=== PATIENT | male | born 1930 | race Caucasian/White ===

== ENCOUNTER 2017-02-11 09:47 | Inpatient (IN) | payer MEDICARE ==
[2017-02-11 11:52] LABS: Basophils % (A) 0 %; CH 30.3; CHCM 32.4; Eosinophils # (A) 0.2 k/uL (0-0.7); Eosinophils % (A) 3 %; HCT 42.2 % (39.0-53.0); HDW 2.49; HGB 13.5 gm/dL (13.0-17.5); Luc # (Auto) 0.11; Luc % (Auto) 2; Lymphocytes # (A) 1.2 k/uL (1.0-4.8); Lymphocytes % (A) 21 %; MCH 30.1 pg (25.0-35.0); MCHC 32.1 g/dL (31.0-37.0); MCV 93.8 fL (80.0-100.0); Mean Platelet Volume 7.1; Monocytes # (A) 0.4 k/uL (0-1.0); Monocytes % (A) 6 %; Neutrophils # (A) 3.9 k/uL (1.3-7.7); Neutrophils % (A) 68 %; RBC 4.49 m/uL (4.30-5.90); RDW 12.4 % (11.5-15.5); WBC 5.7 k/uL (3.8-10.6); WBC (Perox) 5.68
--- NOTE | 2017-02-11 11:59 | P.HPIM ---
History of Present Illness H&P Date: 02/11/17 Chief Complaint: Hallucinations and altered mental status changes His is a 86-year-old male with a known history of hypertension and hypothyroidism. He recently lost his about 2 months ago. He was a direct admit from Dr. Hinds's office since he has been having hallucinations for the past 2-3 days. Patient has been seeing ghosts in his home that may represent his . But sometimes there is 2 ghosts also present in the room. He has had no new meds. He has not been on any pain medications. No evidence of any signs of acute infection. He has been admitted to the hospital for further evaluation and to rule out a possible stroke. Computed tomography scan of the brain has been ordered. Counseled in place for neurology and psychiatry. He has been admitted to the telemetry floor. We'll check urinalysis to rule out a UTI. Check chest x-ray and CBC and BMP. Patient denies any fever chills or sweats. Denies any nausea or vomiting. Denies any bowel movement changes or urinary symptoms. Patient denies any dizziness or lightheadedness. He denies any slurred speech or facial droop. He denies any numbness or tingling and on one side of his body. He does report that he has been eating mostly sandwiches in August had not been drinking as much water as he should be. 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 History of Any Multi-Drug Resistant Organisms: None Reported Past Surgical History: Cholecystectomy Additional Past Surgical History / Comment(s): Colonoscopy, cataract removal bilaterally. Past Anesthesia/Blood Transfusion Reactions: No Reported Reaction Smoking Status: Never smoker Past Alcohol Use History: Occasional - Past Family History Mother Family Medical History: No Reported History Additional Family Medical History / Comment(s): Mother was healthy and lived to be 92 yrs old. Father Family Medical History: Unable to Obtain Additional Family Medical History / Comment(s): Father at the age of 52 yrs in [place] Medications and Allergies Home Medications Medication Instructions Recorded Confirmed Type Aspirin EC [Ecotrin Low Dose] 81 mg PO DAILY 02/11/17 02/11/17 History Atenolol [Tenormin] 37.5 mg PO DAILY 02/11/17 02/11/17 History Levothyroxine Sodium [Synthroid] 88 mcg PO DAILY 02/11/17 02/11/17 History Magnesium Chloride [Slow Mag] 64 mg PO DAILY 02/11/17 02/11/17 History Multivitamins, Thera [Multivitamin 1 tab PO DAILY 02/11/17 02/11/17 History (formulary)] Potassium Chloride [Klor-Con 10] 10 meq PO DAILY 02/11/17 02/11/17 History Allergies Allergy/AdvReac Type Severity Reaction Status Date / Time No Known Allergies Allergy Verified 02/11/17 10:38 Physical Exam Vitals: Vital Signs Temp Pulse Resp BP Pulse Ox 02/11/17 10:33 97.4 F L 66 16 130/73 99 Intake and Output 02/10/17 02/11/17 02/11/17 22:59 06:59 14:59 Other: Weight 85.3 kg Patient Weight 02/12/17 06:59 Weight 85.3 kg Head normocephalic Neck supple Lungs clear to auscultation bilaterally no wheezing or crackles Heart regular rate and rhythm S1-S2, no rub or gallop Abdomen is soft nontender nondistended positive bowel sounds no hepatosplenomegaly Extremities mild edema in the left ankle Neuro alert and orientated to 2 disorientated to the date related no facial droop. No slurred speech. Hand smoking pipe coater and lower extremity strength equal bilaterally Thrombosis Risk Factor Assmnt - Choose All That Apply Any of the Below Risk Factors Present?: Yes Other Risk Factors: Yes Each Risk Factor Represents 3 Points: Age 75 years or older Other congenital or acquired thrombophilia - If yes, enter type in comment: No Thrombosis Risk Factor Assessment Total Risk Factor Score: 3 Thrombosis Risk Factor Assessment Level: Moderate Risk Assessment and Plan Assessment: 1. Altered mental status changes with hallucinations: Patient seeing ghosts. Check a computed tomography scan of the brain rule out stroke. Rule out infectious process checking urinalysis and chest x-ray. Check routine blood work CBC and CMP rule out any acute kidney injury or electro imbalance. Consult neurology and psychiatry. We'll start patient on normal saline at 50 mL an hour 2. Essential hypertension: Blood pressures are stable resume atenolol 3. Hypothyroidism: Resume Synthroid 4. GI prophylaxis Pepcid and DVT prophylaxis subcu heparin Time with Patient: Greater than 30 (Greater than 50% of the total time spent in counseling and coordination of care.I performed an examination of the patient and discussed their management with the physician Japanese Interpreter. I have reviewed the Physician Japanese Interpreter's notes and agree with the documented findings and plan of care)
[2017-02-11 12:06] LABS: ALT 39 U/L (21-72); AST 33 U/L (17-59); Alkaline Phosphatase 72 U/L (38-126); Anion Gap 10 mmol/L; Blood Urea Nitrogen 15 mg/dL (9-20); Calcium 9.5 mg/dL (8.4-10.2); Carbon Dioxide 27 mmol/L (22-30); Chloride 105 mmol/L (98-107); Glucose 88 mg/dL (74-99); Non-African American GFR(MDRD) >60 (>60 ml/min/1.73 sqM); Potassium 4.2 mmol/L (3.5-5.1); Sodium 142 mmol/L (137-145); Total Bilirubin 1.8 mg/dL (0.2-1.3); Total Protein 6.9 g/dL (6.3-8.2)
--- NOTE | 2017-02-11 12:40 | CT ---
EXAMINATION TYPE: CT brain wo con DATE OF EXAM: 02/11/2017 COMPARISON: NONE HISTORY: 86-year-old male confusion, mental status changes, rule out stroke. TECHNIQUE: Examination was done in axial plane without intravenous contrast. Coronal and sagittal r econstructions performed. CT DLP: 1054.2 mGycm Automated exposure control for dose reduction was used. FINDINGS: There is no evidence of acute intracranial hemorrhage, acute ischemic changes, mass, mass-effect, or extra-axial fluid collection. There is no effacement of cerebral sulci or basal subarachnoid cister ns. There is no midline shift. Yoo-white matter distinction is preserved. There is mild to moderate generalized supratentorial volume loss and patchy white matter hypodensitie s in both cerebral hemispheres. Old lacunar infarcts in the bilateral basal ganglia and some encephal omalacia within the anterior left subinsular white matter. Secondary mild prominence to the ventricular system. Moderate mucosal thickening ethmoid air cells. Some frothy partial opacification in the right sphenoi d sinus. Mastoid air cells well pneumatized. IMPRESSION: 1. [id number] atrophy and changes of chronic small vessel ischemic disease. No acute intracrani al abnormality seen. 2. Some frothy partial opacification of the right sphenoid sinus can be seen in the setting of acute viral sinusitis.
--- NOTE | 2017-02-11 13:08 | XR ---
EXAMINATION TYPE: XR chest 2V DATE OF EXAM: 02/11/2017 COMPARISON: NONE INDICATION: Confusion rule out pneumonia. No other history is provided. TECHNIQUE: Frontal and lateral views of the chest are obtained. FINDINGS: The heart size is normal. The pulmonary vasculature is normal. The lungs are clear. IMPRESSION: 1. No acute pulmonary process.
[2017-02-11 13:58] LABS: Appearance,Urine Clear (Clear); Bilirubin,Urine Negative (Negative); Glucose,Urine (UA) Negative (Negative); Ketones,Urine Negative (Negative); Leukocyte Esterase,Urine Negative (Negative); Nitrite,Urine Negative (Negative); Protein,Urine Negative (Negative); Specific Gravity,Urine 1.015 (1.001-1.035); UA Billing (MACRO vs. MICRO) CHEM; Urobilinogen,Urine <2.0 mg/dL (<2.0)
[2017-02-11] MEDS: SODIUM CHLORIDE 0.9% 1,000 ML IV SCH (14:27)
--- NOTE | 2017-02-11 20:01 | P.CNNES ---
History of Present Illness Consult date: 02/11/17 History of Present Illness: The patient an 86-year-old white male who states that on Wednesday he saw some people in his house. He states that they were unfamiliar people and he was not sure how they get in. He spoke to them and they did not respond. The images were clear. He did not think it was a hallucination. He thought the images were real. He states that they were not anybody that he had recognized. At one point one of the persons he felt uneasy with because he started touching his feet. He states that person felt hairy. The patient denies any history of hallucinations. He denies any headache dizziness weakness. He states he's been in good health. He states that his he has not had any depression or any recent change in his medications. When asked if he may have taken too much of one of his medicines he says it is a possibility. A CT of the brain which showed age-related atrophy. Recommend admit to the hospital. Denies having any such experience in the past. He states that this only happened on one day which was Wednesday. 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 History of Any Multi-Drug Resistant Organisms: None Reported Past Surgical History: Cholecystectomy Additional Past Surgical History / Comment(s): Colonoscopy, cataract removal bilaterally. Past Anesthesia/Blood Transfusion Reactions: No Reported Reaction Smoking Status: Never smoker Past Alcohol Use History: Occasional - Past Family History Mother Family Medical History: No Reported History Additional Family Medical History / Comment(s): Mother was healthy and lived to be 92 yrs old. Father Family Medical History: Unable to Obtain Additional Family Medical History / Comment(s): Father at the age of 52 yrs in [place] Medications and Allergies Home Medications Medication Instructions Recorded Confirmed Type Aspirin EC [Ecotrin Low Dose] 81 mg PO DAILY 02/11/17 02/11/17 History Atenolol [Tenormin] 37.5 mg PO DAILY 02/11/17 02/11/17 History Levothyroxine Sodium [Synthroid] 88 mcg PO DAILY 02/11/17 02/11/17 History Magnesium Chloride [Slow Mag] 64 mg PO DAILY 02/11/17 02/11/17 History Multivitamins, Thera [Multivitamin 1 tab PO DAILY 02/11/17 02/11/17 History (formulary)] Potassium Chloride [Klor-Con 10] 10 meq PO DAILY 02/11/17 02/11/17 History Allergies Allergy/AdvReac Type Severity Reaction Status Date / Time No Known Allergies Allergy Verified 02/11/17 10:38 Physical Examination - Vital Signs Vital Signs: Vital Signs Temp Pulse Resp BP Pulse Ox 02/11/17 17:00 96.6 F L 64 16 126/64 100 02/11/17 13:55 72 16 125/58 96 02/11/17 11:00 72 16 02/11/17 10:33 97.4 F L 66 16 130/73 99 Intake and Output 02/11/17 02/11/17 02/11/17 06:59 14:59 22:59 Intake Total 220 380 Output Total 400 250 Balance -180 130 Intake: Intake, IV Titration 200 Amount Sodium Chloride 0.9% 1, 200 000 ml @ 50 mls/hr IV . Q20H [facility] Rx#:[id number] Oral 220 180 Output: Urine 400 250 Other: # Voids 2 Weight 85.3 kg Patient Weight 02/12/17 06:59 Weight 85.3 kg - Constitutional General appearance: average body habitus - EENT EENT: PERRL, hearing intact, vision intact - Respiratory Respiratory: lungs clear, normal breath sounds - Cardiovascular Cardiovascular: regular rate, normal S1, normal S2 - Integumentary Integumentary: normal - Neurologic Logic examination mental status he was awake alert oriented 3 his speech was fluent there was no a aphasia or dysarthria Cranial nerve examination: PERRL, EOMI, VFF, V1/V2/V3 grossly intact, face symmetric, tongue midline Speech examination: intact Detailed motor examination: grossly full strength in all extremities Reflexes: 2+: knee - Psychiatric Psychiatric: mood/affect appropriate Results - Laboratory Findings CBC and BMP: 02/11/17 11:31 02/11/17 11:31 Abnormal Lab Findings: Abnormal Labs 02/11/17 11:31 Total Bilirubin 1.8 H Assessment and Plan (1) Episodes of formed visual hallucinations Current Visit: Yes Status: Acute SNOMED Code(s): 92133217 Plan: The patient is an 86-year-old man who had an episode of visual hallucination which was a clear image of a few people on one day. The patient is alert and oriented there is no evidence of delirium. There is no history of psychiatric history. One of the images that he saw on Wednesday was a threatening unwanted person. Sedation is of unclear etiology. He had a CT of the brain which showed some age-related atrophy. Is possible that medication may have had some effect and it is unclear whether he had consumed any alcohol that day. Recommend Thyroid and B12 screening And EEG.
[2017-02-11] MEDS: HEPARIN SODIUM,PORCINE 5,000 UNIT/ML 1 ML VIAL SQ SCH (20:33)
[2017-02-12] MEDS: LEVOTHYROXINE 88 MCG TAB PO SCH (06:43)
[2017-02-12 06:45] LABS: Basophils % (A) 0 %; CHCM 33.4; Eosinophils # (A) 0.2 k/uL (0-0.7); Eosinophils % (A) 4 %; HCT 37.7 % (39.0-53.0); HDW 2.35; HGB 12.1 gm/dL (13.0-17.5); Luc % (Auto) 3; Lymphocytes # (A) 1.1 k/uL (1.0-4.8); Lymphocytes % (A) 27 %; MCH 30.8 pg (25.0-35.0); MCV 96.2 fL (80.0-100.0); Mean Platelet Volume 8.4; Monocytes # (A) 0.3 k/uL (0-1.0); Monocytes % (A) 8 %; Neutrophils # (A) 2.3 k/uL (1.3-7.7); Neutrophils % (A) 58 %; RBC 3.92 m/uL (4.30-5.90); RDW 13.4 % (11.5-15.5); WBC (Perox) 3.09
[2017-02-12] MEDS: SODIUM CHLORIDE 0.9% 1,000 ML IV SCH (06:53)
[2017-02-12 06:58] LABS: ALT 37 U/L (21-72); AST 28 U/L (17-59); Alkaline Phosphatase 61 U/L (38-126); Anion Gap 7 mmol/L; Blood Urea Nitrogen 19 mg/dL (9-20); Calcium 9.2 mg/dL (8.4-10.2); Carbon Dioxide 26 mmol/L (22-30); Chloride 107 mmol/L (98-107); Glucose 90 mg/dL (74-99); Non-African American GFR(MDRD) >60 (>60 ml/min/1.73 sqM); Potassium 4.1 mmol/L (3.5-5.1); Sodium 140 mmol/L (137-145); Total Bilirubin 1.3 mg/dL (0.2-1.3); Total Protein 5.7 g/dL (6.3-8.2)
[2017-02-12] MEDS: FAMOTIDINE 20 MG TAB PO SCH (10:46)
[2017-02-12] MEDS: ASPIRIN 81 MG PO SCH (10:46)
[2017-02-12] MEDS: MULTIVITAMINS, THERA 1 EACH TAB PO SCH (10:46)
[2017-02-12] MEDS: HEPARIN SODIUM,PORCINE 5,000 UNIT/ML 1 ML VIAL SQ SCH ×2 (10:46→20:33)
[2017-02-12] MEDS: ATENOLOL 25 MG TAB PO SCH (10:46)
[2017-02-12] MEDS: POTASSIUM CHLORIDE ER 10 MEQ TAB.ER.PRT PO SCH (10:47)
[2017-02-12] MEDS: MAGNESIUM OXIDE 400 MG TAB PO SCH (10:47)
--- NOTE | 2017-02-12 14:18 | P.PN ---
Subjective Progress Note Date: 02/12/17 Principal diagnosis: His is a 86-year-old male with a known history of hypertension and hypothyroidism. He recently lost his about 2 months ago. He was a direct admit from Dr. Hinds's office since he has been having hallucinations for the past 2-3 days. Patient has been seeing ghosts in his home that may represent his . But sometimes there is 2 ghosts also present in the room. He has had no new meds. He has not been on any pain medications. No evidence of any signs of acute infection. He has been admitted to the hospital for further evaluation and to rule out a possible stroke. Computed tomography scan of the brain has been ordered. Counseled in place for neurology and psychiatry. He has been admitted to the telemetry floor. We'll check urinalysis to rule out a UTI. Check chest x-ray and CBC and BMP. Patient denies any fever chills or sweats. Denies any nausea or vomiting. Denies any bowel movement changes or urinary symptoms. Patient denies any dizziness or lightheadedness. He denies any slurred speech or facial droop. He denies any numbness or tingling and on one side of his body. He does report that he has been eating mostly sandwiches in August had not been drinking as much water as he should be. On 02/12/2017 patient is alert and oriented 3 he has no symptoms at this time . he was questioned more about his symptoms, he states that on Wednesday night he had an episode of visual hallucinations where he was seen in people in his home , he lives by himself, he was scared that the time, he called his relatives who came in at night, patient was still seen in people that were not in the room when his relatives were very. He denies consuming any alcohol in the last year or so, he denies taking any medication or supplements other than what's on his list. He had similar episode on Wednesday night and Wednesday night, he was brought in by his son-in-law to the office and was admitted to the hospital. Patient lives by himself and his daughter and son-in-law are out of town till Wednesday night. Objective - Vital Signs Vital signs: Vital Signs Temp 98.0 F 02/12/17 08:00 Pulse 64 02/12/17 11:23 Resp 17 02/12/17 11:23 BP 129/67 02/12/17 11:23 Pulse Ox 98 02/12/17 11:23 Intake & Output 02/11/17 02/12/17 02/12/17 18:59 06:59 18:59 Intake Total 600 720 Output Total 650 Balance -50 720 Weight 85.3 kg 84 kg Intake: Intake, IV Titration 200 Amount Sodium Chloride 0.9% 1, 200 000 ml @ 50 mls/hr IV . Q20H [facility] Rx#:[id number] Oral 400 720 Output: Urine 650 Other: Voiding Method Toilet Urinal # Voids 2 1 - Exam HEENT head normocephalic and atraumatic Neck is supple no JVD no goiter no lymphadenopathy Chest is clear to auscultation no crackles no wheezing Cardiac exam reveals regular heart sounds no murmurs Abdomen is soft nontender no organomegaly Extremity exam reveals no edema no cyanosis or clubbing - Labs CBC & Chem 7: 02/12/17 06:34 02/12/17 06:30 Labs: Abnormal Lab Results - Last 24 Hours (Table) 02/12/17 02/12/17 Range/Units 06:30 06:34 RBC 3.92 L (4.30-5.90) m/uL Hgb 12.1 L (13.0-17.5) gm/dL Hct 37.7 L (39.0-53.0) % Plt Count 144 L (150-450) k/uL Total Protein 5.7 L (6.3-8.2) g/dL Albumin 3.1 L (3.5-5.0) g/dL Microbiology - Last 24 Hours (Table) 02/11/17 13:45 Urine Culture - Preliminary Urine,Clean Catch Assessment and Plan Plan: 1. Altered mental status changes with hallucinations: Patient states he was seeing ghosts. Check a computed tomography scan of the brain rule out stroke. Rule out infectious process checking urinalysis and chest x-ray. Check routine blood work CBC and CMP rule out any acute kidney injury or electro imbalance. Consult neurology and psychiatry. We'll start patient on normal saline at 50 mL an hour At this time no evidence of infection, computed tomography scan with chronic changes without any acute abnormality Awaiting EEG, awaiting psychiatry input 2. Essential hypertension: Blood pressures are stable resume atenolol 3. Hypothyroidism: Resume Synthroid 4. GI prophylaxis Pepcid and DVT prophylaxis subcu heparin
--- NOTE | 2017-02-12 22:18 | P.CN ---
Psychiatric Consult - . Consult date: 02/12/17 Consult:: 02/12/17 21:15 IDENTIFYING DATA: Pt is an 86yo CM who is recently and now living alone. Psychiatry consulted due to reported hallucinations. HPI: Upon evaluation this afternoon, pt states that although he does want to talk to psychiatry, he would prefer if I could come back tomorrow to speak with him. However, he did agree to a brief conversation and some basic questioning. He states that he had been experiencing hallucinations prior to admission, but no hallucinations during his hospital stay. Describes these hallucinations as seeing pillow with their head covered and they will disappear when he tries to touch them. States that these hallucinations do not scare him but do make him feel concerned. Denies auditory hallucinations. Also, eludes to experiencing illusions as well. Describes seeing a machine laying on the shelf in his room but thinking it is a head initially until he looks at it again. He denies any previous h/o psychotic symptoms and these symptoms developed in less than two weeks. Does report some difficulty with memory for the past couple weeks and having difficulty with word finding during evaluation today. No family members present at bedside for collateral information at this time. He denies SI and HI. PAST PSYCHIATRIC HISTORY: none PMH: Hypertension, Osteoarthritis (OA), Pneumonia, Hypothyroid PSH: Cholecystectomy, bilateral cataract removal ALLERGIES: NKDA MEDICATIONS: Active Medications Aspirin (Aspirin) 81 mg PO DAILY [facility] Last Admin: 02/12/17 10:46 Dose: 81 mg Atenolol (Tenormin) 37.5 mg PO DAILY [facility] Last Admin: 02/12/17 10:46 Dose: 37.5 mg Famotidine (Pepcid) 20 mg PO DAILY [facility] Last Admin: 02/12/17 10:46 Dose: 20 mg Heparin Sodium (Porcine) (Heparin) 5,000 unit SQ Q12HR [facility] Last Admin: 02/12/17 20:33 Dose: 5,000 unit Sodium Chloride (Saline 0.9%) 1,000 mls @ 50 mls/hr IV .Q20H [facility] Last Admin: 02/12/17 06:53 Dose: 50 mls/hr Levothyroxine Sodium (Synthroid) 88 mcg PO 0630 [facility] Last Admin: 02/12/17 06:43 Dose: 88 mcg Magnesium Oxide (Mag-Ox) 400 mg PO DAILY [facility] Last Admin: 02/12/17 10:47 Dose: 400 mg Multivitamins (Theragran) 1 each PO 1200 [facility] Last Admin: 02/12/17 10:46 Dose: 1 each Potassium Chloride (K-Dur 10) 10 meq PO DAILY [facility] Last Admin: 02/12/17 10:47 Dose: 10 meq CHEMICAL DEPENDENCY HISTORY: denies use of alcohol and/or illicit substances FAMILY PSYCHIATRIC HISTORY: denies h/o of mental illness, including dementia in family members SOCIAL HISTORY: pt reports that he has been x 3, with the last two resulting in pt becoming a and the first ending in divorce. He was to his 3rd for the past 17 years and she 2 months ago. Pt states that he also lost a close friend of theirs a week after his 's . Pt has children from a previous marriage and a step-daughter from recent marriage. 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 Pt has a highschool education. Has two years of experience after being drafted into the [employer], but cannot recall reason for being sent to [place]. MENTAL STATUS EXAM: Pt is an 86yo male who appears stated age and fairly well- groomed. Speech is spontaneous with normal volume and rate. Has difficulty with word finding throughout exam. Mood is euthymic and affect is appropriate. Denies SI, HI and AH. Reports that he has seen "pillows" at this house that were not there and according to previous documentation resembled humans, including his recently . Oriented to person, time and place. Possible memory impairment vs word-finding difficulty. Judgment and insight is fair. STRENGTHS/WEAKNESSES: support system, cooperation in treatment/recent loss of a spouse, living alone INTELLECTUAL FUNCTIONING: average ASSESSMENT: 1. Psychosis Unspecified 2. R/O MDD, single episode, severe with psychotic features 3. R/O Bereavement 4. R/O Mild Neurocognitive Disorder PLAN: Patient requesting to speak to psychiatry tomorrow when his family members are present. Will follow-up and obtain more collateral information, if available. Also, recommend neurocognitive testing, including an MMSE. Will hold off on starting psychotropic medications for now until more information can be obtained for more definitive diagnosis. If patient medically stable and ready for discharge, he can also follow-up with psychiatry on an outpatient basis for further evaluation and treatment. 02/12/17 22:09 02/12/17 22:17
[2017-02-13] MEDS: SODIUM CHLORIDE 0.9% 1,000 ML IV SCH ×2 (05:45→19:43)
[2017-02-13] MEDS: LEVOTHYROXINE 88 MCG TAB PO SCH (05:46)
[2017-02-13 06:34] LABS: Basophils % (A) 0 %; CH 31.4; CHCM 33.5; Eosinophils # (A) 0.1 k/uL (0-0.7); Eosinophils % (A) 4 %; HGB 13.1 gm/dL (13.0-17.5); Luc # (Auto) 0.11; Luc % (Auto) 3; Lymphocytes # (A) 1.1 k/uL (1.0-4.8); Lymphocytes % (A) 28 %; MCH 30.7 pg (25.0-35.0); MCHC 32.7 g/dL (31.0-37.0); MCV 94.1 fL (80.0-100.0); Mean Platelet Volume 7.7; Monocytes # (A) 0.3 k/uL (0-1.0); Monocytes % (A) 6 %; Neutrophils # (A) 2.3 k/uL (1.3-7.7); Neutrophils % (A) 59 %; RBC 4.26 m/uL (4.30-5.90); RDW 13.6 % (11.5-15.5); WBC 3.9 k/uL (3.8-10.6); WBC (Perox) 4.09
[2017-02-13 06:51] LABS: Chloride 106 mmol/L (98-107); Glucose 85 mg/dL (74-99); Potassium 4.1 mmol/L (3.5-5.1); Sodium 142 mmol/L (137-145)
[2017-02-13 06:52] LABS: ALT 34 U/L (21-72); AST 34 U/L (17-59); Alkaline Phosphatase 62 U/L (38-126); Anion Gap 7 mmol/L; Blood Urea Nitrogen 15 mg/dL (9-20); Calcium 9.6 mg/dL (8.4-10.2); Carbon Dioxide 29 mmol/L (22-30); Non-African American GFR(MDRD) >60 (>60 ml/min/1.73 sqM); Total Bilirubin 1.3 mg/dL (0.2-1.3); Total Protein 6.5 g/dL (6.3-8.2)
[2017-02-13] MEDS: MAGNESIUM OXIDE 400 MG TAB PO SCH (09:06)
[2017-02-13] MEDS: POTASSIUM CHLORIDE ER 10 MEQ TAB.ER.PRT PO SCH (09:06)
[2017-02-13] MEDS: FAMOTIDINE 20 MG TAB PO SCH (09:06)
[2017-02-13] MEDS: ASPIRIN 81 MG PO SCH (09:06)
[2017-02-13] MEDS: ATENOLOL 25 MG TAB PO SCH (09:06)
[2017-02-13] MEDS: HEPARIN SODIUM,PORCINE 5,000 UNIT/ML 1 ML VIAL SQ SCH ×3 (09:07→19:43)
[2017-02-13] MEDS: MULTIVITAMINS, THERA 1 EACH TAB PO SCH (09:07)
--- NOTE | 2017-02-13 10:37 | P.PN ---
Subjective Principal diagnosis: His is a 86-year-old male with a known history of hypertension and hypothyroidism. He recently lost his about 2 months ago. He was a direct admit from Dr. Hinds's office since he has been having hallucinations for the past 2-3 days. Patient has been seeing ghosts in his home that may represent his . But sometimes there is 2 ghosts also present in the room. He has had no new meds. He has not been on any pain medications. No evidence of any signs of acute infection. He has been admitted to the hospital for further evaluation and to rule out a possible stroke. Computed tomography scan of the brain has been ordered. Counseled in place for neurology and psychiatry. He has been admitted to the telemetry floor. We'll check urinalysis to rule out a UTI. Check chest x-ray and CBC and BMP. Patient denies any fever chills or sweats. Denies any nausea or vomiting. Denies any bowel movement changes or urinary symptoms. Patient denies any dizziness or lightheadedness. He denies any slurred speech or facial droop. He denies any numbness or tingling and on one side of his body. He does report that he has been eating mostly sandwiches in August had not been drinking as much water as he should be. On 02/12/2017 patient is alert and oriented 3 he has no symptoms at this time . he was questioned more about his symptoms, he states that on Wednesday night he had an episode of visual hallucinations where he was seen in people in his home , he lives by himself, he was scared that the time, he called his relatives who came in at night, patient was still seen in people that were not in the room when his relatives were very. He denies consuming any alcohol in the last year or so, he denies taking any medication or supplements other than what's on his list. He had similar episode on Wednesday night and Wednesday night, he was brought in by his son-in-law to the office and was admitted to the hospital. Patient lives by himself and his daughter and son-in-law are out of town till Wednesday night. on 02/13/2017 patient is alert and oriented 3 he had no episodes of hallucination since admission he was evaluated by psychiatry yesterday, psychiatrist still trying to collect more information prior to starting him on any medications, patient is medically stable, his family is out of town until tomorrow, will arrange for discharge to home tomorrow if stable family can pick him up on the way home from [facility] per patient. Objective - Vital Signs Vital signs: Vital Signs Temp 97.7 F 02/13/17 09:09 Pulse 72 02/13/17 09:09 Resp 18 02/13/17 09:09 BP 100/46 02/13/17 09:09 Pulse Ox 96 02/13/17 04:00 Intake & Output 02/12/17 02/13/17 02/13/17 18:59 06:59 18:59 Intake Total 1560 200 240 Output Total 200 100 Balance 1560 0 140 Weight 83 kg Intake: Intake, IV Titration 600 Amount Sodium Chloride 0.9% 1, 600 000 ml @ 50 mls/hr IV . Q20H SHASTA Rx#:[id number] Oral 960 200 240 Output: Urine 200 100 Other: Voiding Method Toilet Toilet Urinal Urinal # Voids 1 1 - Exam HEENT head normocephalic and atraumatic Neck is supple no JVD no goiter no lymphadenopathy Chest is clear to auscultation no crackles no wheezing Cardiac exam reveals regular heart sounds no murmurs Abdomen is soft nontender no organomegaly Extremity exam reveals no edema no cyanosis or clubbing - Labs CBC & Chem 7: 02/13/17 05:51 02/13/17 05:48 Labs: Abnormal Lab Results - Last 24 Hours (Table) 02/13/17 Range/Units 05:51 RBC 4.26 L (4.30-5.90) m/uL Microbiology - Last 24 Hours (Table) 02/11/17 13:45 Urine Culture - Final Urine,Clean Catch Assessment and Plan Plan: 1. Altered mental status changes with hallucinations: Patient states he was seeing ghosts. Check a computed tomography scan of the brain rule out stroke. Rule out infectious process checking urinalysis and chest x-ray. Check routine blood work CBC and CMP rule out any acute kidney injury or electro imbalance. Consult neurology and psychiatry. We'll start patient on normal saline at 50 mL an hour At this time no evidence of infection, computed tomography scan with chronic changes without any acute abnormality Awaiting EEG, psychiatry consult reviewed awaiting further input about possible psychiatric medication for psychosis if needed. Will follow in a.m. possible discharge to home tomorrow if stable. 2. Essential hypertension: Blood pressures are stable resume atenolol 3. Hypothyroidism: Resume Synthroid 4. GI prophylaxis Pepcid and DVT prophylaxis subcu heparin
--- NOTE | 2017-02-13 21:42 | EEG ---
ELECTROENCEPHALOGRAM REPORT DATE OF EE02/12/2017. REFERRING PHYSICIAN: Dr. Hinds. CONSULTING AND INTERPRETING PHYSICIAN: Dr. Mary Alarcon. INDICATION FOR EXAMINATION: This patient is an 86-year-old male being evaluated for hallucinations and possible stroke. AGE: 86. EEG FINDINGS: A routine 21-channel awake digital EEG recording was accomplished utilizing the 10-20 international system with bipolar and referential montages. The background activity in the most alert resting state consists of a low to medium amplitude, fairly well- developed and well-sustained 6-7 Hz activity over the posterior head regions. This posterior rhythm attenuates to eye opening. There is a small amount of low amplitude 18-20 Hz beta activity seen maximally over the anterior head regions. Muscle and movement artifact was observed on a few occasions during the tracing. Hyperventilation was not performed. Photic stimulation at flash frequencies of 2-30 Hz produced a minimal occipital driving response. No epileptiform discharges were seen. IMPRESSION: This EEG is moderately abnormal in a diffuse fashion due to slowing of the EEG background. The EEG failed to reveal any focal, lateralized or epileptiform MMODL / IJN: [id number] /
--- NOTE | 2017-02-13 21:49 | EEG ---
ELECTROENCEPHALOGRAM REPORT ADDENDUM: Abnormalities. Clinical correlation is recommended. MMODL / IJN: [id number] /
[2017-02-14] MEDS: LEVOTHYROXINE 88 MCG TAB PO SCH (06:33)
[2017-02-14] MEDS: ASPIRIN 81 MG PO SCH (07:36)
[2017-02-14] MEDS: ATENOLOL 25 MG TAB PO SCH (07:36)
[2017-02-14] MEDS: POTASSIUM CHLORIDE ER 10 MEQ TAB.ER.PRT PO SCH (07:36)
[2017-02-14] MEDS: MAGNESIUM OXIDE 400 MG TAB PO SCH (07:36)
[2017-02-14] MEDS: FAMOTIDINE 20 MG TAB PO SCH (07:36)
[2017-02-14 07:41] VITALS: PULSE 73; TEMP 97.8
[2017-02-14 07:47] LABS: Basophils % (A) 0 %; CH 30.6; CHCM 32.9; Eosinophils # (A) 0.2 k/uL (0-0.7); Eosinophils % (A) 4 %; HCT 41.3 % (39.0-53.0); Luc # (Auto) 0.08; Luc % (Auto) 2; Lymphocytes # (A) 1.2 k/uL (1.0-4.8); Lymphocytes % (A) 24 %; MCH 29.6 pg (25.0-35.0); MCHC 31.6 g/dL (31.0-37.0); MCV 93.7 fL (80.0-100.0); Mean Platelet Volume 7.3; Monocytes # (A) 0.3 k/uL (0-1.0); Monocytes % (A) 6 %; Neutrophils # (A) 3.3 k/uL (1.3-7.7); Neutrophils % (A) 64 %; RBC 4.41 m/uL (4.30-5.90); RDW 12.3 % (11.5-15.5); WBC 5.1 k/uL (3.8-10.6); WBC (Perox) 5.03
[2017-02-14] MEDS: HEPARIN SODIUM,PORCINE 5,000 UNIT/ML 1 ML VIAL SQ SCH (07:57)
[2017-02-14 08:06] LABS: ALT 31 U/L (21-72); AST 32 U/L (17-59); Alkaline Phosphatase 63 U/L (38-126); Anion Gap 9 mmol/L; Blood Urea Nitrogen 18 mg/dL (9-20); Calcium 9.7 mg/dL (8.4-10.2); Carbon Dioxide 28 mmol/L (22-30); Chloride 106 mmol/L (98-107); Glucose 86 mg/dL (74-99); Non-African American GFR(MDRD) >60 (>60 ml/min/1.73 sqM); Potassium 4.2 mmol/L (3.5-5.1); Sodium 143 mmol/L (137-145); Total Protein 6.5 g/dL (6.3-8.2)
[2017-02-14] MEDS: MULTIVITAMINS, THERA 1 EACH TAB PO SCH (11:47)
--- NOTE | 2017-02-14 14:05 | P.DS ---
Providers Date of admission: 02/11/17 10:01 Expected date of discharge: 02/14/17 Attending physician: Natalia Hinds Consults: 02/11/17 11:01 Consult Physician Routine Consulting Provider: Mary Alarcon Consult Reason/Comments: mental status changes. hallucination Do you want consulting provider notified?: Yes 02/11/17 11:02 Consult Physician Routine Consulting Provider: Seng Farley Consult Reason/Comments: hallucinations, altered mental status Do you want consulting provider notified?: Already Contacted Primary care physician: Natalia Hinds [facility] Course: Diagnoses on discharge: 1. Altered mental status changes with hallucinations: Patient states he was seeing ghosts. Check a computed tomography scan of the brain rule out stroke. Rule out infectious process checking urinalysis and chest x-ray. Check routine blood work CBC and CMP rule out any acute kidney injury or electro imbalance. Consult neurology and psychiatry. We'll start patient on normal saline at 50 mL an hour At this time no evidence of infection, computed tomography scan with chronic changes without any acute abnormality Awaiting EEG, psychiatry consult reviewed awaiting further input about possible psychiatric medication for psychosis if needed. Will follow in a.m. possible discharge to home tomorrow if stable. 2. Essential hypertension: Blood pressures are stable resume atenolol 3. Hypothyroidism: Resume Synthroid Hospital course: His is a 86-year-old male with a known history of hypertension and hypothyroidism. He recently lost his about 2 months ago. He was a direct admit from Dr. Hinds's office since he has been having hallucinations for the past 2-3 days. Patient has been seeing ghosts in his home that may represent his . But sometimes there is 2 ghosts also present in the room. He has had no new meds. He has not been on any pain medications. No evidence of any signs of acute infection. He has been admitted to the hospital for further evaluation and to rule out a possible stroke. Computed tomography scan of the brain has been ordered. Counseled in place for neurology and psychiatry. He has been admitted to the telemetry floor. We'll check urinalysis to rule out a UTI. Check chest x-ray and CBC and BMP. Patient denies any fever chills or sweats. Denies any nausea or vomiting. Denies any bowel movement changes or urinary symptoms. Patient denies any dizziness or lightheadedness. He denies any slurred speech or facial droop. He denies any numbness or tingling and on one side of his body. He does report that he has been eating mostly sandwiches in August had not been drinking as much water as he should be. On 02/12/2017 patient is alert and oriented 3 he has no symptoms at this time . he was questioned more about his symptoms, he states that on Wednesday night he had an episode of visual hallucinations where he was seen in people in his home , he lives by himself, he was scared that the time, he called his relatives who came in at night, patient was still seen in people that were not in the room when his relatives were very. He denies consuming any alcohol in the last year or so, he denies taking any medication or supplements other than what's on his list. He had similar episode on Wednesday night and Wednesday night, he was brought in by his son-in-law to the office and was admitted to the hospital. Patient lives by himself and his daughter and son-in-law are out of town till Wednesday night. on 02/13/2017 patient is alert and oriented 3 he had no episodes of hallucination since admission he was evaluated by psychiatry yesterday, psychiatrist still trying to collect more information prior to starting him on any medications, patient is medically stable, his family is out of town until tomorrow, will arrange for discharge to home tomorrow if stable family can pick him up on the way home from [facility] per patient. On 02/14/2017 patient is alert and oriented 3 no new episodes of hallucination , no new recommendation from psychiatry Continue was current medication patient will be discharged home today. Follow- up in the office in 2-3 days will arrange for follow-up with psychiatry as outpatient Plan - Discharge Summary Discharge Rx Participant: Yes New Discharge Prescriptions: Continue Potassium Chloride [Klor-Con 10] 10 meq PO DAILY Magnesium Chloride [Slow-Mag] 64 mg PO DAILY Levothyroxine Sodium [Synthroid] 88 mcg PO DAILY Multivitamins, Thera [Multivitamin (formulary)] 1 tab PO DAILY Atenolol [Tenormin] 37.5 mg PO DAILY Aspirin EC [Ecotrin Low Dose] 81 mg PO DAILY Discharge Medication List Aspirin EC [Ecotrin Low Dose] 81 mg PO DAILY 02/11/17 [History] Atenolol [Tenormin] 37.5 mg PO DAILY 02/11/17 [History] Levothyroxine Sodium [Synthroid] 88 mcg PO DAILY 02/11/17 [History] Magnesium Chloride [Slow-Mag] 64 mg PO DAILY 02/11/17 [History] Multivitamins, Thera [Multivitamin (formulary)] 1 tab PO DAILY 02/11/17 [History ] Potassium Chloride [Klor-Con 10] 10 meq PO DAILY 02/11/17 [History] Follow up Appointment(s)/Referral(s): Natalia Hinds MD [Primary Care Provider] - 1 Week Patient Instructions/Handouts: Hallucinations (DC) Activity/Diet/Wound Care/Special Instructions: no preference in time for appointments
[2017-02-14 15:25] VITALS: BP 132/91; RESP 16
== END 2017-02-14 17:25 | disposition home or self-care (01) | DRG 948 ==
LOC: 6SEL 10:01 → 4MS4W 02-13 21:43
PROVIDERS: ADMIT Internal Medicine; ATTEND Internal Medicine
DX: R41.82 Altered mental status, unspecified (principal); I10 Essential (primary) hypertension; R44.1 Visual hallucinations; E03.9 Hypothyroidism, unspecified; M17.0 Bilateral primary osteoarthritis of knee; K59.00 Constipation, unspecified; Z79.899 Other long term (current) drug therapy; Z79.82 Long term (current) use of aspirin; Z90.49 Acquired absence of other specified parts of digestive tract; Z98.42 Cataract extraction status, left eye; Z98.41 Cataract extraction status, right eye; Z87.440 Personal history of urinary (tract) infections
CPT/HCPCS: 70450; 71020; 80053; 81003; 84443; 85025; 87086; 95819

== ENCOUNTER 2017-04-30 11:26 | Inpatient (IN) | payer MEDICARE ==
[2017-04-30] MEDS ORDERED: SODIUM CHLORIDE 0.9% 1,000 ML IV STA (11:58)
--- NOTE | 2017-04-30 12:10 | ED ---
Syncope HPI - General Chief Complaint: Syncope Stated Complaint: Fall Time Seen by Provider: 04/30/17 11:46 Source: patient, RN notes reviewed Mode of arrival: wheelchair Limitations: no limitations - History of Present Illness Initial Comments: This is a 86-year-old male who came in for evaluation for a syncopal episode. He states he was walking downstairs this morning when he suddenly passed out at the floor with left-sided head. Of note he has had some frequent falls recently he states it is [place] he fell off of a step hitting the back to his left skull on the cement floor. He states he initially couldn't walk or the first week but then started developing difficulty with certain movements and ambulation. He was off balance a. He no blurry vision no fevers chills or sweats no focal weakness to his arms or legs. He states also in December he had a fall where he had bruising to his right upper extremity. Currently he has no complaints no headache dizziness no blurry vision going to escape. Blurry vision with certain head movements. MD Complaint: loss of consciousness - Related Data Home Medications Medication Instructions Recorded Confirmed Aspirin EC [Ecotrin Low Dose] 81 mg PO MOWEFR 02/11/17 04/30/17 Levothyroxine Sodium [Synthroid] 88 mcg PO DAILY 02/11/17 04/30/17 Potassium Chloride [Klor-Con 10] 10 meq PO DAILY 02/11/17 04/30/17 Atenolol [Tenormin] 75 mg PO DAILY 04/30/17 04/30/17 Multivit-Min/FA/Lycopen/Lutein 1 tab PO DAILY 04/30/17 04/30/17 [Centrum Silver Tablet] Vit A/Vit C/Vit E/Zinc/Copper 1 cap PO DAILY 04/30/17 04/30/17 [ICAPS SOFTGEL] Allergies Allergy/AdvReac Type Severity Reaction Status Date / Time No Known Allergies Allergy Verified 04/30/17 12:45 Review of Systems ROS Statement: Those systems with pertinent positive or pertinent negative responses have been documented in the HPI. ROS Other: All systems not noted in ROS Statement are negative. Past Medical History Past Medical History: Hypertension, Osteoarthritis (OA), Pneumonia, Thyroid Disorder Additional Past Medical History / Comment(s): Hypothyroid, UTI, 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 History of Any Multi-Drug Resistant Organisms: None Reported Past Surgical History: Cholecystectomy Additional Past Surgical History / Comment(s): Colonoscopy, cataract removal bilaterally. Past Anesthesia/Blood Transfusion Reactions: No Reported Reaction Past Psychological History: No Psychological Hx Reported Smoking Status: Never smoker Past Alcohol Use History: Occasional Past Drug Use History: None Reported - Past Family History Mother Family Medical History: No Reported History Additional Family Medical History / Comment(s): Mother was healthy and lived to be 92 yrs old. Father Family Medical History: Unable to Obtain Additional Family Medical History / Comment(s): Father at the age of 52 yrs in [place] General Exam - General Exam Comments Initial Comments: Is a well-developed well-nourished awake alert oriented times female he does demonstrate a Pardeep Coma Scale of 15 Limitations: no limitations General appearance: alert, in no apparent distress Head exam: Present: atraumatic, normocephalic, normal inspection Eye exam: Present: normal appearance, PERRL, EOMI. Absent: scleral icterus, conjunctival injection, periorbital swelling ENT exam: Present: normal exam, mucous membranes moist Neck exam: Present: normal inspection. Absent: tenderness, meningismus, lymphadenopathy Respiratory exam: Present: normal lung sounds bilaterally. Absent: respiratory distress, wheezes, rales, rhonchi, stridor Cardiovascular Exam: Present: normal rhythm, bradycardia. Absent: systolic murmur, diastolic murmur, rubs, gallop, clicks GI/Abdominal exam: Present: soft, normal bowel sounds. Absent: distended, tenderness, guarding, rebound, rigid Extremities exam: Present: normal inspection, full ROM, normal capillary refill. Absent: tenderness, pedal edema, joint swelling, calf tenderness Back exam: Present: normal inspection Neurological exam: Present: alert, oriented X3, CN II-XII intact Psychiatric exam: Present: normal affect, normal mood Skin exam: Present: warm, dry, intact, normal color. Absent: rash Course Vital Signs 04/30/17 11:34 Temperature 97.7 F Pulse Rate 48 L Respiratory 20 Rate Blood Pressure 161/79 O2 Sat by Pulse 96 Oximetry EKG Findings - EKG Results: EKG: interpreted by ERMTyree, sinus rhythm (Sinus rhythm a 68 occasional PVC HI interval 204 QRS 118 daily since QTC of 44/429 poor R-wave progression noted.) Medical Decision Making - Medical Decision Making I did discuss with the patient and Dr. Burroughs the results and the findings. The patient will be admitted for evaluation of syncope. - Lab Data Result diagrams: 04/30/17 11:56 04/30/17 11:56 Lab Results 04/30/17 04/30/17 04/30/17 Range/Units 11:56 11:56 11:56 WBC 6.2 (3.8-10.6) k/uL RBC 4.44 (4.30-5.90) m/uL Hgb 13.1 (13.0-17.5) gm/dL Hct 41.3 (39.0-53.0) % MCV 92.9 (80.0-100.0) fL MCH 29.4 (25.0-35.0) pg MCHC 31.6 (31.0-37.0) g/dL RDW 14.0 (11.5-15.5) % Plt Count 180 (150-450) k/uL Neutrophils % 73 % Lymphocytes % 16 % Monocytes % 7 % Eosinophils % 2 % Basophils % 0 % Neutrophils # 4.5 (1.3-7.7) k/uL Lymphocytes # 1.0 (1.0-4.8) k/uL Monocytes # 0.4 (0-1.0) k/uL Eosinophils # 0.1 (0-0.7) k/uL Basophils # 0.0 (0-0.2) k/uL PT (9.0-12.0) sec INR (<1.2) APTT (22.0-30.0) sec Sodium 142 (137-145) mmol/L Potassium 4.2 (3.5-5.1) mmol/L Chloride 103 (98-107) mmol/L Carbon Dioxide 31 H (22-30) mmol/L Anion Gap 8 mmol/L BUN 17 (9-20) mg/dL Creatinine 0.98 (0.66-1.25) mg/dL Est GFR (MDRD) Af Amer >60 (>60 ml/min/1.73 sqM) Est GFR (MDRD) Non-Af >60 (>60 ml/min/1.73 sqM) Glucose 84 (74-99) mg/dL Calcium 9.5 (8.4-10.2) mg/dL Total Bilirubin 1.0 (0.2-1.3) mg/dL AST 38 (17-59) U/L ALT 48 (21-72) U/L Alkaline Phosphatase 66 (38-126) U/L Total Creatine Kinase 65 (55-170) U/L CK-MB (CK-2) 1.0 (0.0-2.4) ng/mL CK-MB (CK-2) Rel Index 1.5 Troponin I <0.012 (0.000-0.034) ng/mL Total Protein 6.5 (6.3-8.2) g/dL Albumin 3.8 (3.5-5.0) g/dL 04/30/17 Range/Units 11:56 WBC (3.8-10.6) k/uL RBC (4.30-5.90) m/uL Hgb (13.0-17.5) gm/dL Hct (39.0-53.0) % MCV (80.0-100.0) fL MCH (25.0-35.0) pg MCHC (31.0-37.0) g/dL RDW (11.5-15.5) % Plt Count (150-450) k/uL Neutrophils % % Lymphocytes % % Monocytes % % Eosinophils % % Basophils % % Neutrophils # (1.3-7.7) k/uL Lymphocytes # (1.0-4.8) k/uL Monocytes # (0-1.0) k/uL Eosinophils # (0-0.7) k/uL Basophils # (0-0.2) k/uL PT 10.6 (9.0-12.0) sec INR 1.1 (<1.2) APTT 25.0 (22.0-30.0) sec Sodium (137-145) mmol/L Potassium (3.5-5.1) mmol/L Chloride (98-107) mmol/L Carbon Dioxide (22-30) mmol/L Anion Gap mmol/L BUN (9-20) mg/dL Creatinine (0.66-1.25) mg/dL Est GFR (MDRD) Af Amer (>60 ml/min/1.73 sqM) Est GFR (MDRD) Non-Af (>60 ml/min/1.73 sqM) Glucose (74-99) mg/dL Calcium (8.4-10.2) mg/dL Total Bilirubin (0.2-1.3) mg/dL AST (17-59) U/L ALT (21-72) U/L Alkaline Phosphatase (38-126) U/L Total Creatine Kinase (55-170) U/L CK-MB (CK-2) (0.0-2.4) ng/mL CK-MB (CK-2) Rel Index Troponin I (0.000-0.034) ng/mL Total Protein (6.3-8.2) g/dL Albumin (3.5-5.0) g/dL - Radiology Data Radiology results: report reviewed (I did review the imaging and report no acute findings.), image reviewed Disposition Clinical Impression: Syncope and collapse, Bradycardia Disposition: ADMITTED IP TO THIS [facility] Condition: Stable Referrals: Natalia Hinds MD [Primary Care Provider] - 1-2 days
[2017-04-30 12:11] LABS: Basophils % (A) 0 %; Eosinophils # (A) 0.1 k/uL (0-0.7); Eosinophils % (A) 2 %; HCT 41.3 % (39.0-53.0); HGB 13.1 gm/dL (13.0-17.5); Lymphocytes % (A) 16 %; MCH 29.4 pg (25.0-35.0); MCHC 31.6 g/dL (31.0-37.0); MCV 92.9 fL (80.0-100.0); Mean Platelet Volume 8.1; Monocytes # (A) 0.4 k/uL (0-1.0); Monocytes % (A) 7 %; Neutrophils # (A) 4.5 k/uL (1.3-7.7); Neutrophils % (A) 73 %; Platelet Count 180 k/uL (150-450); RBC 4.44 m/uL (4.30-5.90); WBC 6.2 k/uL (3.8-10.6)
[2017-04-30 12:22] LABS: ALT 48 U/L (21-72); AST 38 U/L (17-59); Albumin 3.8 g/dL (3.5-5.0); Alkaline Phosphatase 66 U/L (38-126); Anion Gap 8 mmol/L; Blood Urea Nitrogen 17 mg/dL (9-20); Calcium 9.5 mg/dL (8.4-10.2); Carbon Dioxide 31 mmol/L (22-30); Chloride 103 mmol/L (98-107); Glucose 84 mg/dL (74-99); Potassium 4.2 mmol/L (3.5-5.1); Sodium 142 mmol/L (137-145); Total Protein 6.5 g/dL (6.3-8.2)
--- NOTE | 2017-04-30 12:24 | CT ---
EXAMINATION TYPE: CT brain wo con DATE OF EXAM: 04/30/2017 HISTORY: Fall on [place]. Feeling off balance since CT DLP: 926.5 mGycm. Automated Exposure Control for Dose Reduction was Utilized. TECHNIQUE: CT scan of the head is performed without contrast. COMPARISON: CT brain February 11, 2017. FINDINGS: There is no acute intracranial hemorrhage or midline shift identified. There is diffuse v entricular and sulcal prominence consistent with diffuse age-related cerebral atrophy. There is low- attenuation in the periventricular white matter consistent with chronic small vessel ischemic change. The globes are intact bilaterally. There is some mild mucosal thickening seen in posterior ethmoid as well as bilateral sphenoid sinuses and partial visualization of opacity posterior right maxillary sinus on axial image 1 favoring mucosal thickening. Vascular calcification distal vertebral and inte rnal carotid arteries is redemonstrated bilaterally. The calvarium is intact. IMPRESSION: No acute intracranial hemorrhage or midline shift. There is fairly moderate diffuse age -related cerebral atrophy and chronic small vessel ischemic change redemonstrated. No significant ludwin nge from prior.
[2017-04-30 12:30] LABS: Creatine Kinase 65 U/L (55-170)
[2017-04-30 12:39] LABS: INR 1.1 (<1.2); Prothrombin Time 10.6 sec (9.0-12.0)
[2017-04-30 12:42] LABS: Troponin I <0.012 ng/mL (0.000-0.034)
--- NOTE | 2017-04-30 13:01 | XR ---
EXAMINATION TYPE: XR chest 2V DATE OF EXAM: 04/30/2017 COMPARISON: Prior chest x-ray February 11, 2017 HISTORY: Chest pain after fall injury. TECHNIQUE: Frontal and lateral views of the chest are obtained. FINDINGS: Seen best on lateral view there is patchy basilar opacity likely corresponds to retrocardi ac region on frontal view. No large pleural effusion or pneumothorax is seen bilaterally. The cardia c silhouette size is enlarged with atherosclerotic and ectatic aorta. The osseous structures are in tact. Cholecystectomy clips are redemonstrated on lateral view. IMPRESSION: New patchy left basilar atelectasis and/or infiltrate. Consider progress two view chest x-ray.
--- NOTE | 2017-04-30 13:17 | XR ---
EXAMINATION TYPE: XR Hip LT and AP Pelvis DATE OF EXAM: 04/30/2017 COMPARISON: NONE HISTORY: Pelvic and left hip pain after fall injury. TECHNIQUE: 2 AP view of the pelvis are obtained. Two views of the left hip are obtained. FINDINGS: There is no acute fracture/dislocation evident in the pelvis. The sacroiliac joints appea r symmetric and unremarkable. There is mild to moderate axial joint space loss in both hips, left gre ater than right. Vascular calcification bilateral pelvis is noted. Two views of left hip show no acute fracture or dislocation. No focal lytic or sclerotic lesion seen in the proximal left femur. Vascular calcification left groin region is noted. IMPRESSION: There is no acute fracture or dislocation in the pelvis or left hip.
[2017-04-30 14:12] LABS: Appearance,Urine Clear (Clear); Bilirubin,Urine Negative (Negative); Blood,Urine Negative (Negative); Color,Urine Yellow; Glucose,Urine (UA) Negative (Negative); Ketones,Urine Negative (Negative); Leukocyte Esterase,Urine Negative (Negative); Nitrite,Urine Negative (Negative); PH, Urine 7.5 (5.0-8.0); Protein,Urine Negative (Negative); Specific Gravity,Urine 1.011 (1.001-1.035); Urobilinogen,Urine <2.0 mg/dL (<2.0)
--- NOTE | 2017-04-30 14:54 | P.HPIM ---
History of Present Illness H&P Date: 04/30/17 Chief Complaint: Frequent falls This is a 86-year-old male with a known past medical history of hypertension and hypothyroidism. Patient presents to the hospital after having frequent falls starting prior to Abdulkadir. He had a fall again this morning where he was walking downstairs and on the last step he continued just to lean forward and he fell hitting the left side of his head on the hardwood floor. He felt that he did not pass out. However, there are concerns that there was a syncopal episode involved per ER report. He is been admitted the hospital for further syncope evaluation. He does report having dizziness upon changing positions from going from a sitting to standing position. He denies any chest pain or shortness of breath. Denies any nausea or vomiting. Denies any fevers chills or sweats, cough, bowel movement changes or urinary symptoms. Computed tomography scan of the brain reveals no acute changes. Chest x-ray showed a new patchy left basilar atelectasis versus infiltrate. Left hip x-ray completed which was negative for any fractures. EKG had shown sinus rhythm with sinus arrhythmia and occasional PVCs. Patient has been admitted to the telemetry for audiology has been consulted. Echo and carotid have been ordered. Patient does still report having issues with hallucinations. He was hospitalized in January for hallucinations and evaluated by psychiatry at that time. 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 History of Any Multi-Drug Resistant Organisms: None Reported Past Surgical History: Cholecystectomy Additional Past Surgical History / Comment(s): Colonoscopy, cataract removal bilaterally. Past Anesthesia/Blood Transfusion Reactions: No Reported Reaction Past Psychological History: No Psychological Hx Reported Smoking Status: Never smoker Past Alcohol Use History: Occasional Past Drug Use History: None Reported - Past Family History Mother Family Medical History: No Reported History Additional Family Medical History / Comment(s): Mother was healthy and lived to be 92 yrs old. Father Family Medical History: Unable to Obtain Additional Family Medical History / Comment(s): Father at the age of 52 yrs in [place] Medications and Allergies Home Medications Medication Instructions Recorded Confirmed Type Aspirin EC [Ecotrin Low Dose] 81 mg PO MOWEFR 10/19/17 01/05/18 History Levothyroxine Sodium [Synthroid] 88 mcg PO DAILY 02/11/17 04/30/17 History Potassium Chloride [Klor-Con 10] 10 meq PO DAILY 02/11/17 04/30/17 History Atenolol [Tenormin] 75 mg PO DAILY 04/30/17 04/30/17 History Multivit-Min/FA/Lycopen/Lutein 1 tab PO DAILY 04/30/17 04/30/17 History [Centrum Silver Tablet] Vit A/Vit C/Vit E/Zinc/Copper 1 cap PO DAILY 04/30/17 04/30/17 History [ICAPS SOFTGEL] Allergies Allergy/AdvReac Type Severity Reaction Status Date / Time No Known Allergies Allergy Verified 04/30/17 12:45 Physical Exam Vitals: Vital Signs Temp Pulse Resp BP Pulse Ox 04/30/17 11:34 97.7 F 48 L 20 161/79 96 Intake and Output 04/29/17 04/30/17 04/30/17 22:59 06:59 14:59 Other: Weight 83.915 kg Patient Weight 05/01/17 06:59 Weight 83.915 kg Head normocephalic Neck supple Lungs clear to auscultation bilaterally no wheezing or crackles Heart regular rate and rhythm S1-S2, no rub or gallop Abdomen is soft nontender nondistended positive bowel sounds no hepatosplenomegaly Extremities no edema Neuro alert and orientated to 2. disorientated to place Results CBC & Chem 7: 04/30/17 11:56 04/30/17 11:56 Labs: Abnormal Lab Results - Last 24 Hours (Table) 04/30/17 Range/Units 11:56 Carbon Dioxide 31 H (22-30) mmol/L Assessment and Plan Assessment: 1. Possible syncopal episode with frequent falls: Computed tomography scan of the brain showed no acute changes. Did reveal moderate diffuse age-related cerebral atrophy and chronic small vessel ischemic changes redemonstrated. EKG shows sinus rhythm with sinus arrhythmia and occasional PVCs. Check orthostatics. Cardiology and neurology has been consulted. Echo and carotid ultrasound have been ordered. Urinalysis is negative. Consult PT OT 2. Essential hypertension resume atenolol 3. Hypothyroidism resume Synthroid 4. Hallucinations patient will be evaluated by psychiatry 5. New patchy left basilar atelectasis and/or infiltrate noted on chest x-ray. Likely this is atelectasis doubt pneumonia. Patient denies any cough or fever. no elevated white count. We'll order incentive spirometer. Repeat a 2 view chest x-ray in a.m. Prophylaxis Pepcid and DVT prophylaxis Lovenox Time with Patient: Greater than 30 (Greater than 50% of the total time spent in counseling and coordination of care.I performed an examination of the patient and discussed their management with the physician Lan/Wan Engineer. I have reviewed the Physician Lan/Wan Engineer's notes and agree with the documented findings and plan of care)
[2017-04-30] MEDS: SODIUM CHLORIDE 0.9% 1,000 ML IV SCH (21:50)
--- NOTE | 2017-04-30 23:16 | P.CNNES ---
History of Present Illness Consult date: 04/30/17 Reason for Consult: Patient admitted with syncope and recent falling spells. History of Present Illness: This patient is a 86-year-old right-handed white male who was brought into the emergency room for evaluation of frequent falls. Patient has a known medical history of hypertension and hypothyroidism. More recently he has been experiencing weakness in his legs and multiple falls since [place] of this past year. He had a fall on the day of admission when he was walking downstairs and got to the last step and suddenly leaned forward and fell. He was able to break his fall with outstretched hand. He did not pass out according to the patient with this episode that had just occurred on his admission day. The patient has difficulty remembering details of his other syncopal or falling spells. He does occasionally notice dizziness and lightheadedness when he changes posture position. He attributes his recent falls more to lightheaded feeling as if he may near pass out. There is some evidence for positional vertigo. He states he has no recent episodes of inner ear her vestibular problems or recent ear infections. He has not had any recent fever or chills. Due to his recent fall today he was brought into the emergency room and underwent further evaluation in the ER by Dr. Castellon. Patient was sent for computed tomography scan of the brain from the emergency room which revealed no acute intracranial hemorrhage or midline shift. There was moderate diffuse age-related cerebral atrophy and chronic small vessel ischemic changes demonstrated. This CAT scan was unchanged from prior CAT scan done on 02/11/2017. Patient also underwent x-ray of the left hip which came back negative for acute fracture or dislocation of the left hip. The patient was found on EKG to have evidence of occasional sinus arrhythmia. Cardiology has been consulted for further evaluation. Patient denies any recent episode of complete blackout spells or falling to the ground unresponsive. He denies any previous history of seizures or major head injury. He does continue to experience positional changes of the head making his symptoms of lightheadedness more noticeable. The patient once again states he has not had any previous history of seizures. We have recommended a routine EEG to be done tomorrow morning for further evaluation. He does have evidence of hallucinations in the past and this is to be evaluated by psychiatry. Patient appears to be quite alert at this time. There is some degree of cortical atrophy noted and we will await further evaluation from psychiatry. Patient once again denies any previous history of head trauma or head injury. He did have a fall around Abdulkadir in which he struck his head but as noted CAT scan of the brain fails to reveal any acute changes. Patient is now admitted and neurology has been consulted for further evaluation and recommendations. Review of Systems Constitutional: Denies chills, Denies fever Eyes: denies blurred vision, denies pain Ears, nose, mouth and throat: Denies headache, Denies sore throat Cardiovascular: Denies chest pain, Denies shortness of breath Respiratory: Denies cough Gastrointestinal: Denies abdominal pain, Denies diarrhea, Denies nausea, Denies vomiting Musculoskeletal: Denies myalgias Integumentary: Denies pruritus, Denies rash Neurological: Reports change in mentation, Reports gait dysfunction, Reports memory loss, Reports syncope, Reports vertigo, Denies numbness, Denies weakness Psychiatric: Reports difficulty concentrating, Reports hallucinations, Denies anxiety, Denies depression Endocrine: Denies fatigue, Denies weight change Past Medical History Past Medical History: Hypertension, Osteoarthritis (OA), Pneumonia, Thyroid Disorder Additional Past Medical History / Comment(s): Hypothyroid, UTI, 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 History of Any Multi-Drug Resistant Organisms: None Reported Past Surgical History: Cholecystectomy Additional Past Surgical History / Comment(s): Colonoscopy, cataract removal bilaterally. Past Anesthesia/Blood Transfusion Reactions: No Reported Reaction Smoking Status: Never smoker - Past Family History Mother Family Medical History: No Reported History Additional Family Medical History / Comment(s): Mother was healthy and lived to be 92 yrs old. Father Family Medical History: Unable to Obtain Additional Family Medical History / Comment(s): Father at the age of 52 yrs in [place] Medications and Allergies Home Medications Medication Instructions Recorded Confirmed Type Aspirin EC [Ecotrin Low Dose] 81 mg PO MOWEFR 02/11/17 04/30/17 History Levothyroxine Sodium [Synthroid] 88 mcg PO DAILY 02/11/17 04/30/17 History Potassium Chloride [Klor-Con 10] 10 meq PO DAILY 02/11/17 04/30/17 History Atenolol [Tenormin] 75 mg PO DAILY 04/30/17 04/30/17 History Multivit-Min/FA/Lycopen/Lutein 1 tab PO DAILY 04/30/17 04/30/17 History [Centrum Silver Tablet] Vit A/Vit C/Vit E/Zinc/Copper 1 cap PO DAILY 04/30/17 04/30/17 History [ICAPS SOFTGEL] Allergies Allergy/AdvReac Type Severity Reaction Status Date / Time No Known Allergies Allergy Verified 04/30/17 12:45 Physical Examination - Vital Signs Vital Signs: Vital Signs Temp Pulse Pulse Resp BP BP Pulse Ox 04/30/17 19:59 97.1 F L 67 18 132/89 96 04/30/17 18:46 98 F 74 16 158/77 97 04/30/17 16:37 77 16 146/78 96 04/30/17 14:25 98 F 72 16 162/76 99 04/30/17 11:34 97.7 F 48 L 20 161/79 96 Intake and Output 04/30/17 04/30/17 04/30/17 06:59 14:59 22:59 Other: Weight 83.915 kg Patient Weight 05/01/17 06:59 Weight 83.915 kg - Constitutional General appearance: average body habitus, cooperative - EENT EENT: PERRL, mucous membranes moist - Respiratory Respiratory: lungs clear, normal breath sounds - Cardiovascular Cardiovascular: regular rate, normal S1, normal S2 Extremities: no peripheral edema bilaterally - Gastrointestinal Gastrointestinal: normoactive bowel sounds - Integumentary Integumentary: normal - Neurologic Cranial nerve examination: PERRL, EOMI, V1/V2/V3 grossly intact, face symmetric , tongue midline, intact gag reflex, intact corneal reflex, normal palatal elevation Speech examination: intact Sensorimotor examination: intact Detailed motor examination: grossly full strength in all extremities Motor examination - right side: 4/5: biceps, triceps, wrist flexion, wrist extension, enterprise data architect, hip flexors, knee extensors, dorsiflexion, toe extension (EHL) , plantarflexion Motor examination - left side: 4/5: biceps, triceps, wrist flexion, wrist extension, enterprise data architect, hip flexors, knee extensors, dorsiflexion, toe extension (EHL) , plantarflexion Detailed sensory examination: intact Reflex and gait examination: intact Reflexes: 1+: ankle, bicep, knee, tricep - Musculoskeletal Musculoskeletal: no pain - Psychiatric Psychiatric: mood/affect appropriate, cooperative Results - Laboratory Findings CBC and BMP: 04/30/17 11:56 04/30/17 11:56 Abnormal Lab Findings: Abnormal Labs 04/30/17 11:56 Carbon Dioxide 31 H Assessment and Plan (1) Syncope and collapse Current Visit: Yes Status: Acute Code(s): R55 - SYNCOPE AND COLLAPSE SNOMED Code(s): 858298676 (2) Acute encephalopathy Current Visit: Yes Status: Acute Code(s): G93.40 - ENCEPHALOPATHY, UNSPECIFIED SNOMED Code(s): 8460738 (3) Sinus bradycardia Current Visit: Yes Status: Acute Code(s): R00.1 - BRADYCARDIA, UNSPECIFIED SNOMED Code(s): 07168997 (4) Vestibular neuronitis Current Visit: Yes Status: Acute Code(s): H81.20 - VESTIBULAR NEURONITIS, UNSPECIFIED EAR SNOMED Code(s): 762052176 Plan: This patient is a pleasant 86-year-old right-handed white male admitted to hospital with recent falls and lightheadedness. Patient had a fall at home walking down several steps at his home. He was brought into the emergency room at [facility] for further evaluation. He was seen in the ER by Dr. Castellon. He was sent for computed tomography scan of the brain and of the left hip the results of which are noted above. CAT scan of the brain failed to reveal any evidence of acute stroke or hemorrhage. There was moderate degree of cerebral atrophy noted with chronic small vessel ischemic changes. Patient was admitted to the hospital for further evaluation. His neurological examination at this time is nonfocal. His clinical history suggests possibility of vasovagal syncope which will be evaluated by cardiology. He did have some degree of cardiac arrhythmia on his EKG. In his differential diagnosis would also include possibility of vestibular neuronitis. Would consider ENT consultation for further assessment. We will obtain routine EEG performed the workup to rule out possible seizure disorder for this patient. This seems to be less likely. He is also being evaluated for history of hallucinations and we will await a psychiatry consultation and their recommendations. Overall this patient's prognosis at this time remains guarded. We will continue close neurological follow-up of this patient during this admission. Time with Patient: Greater than 30
--- NOTE | 2017-05-01 04:10 | US ---
EXAMINATION TYPE: US carotid duplex BILAT DATE OF EXAM: 04/30/2017 COMPARISON: NONE CLINICAL HISTORY: Stenosis per order.. Fall injury EXAM MEASUREMENTS: RIGHT: Peak Systolic Velocity (PSV) cm/sec ----- Right CCA: 43.9 ----- Right ICA: 43.5 ----- Right ECA: 47.9 ICA/CCA ratio: 1.0 RIGHT: End Diastole cm/sec ----- Right CCA: 9.1 ----- Right ICA: 15.8 ----- Right ECA: 4.5 LEFT: Peak Systolic Velocity (PSV) cm/sec ----- Left CCA: 44.9 ----- Left ICA: 42.4 ----- Left ECA: 50.2 ICA/CCA ratio: 0.9 LEFT: End Diastole cm/sec ----- Left CCA: 7.9 ----- Left ICA: 12.5 ----- Left ECA: 0.0 VERTEBRALS (direction of flow): Right Vertebral: Antegrade Left Vertebral: Antegrade Rhythm: Normal Grayscale images show mild to moderate eccentric hyperechoic plaque in right carotid bulb and more mi ld eccentric plaquing left carotid bulb. Velocity measurements and ratios in the visualized portion o f both internal carotid arteries is within normal limits. IMPRESSION: No hemodynamically significant stenosis is seen in either internal carotid artery.
[2017-05-01 06:05] LABS: Basophils % (A) 0 %; Eosinophils # (A) 0.1 k/uL (0-0.7); Eosinophils % (A) 2 %; HCT 35.8 % (39.0-53.0); HGB 11.4 gm/dL (13.0-17.5); Lymphocytes # (A) 1.2 k/uL (1.0-4.8); Lymphocytes % (A) 21 %; MCH 29.4 pg (25.0-35.0); MCHC 31.8 g/dL (31.0-37.0); MCV 92.4 fL (80.0-100.0); Mean Platelet Volume 7.8; Monocytes # (A) 0.4 k/uL (0-1.0); Monocytes % (A) 7 %; Neutrophils # (A) 3.8 k/uL (1.3-7.7); Neutrophils % (A) 67 %; Platelet Count 150 k/uL (150-450); RBC 3.88 m/uL (4.30-5.90); RDW 13.6 % (11.5-15.5); WBC 5.6 k/uL (3.8-10.6)
[2017-05-01 06:14] LABS: ALT 46 U/L (21-72); AST 26 U/L (17-59); Albumin 3.1 g/dL (3.5-5.0); Alkaline Phosphatase 60 U/L (38-126); Anion Gap 7 mmol/L; Blood Urea Nitrogen 14 mg/dL (9-20); Carbon Dioxide 28 mmol/L (22-30); Chloride 105 mmol/L (98-107); Cholesterol 103 mg/dL (<200); Glucose 88 mg/dL (74-99); HDL Cholesterol 36 mg/dL (40-60); LDL Cholesterol,Calculated 52 mg/dL (0-99); Potassium 3.8 mmol/L (3.5-5.1); Sodium 140 mmol/L (137-145); Total Bilirubin 1.2 mg/dL (0.2-1.3); Total Protein 5.6 g/dL (6.3-8.2); Triglycerides 75 mg/dL (<150)
[2017-05-01] MEDS: LEVOTHYROXINE 88 MCG TAB PO SCH (06:38)
--- NOTE | 2017-05-01 06:57 | XR ---
EXAMINATION TYPE: XR chest 2V DATE OF EXAM: 05/01/2017 HISTORY: Shortness of breath. REFERENCE: Previous study dated 04/30/2017. FINDINGS: There is left basilar atelectasis or infiltrate. The heart is upper limits of normal in siz e. Pleural spaces are clear. IMPRESSION: 1. BORDERLINE CARDIOMEGALY. 2. LEFT BASILAR ATELECTASIS VERSUS EARLY INFILTRATE.
--- NOTE | 2017-05-01 08:14 | ECHOF ---
Referral Reason:syncope MEASUREMENTS -------- HEIGHT: 0.0 cm WEIGHT: 0.0 kg BP: RVIDd: 2.7 cm (< 3.3) IVSd: 1.2 cm (0.6 - 1.1) LVIDd: 5.2 cm (3.9 - 5.3) LVPWd: 1.2 cm (0.6 - 1.1) EDV(Teich): 130 ml IVSs: 1.4 cm LVIDs: 3.7 cm LVPWs: 1.3 cm ESV(Teich): 58 ml EF(Teich): 56 % %FS: 29 % SV(Teich): 72 ml LA Diam: 3.4 cm (2.7 - 3.8) LALs A4C: 5.3 cm LAAs A4C: 19.1 cm LAESV A-L A4C: 59 ml LAESV MOD A4C: 57 ml LALs A2C: 5.7 cm LAAs A2C: 18.8 cm LAESV A-L A2C: 53 ml LAESV MOD A2C: 49 ml LAESV(A-L): 58 ml Ao Diam: 3.5 cm (2.0 - 3.7) AV Cusp: 1.6 cm (1.5 - 2.6) LA Diam: 3.7 cm (2.7 - 3.8) EPSS: 0.4 cm MV E Ramesh: 0.55 m/s MV DecT: 301 ms MV Dec Harlan: 1.8 m/s MV A Ramesh: 1.18 m/s MV E/A Ratio: 0.47 MR Vmax: 5.62 m/s MR maxP.42 mmHg AV Vmax: 1.37 m/s AV maxP.51 mmHg AR Vmax: 3.90 m/s AR maxP.96 mmHg AR PHT: 602 ms AR Dec Time: 2075 ms AR Dec Harlan: 1.9 m/s TR Vmax: 2.20 m/s TR maxP.36 mmHg RAP: 5.00 mmHg RVSP: 24.36 mmHg MV EF SLOPE: 37.10 mm/s (70 - 150) MV EXCURSION: 2.05 cm (> 18.000) FINDINGS -------- Sinus rhythm. This was a technically good study. The left ventricular size is normal. Left ventricular wall thickness is normal. Overall left vent ricular systolic function is low-normal with, an EF between 50 - 55 %. The right ventricle is normal in size. The right atrial size is normal. There is moderate aortic valve sclerosis. There is mild aortic regurgitation. The mitral valve leaflets are mild to moderately thickened. Mild mitral annular calcification pres ent. [id number] mitral regurgitation is present. Mild tricuspid regurgitation present. There is no evidence of pulmonary hypertension. The right v entricular systolic pressure, as measured by Doppler, is 24.36mmHg. Moderate pulmonic regurgitation. The aortic root size is normal. There is no pericardial effusion. CONCLUSIONS -------- 1. Sinus rhythm. 2. This was a technically good study. 3. The left ventricular size is normal. 4. Left ventricular wall thickness is normal. 5. Overall left ventricular systolic function is low-normal with, an EF between 50 - 55 %. 6. The right ventricle is normal in size. 7. There is moderate aortic valve sclerosis. 8. There is mild aortic regurgitation. 9. The mitral valve leaflets are mild to moderately thickened. 10. Mild mitral annular calcification present. 11. [id number]-[id number]-xurharoc mitral regurgitation is present. 12. Mild tricuspid regurgitation present. 13. There is no evidence of pulmonary hypertension. 14. Moderate pulmonic regurgitation. 15. The aortic root size is normal. 16. There is no pericardial effusion. METEOROLOGIST LIAISON: Hattie Pineda RDCS
[2017-05-01] MEDS: VIT A,C & E-LUTEIN-MINERALS 1 EACH TAB PO SCH (08:46)
[2017-05-01] MEDS: MULTIVITAMINS, THERA 1 EACH TAB PO SCH (08:46)
[2017-05-01] MEDS: ENOXAPARIN 40 MG/0.4 ML SYRINGE SQ SCH ×2 (08:46→08:49)
[2017-05-01] MEDS: POTASSIUM CHLORIDE ER 10 MEQ TAB.ER.PRT PO SCH (08:46)
[2017-05-01] MEDS: FAMOTIDINE 20 MG TAB PO SCH ×2 (08:46→08:49)
[2017-05-01] MEDS: SODIUM CHLORIDE 0.9% 1,000 ML IV SCH (08:50)
[2017-05-01] MEDS ORDERED: ATENOLOL 25 MG TAB PO SCH (09:00)
[2017-05-01] MEDS: ATENOLOL 25 MG TAB PO SCH (12:04)
--- NOTE | 2017-05-01 12:38 | CONS ---
CONSULTATION Mr. Mendez is an 86-year-old male with known history of hypertension who presented with unsteadiness. Apparently he had on Abdulkadir Ida a fall when he was trying to open the door of his home. He had a similar episode a few months before. Neither one of them was associated with a full syncopal episode. The patient has some dizziness with change in position. He has no knowledge of palpitation. He denies any syncope. He has been followed by Dr. Blackwell in the past. He has no peripheral edema. No history of documented arrhythmia. No PND. No orthopnea. No peripheral edema. During his hospital stay his orthostatic evaluation revealed a drop in the blood pressure standing up. The patient denies any knowledge of any other cardiac issue. He has been admitted in the past with hallucinations. His coronary risk factors are remarkable for history of hypertension. He is a nonsmoker, nondiabetic. No history of documented hyperlipidemia. He came into the hospital because he felt unsteady. He had some sinus bradycardia but no significant pauses. HOME MEDICATIONS: His medications at home included: 1. Potassium. 2. Atenolol 75 mg daily. 3. Levothyroxine 0.088 mg daily. 4. Aspirin once a day. REVIEW OF SYSTEMS: RESPIRATORY SYSTEM: He has no recent wheezing. No cough. No history of obstructive lung disease. GI SYSTEM: No recent GI bleed. No peptic ulcer disease. SYSTEM: No dysuria or hematuria. NERVOUS SYSTEM: No history of seizure. PHYSICAL EXAMINATION: He is an 86-year-old male, alert, oriented, in no apparent distress. His blood pressure sitting down is 146/98, standing up 115/77, heart rate in the 90s. HEAD: Normocephalic. Eyes: Sclerae anicteric. NECK: Good carotid upstroke. No bruit. LUNGS: Clear to auscultation. HEART: Regular rate and rhythm. S1, S2. No S3. Systolic murmur. No diastolic murmur. No rub. ABDOMEN: Soft, nontender. Positive bowel sounds. No organomegaly. EXTREMITIES: No edema. Intact distal pulses. LAB DATA AND IMAGING: Lab data revealed troponin less than 0.012, BUN and creatinine of 14 and 0.8. Cholesterol 103. Hemoglobin 11.4. His EKG revealed a sinus mechanism with a borderline left axis deviation, poor R-wave progression, rate of 68. His chest x-ray showed possible atelectasis. He had an echocardiogram with Doppler done yesterday that revealed a preserved ventricular size and systolic function with mild to moderate mitral regurgitation and mild tricuspid regurgitation. His brain CT showed no acute hemorrhage. IMPRESSION: 1. Episode of dizziness, most likely related to orthostatic hypotension; could be an autonomic dysfunction. No clear evidence of syncope. 2. History of hypertension. RECOMMENDATIONS: From the cardiac standpoint, I will cut down the dose of the beta jaskaran, follow his heart rate and blood pressure, and depending on that, further recommendations will be made. Because of the bradycardia, I will obtain evaluation of thyroid function test. If there is no significant abnormality, then I would not recommend any further cardiac workup. Thank you for this consult. Will follow with you. ASIF / IJN: [id number] /
--- NOTE | 2017-05-01 13:06 | P.PN ---
Subjective Progress Note Date: 05/01/17 Patient is awake and alert this morning. He has a sitter at bedside. Apparently he was more confused last night. He is oriented to himself and to the place this morning. He is unable to answer questions appropriately. There is no neurological focal deficits. Baseline mental status unknown. Objective - Vital Signs Vital signs: Vital Signs Temp 98.5 F 05/01/17 12:00 Pulse 93 05/01/17 12:00 Resp 19 05/01/17 12:00 BP 156/98 05/01/17 12:00 Pulse Ox 98 05/01/17 12:00 Intake & Output 04/30/17 05/01/17 05/01/17 18:59 06:59 18:59 Intake Total 120 Balance 120 Weight 83.915 kg 85 kg Intake: Oral 120 Other: Voiding Method Urinal Toilet # Voids 3 - Exam General: The patient is awake and alert, in no distress Eye: there is normal conjunctiva bilaterally. Neck: The neck is supple, there is no JVD. Cardiovascular: Normal S1-S2, no S3-S4, no murmurs. Respiratory: Lungs clear to auscultation bilaterally Gastrointestinal: Abdomen is soft, nontender Musculoskeletal: There is no pedal edema. Neurological:. Speech is normal. Skin: Skin is warm and dry - Labs CBC & Chem 7: 05/01/17 05:34 05/01/17 05:34 Labs: Abnormal Lab Results - Last 24 Hours (Table) 05/01/17 05/01/17 Range/Units 05:34 05:34 RBC 3.88 L (4.30-5.90) m/uL Hgb 11.4 L (13.0-17.5) gm/dL Hct 35.8 L (39.0-53.0) % Total Protein 5.6 L (6.3-8.2) g/dL Albumin 3.1 L (3.5-5.0) g/dL HDL Cholesterol 36 L (40-60) mg/dL Assessment and Plan Assessment: 1. Pre-syncopal episode with frequent falls: Computed tomography scan of the brain showed no acute changes. Did reveal moderate diffuse age-related cerebral atrophy and chronic small vessel ischemic changes redemonstrated. EKG shows sinus rhythm with sinus arrhythmia and occasional PVCs. Echocardiogram showed preserved EF with no significant valvular abnormalities. Carotid Doppler with no significant hemodynamic stenosis. Patient was seen and evaluated by cardiology and neurology. PT/OT consultation requested. 2. Essential hypertension resume atenolol. We will check orthostatic blood pressure every shift to tomorrow. 3. Hypothyroidism resume Synthroid. TSH within normal range. 4. Hallucinations patient will be evaluated by psychiatry. Baseline mentation is unclear.We'll clarify with his daughter wets his baseline. 5. New patchy left basilar atelectasis and/or infiltrate noted on chest x-ray. Likely this is atelectasis doubt pneumonia. Patient denies any cough or fever. no elevated white count. We'll order incentive spirometer.
--- NOTE | 2017-05-01 15:54 | P.PN ---
Subjective Progress Note Date: 05/01/17 This patient is a 86-year-old right-handed white male who was admitted to hospital with episode of near syncope and frequent falls. Patient also had mild sinus bradycardia and was evaluated by cardiology today. He is most likely having some degree of orthostatic hypotension or autonomic dysfunction. He continues to remain somewhat confused this morning and is sitting up in his chair at bedside. His speech is clear but he makes frequent remarks that are unrelated. He does have a sitter at bedside as he became more confused last night. It is unclear as to his normal baseline mentation. We're waiting further update from his daughter. Patient underwent computed tomography scan of the brain which revealed diffuse age-related cerebral atrophy and chronic small vessel ischemic changes. He also has a history of hallucinations and this may also be part of his mental status changes. We're waiting a consultation with psychiatry. Some of his symptoms are suggesting possibility of vestibular neuronitis. Quick head movements do cause him to feel more unsteady. He has been scheduled for EEG and we will await this testing to be done likely not until Wednesday. Overall he seems to be responsive and follows simple commands. We will continue close neurological follow-up. Objective - Vital Signs Vital signs: Vital Signs Temp 98.5 F 05/01/17 12:00 Pulse 93 05/01/17 12:00 Resp 19 05/01/17 12:00 BP 156/98 05/01/17 12:00 Pulse Ox 98 05/01/17 12:00 Intake & Output 04/30/17 05/01/17 05/01/17 18:59 06:59 18:59 Intake Total 600 Balance 600 Weight 83.915 kg 85 kg Intake: Oral 600 Other: Voiding Method Urinal Toilet # Voids 3 1 - Exam Physical examination: PHYSICAL EXAMINATION: Patient is resting comfortably in bed. VITAL SIGNS: Blood pressure is [156/98]. Heart rate is [93]. Respiration is [19] . Temperature is [98.5]. HEENT: Head is atraumatic, neck is supple, there were no carotid bruits. CHEST: Lungs are clear to auscultation and percussion. CARDIAC: S1, S2 normal rate and rhythm. There is no murmur. ABDOMEN: Soft and nontender. Bowel sounds are present. EXTREMITIES: There is no pedal edema. Peripheral pulses are present. Neurological examination: Patient is awake alert oriented 2. His memory and intellectual functions are impaired. Speech is clear. No focal motor deficit on examination. - Labs CBC & Chem 7: 05/01/17 05:34 05/01/17 05:34 Labs: Abnormal Lab Results - Last 24 Hours (Table) 05/01/17 05/01/17 Range/Units 05:34 05:34 RBC 3.88 L (4.30-5.90) m/uL Hgb 11.4 L (13.0-17.5) gm/dL Hct 35.8 L (39.0-53.0) % Total Protein 5.6 L (6.3-8.2) g/dL Albumin 3.1 L (3.5-5.0) g/dL HDL Cholesterol 36 L (40-60) mg/dL Assessment and Plan (1) Syncope and collapse Current Visit: Yes Status: Acute Code(s): R55 - SYNCOPE AND COLLAPSE SNOMED Code(s): 097597707 (2) Acute encephalopathy Current Visit: Yes Status: Acute Code(s): G93.40 - ENCEPHALOPATHY, UNSPECIFIED SNOMED Code(s): 3698272 (3) Sinus bradycardia Current Visit: Yes Status: Acute Code(s): R00.1 - BRADYCARDIA, UNSPECIFIED SNOMED Code(s): 43062305 (4) Vestibular neuronitis Current Visit: Yes Status: Acute Code(s): H81.20 - VESTIBULAR NEURONITIS, UNSPECIFIED EAR SNOMED Code(s): 243770518 Plan: This patient is 86-year-old male being evaluated for recent near syncopal episode and frequent falls. Computed tomography scan of the brain failed to reveal any acute stroke or hemorrhage. There was moderate degree of age related atrophy and chronic small vessel ischemic changes. Patient became quite confused last night and still remains somewhat disoriented. His speech is clear but he makes disconnected sentences. We are waiting further input from his daughter as to his normal baseline level of function at home. Patient is scheduled to have a EEG for further evaluation of near syncope. He is also awaiting a consultation from psychiatry as he is had history of hallucinations in the past. He was seen by cardiology today and is being monitored for orthostatic hypotension or autonomic dysfunction. Cardiology is made adjustments in his antihypertensive medications. We will continue to monitor his progress closely during this admission. His overall prognosis at this time remains guarded.
[2017-05-01] MEDS: QUEtiapine 25 MG TAB PO SCH (20:14)
[2017-05-01] MEDS: LORazepam 2 MG/ML INJ IV PRN (23:02)
[2017-05-02 03:36] LABS: Appearance,Urine Clear (Clear); Bilirubin,Urine Negative (Negative); Blood,Urine Negative (Negative); Color,Urine Light Yellow; Glucose,Urine (UA) Negative (Negative); Ketones,Urine Negative (Negative); Leukocyte Esterase,Urine Negative (Negative); Nitrite,Urine Negative (Negative); Protein,Urine Negative (Negative); Specific Gravity,Urine 1.009 (1.001-1.035); Urobilinogen,Urine <2.0 mg/dL (<2.0)
[2017-05-02 06:25] LABS: Basophils % (A) 0 %; Eosinophils # (A) 0.1 k/uL (0-0.7); Eosinophils % (A) 1 %; HGB 11.5 gm/dL (13.0-17.5); Lymphocytes % (A) 16 %; MCH 28.8 pg (25.0-35.0); MCHC 31.9 g/dL (31.0-37.0); MCV 90.1 fL (80.0-100.0); Mean Platelet Volume 7.5; Monocytes # (A) 0.4 k/uL (0-1.0); Monocytes % (A) 7 %; Neutrophils # (A) 4.7 k/uL (1.3-7.7); Neutrophils % (A) 73 %; Platelet Count 163 k/uL (150-450); RDW 13.5 % (11.5-15.5); WBC 6.4 k/uL (3.8-10.6)
[2017-05-02 06:39] LABS: ALT 41 U/L (21-72); AST 28 U/L (17-59); Albumin 3.2 g/dL (3.5-5.0); Alkaline Phosphatase 62 U/L (38-126); Anion Gap 9 mmol/L; Blood Urea Nitrogen 17 mg/dL (9-20); Calcium 9.2 mg/dL (8.4-10.2); Carbon Dioxide 25 mmol/L (22-30); Chloride 106 mmol/L (98-107); Glucose 97 mg/dL (74-99); Potassium 3.8 mmol/L (3.5-5.1); Sodium 140 mmol/L (137-145); Total Bilirubin 1.8 mg/dL (0.2-1.3); Total Protein 5.8 g/dL (6.3-8.2)
[2017-05-02] MEDS: ENOXAPARIN 40 MG/0.4 ML SYRINGE SQ SCH (08:53)
[2017-05-02] MEDS: POTASSIUM CHLORIDE ER 10 MEQ TAB.ER.PRT PO SCH (08:54)
[2017-05-02] MEDS: ATENOLOL 25 MG TAB PO SCH (08:54)
[2017-05-02] MEDS: VIT A,C & E-LUTEIN-MINERALS 1 EACH TAB PO SCH (08:54)
[2017-05-02] MEDS: FAMOTIDINE 20 MG TAB PO SCH (08:54)
[2017-05-02] MEDS: LEVOTHYROXINE 88 MCG TAB PO SCH (08:54)
[2017-05-02] MEDS: MULTIVITAMINS, THERA 1 EACH TAB PO SCH (08:54)
--- NOTE | 2017-05-02 09:00 | CONS ---
CONSULTATION DATE OF SERVICE: 05/01/2017. IDENTIFYING DATA: This patient is an 86-year-old who was admitted to the 6th floor with complaint of near syncope. HISTORY OF PRESENT ILLNESS: The patient has been seen by Neurology and has a diagnosis of syncope, encephalopathy, sinus bradycardia and vestibular neuronitis. The patient is found in his room. He is seated upright in a chair. He has a safety belt on, as well as a monitor. He is agitated on presentation, inquiring why I was sent and what I want from him. He clearly demonstrates confusion. He refers to me in circumstances that did not occur. He does not wish to speak with me. He attempts to call his family member on his phone while I attempted to interview him. He feels that his rights are violated in that he is in the chair with a safety belt on. He does have a food safety coordinator at bedside. I spoke to both his sitter and his current nurse. The patient has been more agitated today and demonstrates confusion. The patient's stepdaughter did arrive prior to me finishing. She states that they suspect the patient has been experiencing symptoms of neural cognitive disorder. She finds that typically he is not agitated, but he can be confused. They have concern about him residing alone and asked for assistance in looking for a more supportive environment for him. We discussed with his family possible etiologies of agitated behavior in this situation as it may be due to a progressive neural cognitive disorder versus a delirium. Either way, if behavior becomes agitated enough, we discussed possibly using the medication to ensure that he sleeps at night and control some agitation. PAST PSYCHIATRIC HISTORY: In reviewing the past consult from Dr. Farley in January, no prior psychiatric history. No suicide attempts. No psychotropics prescribed. PAST MEDICAL HISTORY: Hypertension, hypothyroidism, osteoarthritis, recent syncope. ALLERGIES: No known drug allergies. CURRENT MEDICATIONS: Aspirin 81 mg, Tenormin 25 mg daily, Pepcid 20 mg daily, levothyroxine 88 mcg daily, multivitamin, tramadol 50 mg every 6 hours as needed. CHEMICAL DEPENDENCY HISTORY: None reported. FAMILY PSYCHIATRIC HISTORY: Unknown. SOCIAL HISTORY: The patient is 86 years old. He has been 3 times. His of several years recently . He currently resides alone in his own home. 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 He has a high school education and served 2 years in the as he was drafted into the [employer]. MENTAL STATUS EXAM: The patient is an overweight male appearing his stated age. He is seated upright in a chair. He has a safety belt around his waist. He has a proximity monitor clip on his gown. He is wearing eyeglasses and he makes several attempts to try to use his phone during our conversation. He is alert. At no time did he seem lethargic. He is agitated. He does not cooperate with questioning. He makes statements involving me that are not true. He makes assumptions as to why I am there to speak with him. He conveys a sense of paranoia. He endorses no auditory hallucinations, but his family indicates that he has been experiencing auditory hallucinations. He is reporting no suicidal or homicidal ideation, intent, or plan. He is angered by that line of questioning. When asked for current location, he is not able to provide it. He states "this is supposed to be a condo, but it is not." With multiple choice cues he was able identify that we were in the hospital. He was able to name our current location in terms of city. No other orientation information is available at this time. Insight and judgment are poor. IMPRESSIONS: 1. Psychosis, unspecified. Rule out recent delirium, rule out symptoms of neural cognitive disorder. 2. Recent syncope, sinus bradycardia, vestibular neuronitis, hypertension, hypothyroidism, osteoarthritis. 3. Issues related to social environment due to psychiatric symptoms. PLAN: The patient will be started on Seroquel 25 mg at bedtime. We discussed risks and benefits of using this medication with his family. We are hoping this will allow him to appropriately sleep this evening and start to address symptoms of psychosis as well as agitated behavior. We will monitor for any orthostasis because of the medication or sedation. His vital signs were reviewed and appears he will tolerate the Seroquel fine. We will continue to follow patient while medically admitted. I agree with family that a more supportive environment needs to be sought for him versus him living independently. ASIF / DANKN: [id number] /
--- NOTE | 2017-05-02 13:08 | PN ---
PROGRESS NOTE Mr. Mendez is an 86-year-old male who presented with symptoms of unsteadiness and fall. It does not look like he had a full syncope. He has evidence of confusion. He has not had any episodes of tachy or bradyarrhythmia. No chest pain. He has no evidence of hypotension or syncope. His left ventricular systolic function was preserved on echocardiography. He was seen by a Dr. Milligan yesterday and was diagnosed with psychosis. He continues to be at this time on atenolol 25 mg daily, levothyroxine, potassium, and tramadol in addition to aspirin once a day. PHYSICAL EXAMINATION: Blood pressure 138/80 with a heart in the 80s. LUNGS: Clear. HEART: Regular rate and rhythm. S1, S2. No S3. No rub. ABDOMEN: Soft, nontender. EXTREMITIES: No significant edema. IMPRESSION: 1. Episode of dizziness could be orthostatic hypotension, stable. 2. History of hypertension, stable. 3. Probable psychosis. RECOMMENDATION: From the cardiac standpoint, I will continue current therapy. His renal function are stable and his thyroid function tests are stable. I see no indication for further cardiac workup at this point. We will see him on as needed basis. Please feel free to call us for any questions. MMODL / IJN: [id number] /
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
[2017-05-02] MEDS: LORazepam 2 MG/ML INJ IV PRN (19:08)
[2017-05-02] MEDS: QUEtiapine 25 MG TAB PO SCH (19:13)
[2017-05-03] MEDS: LORazepam 2 MG/ML INJ IV PRN ×2 (02:54→12:21)
[2017-05-03] MEDS: LEVOTHYROXINE 88 MCG TAB PO SCH (06:04)
[2017-05-03 06:44] LABS: Basophils % (A) 0 %; Eosinophils # (A) 0.1 k/uL (0-0.7); Eosinophils % (A) 2 %; HCT 37.7 % (39.0-53.0); HGB 12.3 gm/dL (13.0-17.5); Lymphocytes % (A) 14 %; MCH 29.5 pg (25.0-35.0); MCHC 32.7 g/dL (31.0-37.0); MCV 90.3 fL (80.0-100.0); Mean Platelet Volume 7.7; Monocytes # (A) 0.4 k/uL (0-1.0); Monocytes % (A) 6 %; Neutrophils # (A) 5.2 k/uL (1.3-7.7); Neutrophils % (A) 76 %; Platelet Count 152 k/uL (150-450); RBC 4.18 m/uL (4.30-5.90); RDW 13.6 % (11.5-15.5); WBC 6.9 k/uL (3.8-10.6)
[2017-05-03 06:52] LABS: ALT 41 U/L (21-72); AST 37 U/L (17-59); Albumin 3.4 g/dL (3.5-5.0); Alkaline Phosphatase 67 U/L (38-126); Anion Gap 9 mmol/L; Blood Urea Nitrogen 17 mg/dL (9-20); Calcium 9.4 mg/dL (8.4-10.2); Carbon Dioxide 26 mmol/L (22-30); Chloride 103 mmol/L (98-107); Glucose 91 mg/dL (74-99); Sodium 138 mmol/L (137-145); Total Bilirubin 2.3 mg/dL (0.2-1.3); Total Protein 6.1 g/dL (6.3-8.2)
[2017-05-03] MEDS: VIT A,C & E-LUTEIN-MINERALS 1 EACH TAB PO SCH (09:55)
[2017-05-03] MEDS: FAMOTIDINE 20 MG TAB PO SCH (09:55)
[2017-05-03] MEDS: ASPIRIN 81 MG PO SCH (09:55)
[2017-05-03] MEDS: POTASSIUM CHLORIDE ER 10 MEQ TAB.ER.PRT PO SCH (09:55)
[2017-05-03] MEDS: ATENOLOL 25 MG TAB PO SCH (09:55)
[2017-05-03] MEDS: ENOXAPARIN 40 MG/0.4 ML SYRINGE SQ SCH (09:55)
[2017-05-03] MEDS: MULTIVITAMINS, THERA 1 EACH TAB PO SCH (09:56)
--- NOTE | 2017-05-03 15:33 | P.PN ---
Subjective Progress Note Date: 05/03/17 This is a 86-year-old male with a known past medical history of hypertension and hypothyroidism. Patient presents to the hospital after having frequent falls starting prior to [place]. He had a fall again this morning where he was walking downstairs and on the last step he continued just to lean forward and he fell hitting the left side of his head on the hardwood floor. He felt that he did not pass out. However, there are concerns that there was a syncopal episode involved per ER report. He is been admitted the hospital for further syncope evaluation. He does report having dizziness upon changing positions from going from a sitting to standing position. He denies any chest pain or shortness of breath. Denies any nausea or vomiting. Denies any fevers chills or sweats, cough, bowel movement changes or urinary symptoms. Computed tomography scan of the brain reveals no acute changes. Chest x-ray showed a new patchy left basilar atelectasis versus infiltrate. Left hip x-ray completed which was negative for any fractures. EKG had shown sinus rhythm with sinus arrhythmia and occasional PVCs. Patient has been admitted to the telemetry for audiology has been consulted. Echo and carotid have been ordered. Patient does still report having issues with hallucinations. He was hospitalized in January for hallucinations and evaluated by psychiatry at that time. 05/03/2017 patient is been having hallucinations as well as easily being agitated. He is requiring the IV Ativan. He has been seen by psychiatry and they have added Seroquel. However, patient is still hallucinating and having episodes of agitation requiring bedside sitter which was ordered for today. Cardiology has cleared patient. Patient be transferred to regular medical floor. Objective - Vital Signs Vital signs: Vital Signs Temp 97.7 F 05/03/17 12:00 Pulse 75 05/03/17 12:00 Resp 18 05/03/17 12:00 BP 103/56 05/03/17 12:00 Pulse Ox 99 05/03/17 12:00 Intake & Output 05/02/17 05/03/17 05/03/17 18:59 06:59 18:59 Intake Total 480 120 Output Total 400 Balance 80 120 Weight 85.5 kg Intake: Oral 480 120 Output: Urine 400 Other: Voiding Method Urinal Diaper Diaper # Voids 1 1 2 # Bowel Movements 1 - Exam Head normocephalic Neck supple Lungs clear to auscultation bilaterally no wheezing or crackles Heart regular rate and rhythm S1-S2, no rub or gallop Abdomen is soft nontender nondistended positive bowel sounds no hepatosplenomegaly Extremities no edema Neuro Patient is sleepy from the Ativan but arousable and able to answer questions - Labs CBC & Chem 7: 05/03/17 05:51 05/03/17 05:51 Labs: Abnormal Lab Results - Last 24 Hours (Table) 05/03/17 05/03/17 Range/Units 05:51 05:51 RBC 4.18 L (4.30-5.90) m/uL Hgb 12.3 L (13.0-17.5) gm/dL Hct 37.7 L (39.0-53.0) % Total Bilirubin 2.3 H (0.2-1.3) mg/dL Total Protein 6.1 L (6.3-8.2) g/dL Albumin 3.4 L (3.5-5.0) g/dL Assessment and Plan Assessment: 1. Pre-syncopal episode with frequent falls: Computed tomography scan of the brain showed no acute changes. Did reveal moderate diffuse age-related cerebral atrophy and chronic small vessel ischemic changes redemonstrated. EKG shows sinus rhythm with sinus arrhythmia and occasional PVCs. Echocardiogram showed preserved EF with no significant valvular abnormalities. Carotid Doppler with no significant hemodynamic stenosis. Patient was seen and evaluated by cardiology and neurology. PT/OT consultation requested. Cardiology has signed off 2. Essential hypertension resume atenolol 3. Hypothyroidism resume Synthroid 4. Psychosis: With Hallucinations with agitation. Patient seen by psychiatry they have added Seroquel. However, patient is still requiring IV Ativan during the day. Bedside sitter was ordered. We'll have psychiatry we'll evaluate patient 5. Atelectasis: Continue incentive vomiting. New patchy left basilar atelectasis and/or infiltrate noted on chest x-ray. Likely this is atelectasis doubt pneumonia. Patient denies any cough or fever. no elevated white count. 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 Sinus bradycardia cardiology has decreased the dose of his beta jaskaran. Heart rate has improved. TSH level normal Prophylaxis Pepcid and DVT prophylaxis Lovenox I performed an examination of the patient and discussed their management with the physician Scientific Specialist. I have reviewed the Physician Scientific Specialist's notes and agree with the documented findings and plan of care
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
[2017-05-03] MEDS: QUEtiapine 25 MG TAB PO SCH (19:39)
[2017-05-04] MEDS: LEVOTHYROXINE 88 MCG TAB PO SCH (06:10)
[2017-05-04] MEDS: VIT A,C & E-LUTEIN-MINERALS 1 EACH TAB PO SCH (07:43)
[2017-05-04] MEDS: ATENOLOL 25 MG TAB PO SCH (07:44)
[2017-05-04] MEDS: FAMOTIDINE 20 MG TAB PO SCH (07:44)
[2017-05-04] MEDS: ENOXAPARIN 40 MG/0.4 ML SYRINGE SQ SCH (07:44)
[2017-05-04] MEDS: POTASSIUM CHLORIDE ER 10 MEQ TAB.ER.PRT PO SCH (07:44)
[2017-05-04 07:53] LABS: Basophils % (A) 0 %; Eosinophils # (A) 0.1 k/uL (0-0.7); Eosinophils % (A) 1 %; HCT 36.3 % (39.0-53.0); Lymphocytes # (A) 0.9 k/uL (1.0-4.8); Lymphocytes % (A) 13 %; MCH 29.6 pg (25.0-35.0); MCV 89.8 fL (80.0-100.0); Mean Platelet Volume 8.8; Monocytes # (A) 0.5 k/uL (0-1.0); Monocytes % (A) 7 %; Neutrophils # (A) 4.9 k/uL (1.3-7.7); Neutrophils % (A) 76 %; Platelet Count 174 k/uL (150-450); RBC 4.04 m/uL (4.30-5.90); WBC 6.5 k/uL (3.8-10.6)
[2017-05-04 08:46] LABS: AST 32 U/L (17-59); Albumin 3.3 g/dL (3.5-5.0); Alkaline Phosphatase 70 U/L (38-126); Anion Gap 11 mmol/L; Blood Urea Nitrogen 22 mg/dL (9-20); Calcium 9.3 mg/dL (8.4-10.2); Carbon Dioxide 26 mmol/L (22-30); Chloride 104 mmol/L (98-107); Glucose 107 mg/dL (74-99); Potassium 3.9 mmol/L (3.5-5.1); Sodium 141 mmol/L (137-145); Total Bilirubin 3.4 mg/dL (0.2-1.3); Total Protein 5.9 g/dL (6.3-8.2)
[2017-05-04 08:47] LABS: ALT 44 U/L (21-72)
[2017-05-04] MEDS: MULTIVITAMINS, THERA 1 EACH TAB PO SCH (12:22)
--- NOTE | 2017-05-04 14:07 | P.PN ---
Subjective Progress Note Date: 05/04/17 This is a 86-year-old male with a known past medical history of hypertension and hypothyroidism. Patient presents to the hospital after having frequent falls starting prior to [place]. He had a fall again this morning where he was walking downstairs and on the last step he continued just to lean forward and he fell hitting the left side of his head on the hardwood floor. He felt that he did not pass out. However, there are concerns that there was a syncopal episode involved per ER report. He is been admitted the hospital for further syncope evaluation. He does report having dizziness upon changing positions from going from a sitting to standing position. He denies any chest pain or shortness of breath. Denies any nausea or vomiting. Denies any fevers chills or sweats, cough, bowel movement changes or urinary symptoms. Computed tomography scan of the brain reveals no acute changes. Chest x-ray showed a new patchy left basilar atelectasis versus infiltrate. Left hip x-ray completed which was negative for any fractures. EKG had shown sinus rhythm with sinus arrhythmia and occasional PVCs. Patient has been admitted to the telemetry for audiology has been consulted. Echo and carotid have been ordered. Patient does still report having issues with hallucinations. He was hospitalized in January for hallucinations and evaluated by psychiatry at that time. 05/03/2017 patient is been having hallucinations as well as easily being agitated. He is requiring the IV Ativan. He has been seen by psychiatry and they have added Seroquel. However, patient is still hallucinating and having episodes of agitation requiring bedside sitter which was ordered for today. Cardiology has cleared patient. Patient be transferred to regular medical floor. 05/04/2017 patient is sleepy but arousable. Patient did require Ativan yesterday. Per nursing staff patient slept through the night. Awaiting psychiatric evaluation. No new complaints Objective - Vital Signs Vital signs: Vital Signs Temp 97.4 F L 05/04/17 07:00 Pulse 90 05/04/17 07:00 Resp 16 05/04/17 07:00 BP 137/74 05/04/17 07:00 Pulse Ox 99 05/04/17 07:00 Intake & Output 05/03/17 05/04/17 05/04/17 18:59 06:59 18:59 Intake Total 240 0 Balance 240 0 Intake: Oral 240 0 Other: Voiding Method Diaper Diaper Diaper # Voids 1 2 1 # Bowel Movements 0 - Exam Head normocephalic Neck supple Lungs clear to auscultation bilaterally no wheezing or crackles Heart regular rate and rhythm S1-S2, no rub or gallop Abdomen is soft nontender nondistended positive bowel sounds no hepatosplenomegaly Extremities no edema Neuro Patient is sleepy but arousable. Able to answer questions. - Labs CBC & Chem 7: 05/04/17 07:41 05/04/17 07:41 Labs: Abnormal Lab Results - Last 24 Hours (Table) 05/04/17 05/04/17 Range/Units 07:41 07:41 RBC 4.04 L (4.30-5.90) m/uL Hgb 12.0 L (13.0-17.5) gm/dL Hct 36.3 L (39.0-53.0) % Lymphocytes # 0.9 L (1.0-4.8) k/uL BUN 22 H (9-20) mg/dL Glucose 107 H (74-99) mg/dL Total Bilirubin 3.4 H (0.2-1.3) mg/dL Total Protein 5.9 L (6.3-8.2) g/dL Albumin 3.3 L (3.5-5.0) g/dL Assessment and Plan Assessment: 1. Pre-syncopal episode with frequent falls: Computed tomography scan of the brain showed no acute changes. Did reveal moderate diffuse age-related cerebral atrophy and chronic small vessel ischemic changes redemonstrated. EKG shows sinus rhythm with sinus arrhythmia and occasional PVCs. Echocardiogram showed preserved EF with no significant valvular abnormalities. Carotid Doppler with no significant hemodynamic stenosis. Patient was seen and evaluated by cardiology and neurology. PT/OT consultation requested. Cardiology has signed off 2. Essential hypertension resume atenolol 3. Hypothyroidism resume Synthroid 4. Psychosis: With Hallucinations with agitation. Patient seen by psychiatry they have added Seroquel. However, patient is still requiring IV Ativan during the day. Patient no longer requiring bedside sitter. Awaiting psychiatric reevaluation 5. Atelectasis: Continue incentive vomiting. New patchy left basilar atelectasis and/or infiltrate noted on chest x-ray. Likely this is atelectasis doubt pneumonia. Patient denies any cough or fever. no elevated white count. 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 Sinus bradycardia cardiology has decreased the dose of his beta jaskaran. Heart rate has improved. TSH level normal 8. 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 Total bilirubin 3.4. LFTs normal Prophylaxis Pepcid and DVT prophylaxis Lovenox When patient is stable. The plan is to discharge patient to ECF I performed an examination of the patient and discussed their management with the physician Composite Bond Worker. I have reviewed the Physician Composite Bond Worker's notes and agree with the documented findings and plan of care
[2017-05-04] MEDS: LORazepam 2 MG/ML INJ IV PRN (17:08)
--- NOTE | 2017-05-04 19:39 | P.PN ---
Subjective Progress Note Date: 05/04/17 This patient is a 86-year-old male who was admitted to hospital for syncope at home following a fall. He underwent initial computed tomography scan of the brain which failed to reveal any evidence of acute changes. He underwent a routine EEG today which was reviewed. His EEG reveals moderate slowing consistent with a diffuse encephalopathy. This evening the patient is very confused and disoriented in bed. He is requiring a sitter at bedside. He is not able to follow commands. He was to be stiff evaluated by psychiatry as he has been having hallucinations. He still remains quite agitated and has been started on Seroquel and still requiring Ativan occasionally throughout the day. Patient will require possible ECF placement due to his poor medical debility. His increasing confusion this evening suggests possibility of sundowners syndrome. We will await further reevaluation by psychiatry. His overall prognosis at this time remains very guarded. Objective - Vital Signs Vital signs: Vital Signs Temp 98.0 F 05/04/17 14:47 Pulse 97 05/04/17 14:47 Resp 18 05/04/17 14:47 BP 109/62 05/04/17 14:47 Pulse Ox 97 05/04/17 14:47 Intake & Output 05/04/17 05/04/17 05/05/17 06:59 18:59 06:59 Intake Total 0 Balance 0 Intake: Oral 0 Other: Voiding Method Diaper Diaper # Voids 2 1 - Exam Physical examination: PHYSICAL EXAMINATION: Patient is resting comfortably in bed. VITAL SIGNS: Blood pressure is [110/62]. Heart rate is [97]. Respiration is [18] . Temperature is [98.0]. HEENT: Head is atraumatic, neck is supple, there were no carotid bruits. CHEST: Lungs are clear to auscultation and percussion. CARDIAC: S1, S2 normal rate and rhythm. There is no murmur. ABDOMEN: Soft and nontender. Bowel sounds are present. EXTREMITIES: There is no pedal edema. Peripheral pulses are present. Neurological examination: Patient is awake alert oriented 2. Patient appears to be more confused this evening than yesterday. Patient is still is intermittently confused and is tangential in his thinking. His memory and intellectual functions are impaired. Speech is clear. No focal motor deficit on examination. - Labs CBC & Chem 7: 05/04/17 07:41 05/04/17 07:41 Labs: Abnormal Lab Results - Last 24 Hours (Table) 05/04/17 05/04/17 Range/Units 07:41 07:41 RBC 4.04 L (4.30-5.90) m/uL Hgb 12.0 L (13.0-17.5) gm/dL Hct 36.3 L (39.0-53.0) % Lymphocytes # 0.9 L (1.0-4.8) k/uL BUN 22 H (9-20) mg/dL Glucose 107 H (74-99) mg/dL Total Bilirubin 3.4 H (0.2-1.3) mg/dL Total Protein 5.9 L (6.3-8.2) g/dL Albumin 3.3 L (3.5-5.0) g/dL Assessment and Plan (1) Syncope and collapse Current Visit: Yes Status: Acute Code(s): R55 - SYNCOPE AND COLLAPSE SNOMED Code(s): 330725892 (2) Acute encephalopathy Current Visit: Yes Status: Acute Code(s): G93.40 - ENCEPHALOPATHY, UNSPECIFIED SNOMED Code(s): 3649109 (3) Sinus bradycardia Current Visit: Yes Status: Acute Code(s): R00.1 - BRADYCARDIA, UNSPECIFIED SNOMED Code(s): 83018388 (4) Vestibular neuronitis Current Visit: Yes Status: Acute Code(s): H81.20 - VESTIBULAR NEURONITIS, UNSPECIFIED EAR SNOMED Code(s): 816029938 Plan: This patient is a 86-year-old male showing decline in overall mental status after his being admitted for syncope and fall. He underwent routine EEG today which was reviewed and is moderately slow consistent with a diffuse encephalopathy. He appears to be more confused and disoriented this evening. Psychiatry has been re-consulted for further evaluation. He was started on cervical at bedtime. He is requiring a sitter at this time. Yesterday he had more agitation and hallucinations. We will need to await further recommendations from psychiatry. Patient likely will require placement at the time of discharge. We will continue to monitor his progress very closely. His overall prognosis at this time remains very guarded.
--- NOTE | 2017-05-04 20:02 | EEG ---
ELECTROENCEPHALOGRAM REPORT DATE OF EE05/04/2017. REFERRING PHYSICIAN: Dr. Hinds. CONSULTING INTERPRETING PHYSICIAN: Dr. Mary Alarcon M.D. ELECTROENCEPHALOGRAPHIC EXAMINATION REPORT: INDICATION FOR EXAMINATION: This patient is an 86-year-old male being evaluated for syncope and collapse. The patient also with increasing confusion and agitation. AGE: [age]. EEG FINDINGS: A routine 21 channel awake digital EEG recording was accomplished utilizing the 10-20 international system with bipolar and referential montages. The background activity in the most alert resting state consists of a low to medium amplitude, poorly developed and poorly sustained 6 Hz activity over the posterior head regions. This posterior rhythm attenuates minimally to eye opening. There is a small amount of low amplitude 18-20 Hz beta activity seen maximally over the anterior head regions. Muscle and movement artifact was observed on a few occasions during the tracing. Hyperventilation was not performed. Photic stimulation at flash frequencies of 2-30 Hz produced a minimal occipital driving response. On one occasion, a sharp wave discharge was noted. IMPRESSION: This EEG is moderately abnormal in a diffuse fashion due to slowing of the EEG background. The EEG failed to reveal any focal, lateralized, or epileptiform abnormalities. If clinically indicated a followup EEG is recommended. Clinical correlation is recommended. MMODL / IJN: [id number] /
[2017-05-04] MEDS: QUEtiapine 25 MG TAB PO SCH (20:34)
--- NOTE | 2017-05-04 21:59 | CONS ---
CONSULTATION DATE OF SERVICE: 05/04/2017. PURPOSE FOR CONSULTATION: Evaluate for altered mental status. HISTORY OF PRESENT ILLNESS: The patient is an 86-year-old male who was admitted due to having frequent falls that started up prior to . He was having problems maintaining balance. He had an apparent syncopal episode. CT scan was negative. The EKG was positive for a sinus arrhythmia and occasional PVC. Nursing noted that early in his stay, he was quite confused and was not able to respond to any orienting questions. He was restless and would resist care. When I saw him, he was doing better, though still quite restless, especially when it came to personal care. When I talked to the patient, he was able to tell me it was 2018. He had trouble coming up with the month, and seemed to not understand the question. He did say he was in the hospital, and that he was in [place]. When asked who the President was, he said "I like to say 'Grant Mcdaniel' ." On previous days, he had received some PRN medications for agitation, though today he has been calmer overall. Sleep has been fair. Generally his mood was fairly even, other than when needing to be attended by staff. He did make comments spontaneously, though most of his thoughts were disorganized. Neurologic evaluation has not revealed any specific findings relating to his falls. ASSESSMENT : This 86 yo male is diagnosed with Delirium, with moderate confusion that seems to be improving. I will start the patient on Zyprexa 2.5mg AM, 5mg HS to reduce delusions and restless behavior related to his delirium. Staff understand to call me with any concerns related to behavioral issues. I will continue to follow. MMODL / IJN: [id number] / [facility]ree
[2017-05-05 07:39] LABS: Basophils % (A) 0 %; Eosinophils % (A) 1 %; HCT 36.7 % (39.0-53.0); HGB 12.1 gm/dL (13.0-17.5); Lymphocytes % (A) 17 %; MCH 29.3 pg (25.0-35.0); MCV 88.7 fL (80.0-100.0); Mean Platelet Volume 7.5; Monocytes # (A) 0.5 k/uL (0-1.0); Monocytes % (A) 8 %; Neutrophils # (A) 4.1 k/uL (1.3-7.7); Neutrophils % (A) 71 %; Platelet Count 197 k/uL (150-450); RBC 4.13 m/uL (4.30-5.90); RDW 12.7 % (11.5-15.5); WBC 5.7 k/uL (3.8-10.6)
[2017-05-05 08:19] LABS: ALT 40 U/L (21-72); AST 35 U/L (17-59); Albumin 3.2 g/dL (3.5-5.0); Alkaline Phosphatase 67 U/L (38-126); Anion Gap 10 mmol/L; Blood Urea Nitrogen 22 mg/dL (9-20); Calcium 9.3 mg/dL (8.4-10.2); Carbon Dioxide 26 mmol/L (22-30); Chloride 106 mmol/L (98-107); Glucose 92 mg/dL (74-99); Potassium 3.9 mmol/L (3.5-5.1); Sodium 142 mmol/L (137-145); Total Bilirubin 4.3 mg/dL (0.2-1.3); Total Protein 5.9 g/dL (6.3-8.2)
[2017-05-05] MEDS: ENOXAPARIN 40 MG/0.4 ML SYRINGE SQ SCH (08:32)
[2017-05-05] MEDS: FAMOTIDINE 20 MG TAB PO SCH (08:32)
[2017-05-05] MEDS: POTASSIUM CHLORIDE ER 10 MEQ TAB.ER.PRT PO SCH (08:32)
[2017-05-05] MEDS: QUEtiapine 25 MG TAB PO SCH ×2 (08:32→19:50)
[2017-05-05] MEDS: VIT A,C & E-LUTEIN-MINERALS 1 EACH TAB PO SCH (08:32)
[2017-05-05] MEDS: ASPIRIN 81 MG PO SCH (08:33)
[2017-05-05] MEDS: ATENOLOL 25 MG TAB PO SCH (08:33)
[2017-05-05] MEDS: LEVOTHYROXINE 88 MCG TAB PO SCH (08:33)
--- NOTE | 2017-05-05 11:14 | P.PN ---
Subjective Progress Note Date: 05/05/17 This is a 86-year-old male with a known past medical history of hypertension and hypothyroidism. Patient presents to the hospital after having frequent falls starting prior to [place]. He had a fall again this morning where he was walking downstairs and on the last step he continued just to lean forward and he fell hitting the left side of his head on the hardwood floor. He felt that he did not pass out. However, there are concerns that there was a syncopal episode involved per ER report. He is been admitted the hospital for further syncope evaluation. He does report having dizziness upon changing positions from going from a sitting to standing position. He denies any chest pain or shortness of breath. Denies any nausea or vomiting. Denies any fevers chills or sweats, cough, bowel movement changes or urinary symptoms. Computed tomography scan of the brain reveals no acute changes. Chest x-ray showed a new patchy left basilar atelectasis versus infiltrate. Left hip x-ray completed which was negative for any fractures. EKG had shown sinus rhythm with sinus arrhythmia and occasional PVCs. Patient has been admitted to the telemetry for audiology has been consulted. Echo and carotid have been ordered. Patient does still report having issues with hallucinations. He was hospitalized in January for hallucinations and evaluated by psychiatry at that time. 05/03/2017 patient is been having hallucinations as well as easily being agitated. He is requiring the IV Ativan. He has been seen by psychiatry and they have added Seroquel. However, patient is still hallucinating and having episodes of agitation requiring bedside sitter which was ordered for today. Cardiology has cleared patient. Patient be transferred to regular medical floor. 05/04/2017 patient is sleepy but arousable. Patient did require Ativan yesterday. Per nursing staff patient slept through the night. Awaiting psychiatric evaluation. No new complaints On 05/05/2017 patient is sleepy he is arousable and answering questions appropriately but returns to sleep instantly earlier this morning he was trying to pull his IV and was slightly agitated. Objective - Vital Signs Vital signs: Vital Signs Temp 97.8 F 05/05/17 07:00 Pulse 89 05/05/17 07:00 Resp 18 05/05/17 07:00 BP 126/60 05/05/17 07:00 Pulse Ox 95 05/05/17 07:00 Intake & Output 05/04/17 05/05/17 05/05/17 18:59 06:59 18:59 Other: Voiding Method Diaper Diaper Diaper # Voids 1 2 - Exam Head normocephalic Neck supple Lungs clear to auscultation bilaterally no wheezing or crackles Heart regular rate and rhythm S1-S2, no rub or gallop Abdomen is soft nontender nondistended positive bowel sounds no hepatosplenomegaly Extremities no edema Neuro Patient is sleepy but arousable. Able to answer questions. - Labs CBC & Chem 7: 05/05/17 07:14 05/05/17 07:14 Labs: Abnormal Lab Results - Last 24 Hours (Table) 05/05/17 05/05/17 Range/Units 07:14 07:14 RBC 4.13 L (4.30-5.90) m/uL Hgb 12.1 L (13.0-17.5) gm/dL Hct 36.7 L (39.0-53.0) % BUN 22 H (9-20) mg/dL Total Bilirubin 4.3 H (0.2-1.3) mg/dL Total Protein 5.9 L (6.3-8.2) g/dL Albumin 3.2 L (3.5-5.0) g/dL Assessment and Plan Plan: 1. Pre-syncopal episode with frequent falls: Computed tomography scan of the brain showed no acute changes. Did reveal moderate diffuse age-related cerebral atrophy and chronic small vessel ischemic changes redemonstrated. EKG shows sinus rhythm with sinus arrhythmia and occasional PVCs. Echocardiogram showed preserved EF with no significant valvular abnormalities. Carotid Doppler with no significant hemodynamic stenosis. Patient was seen and evaluated by cardiology and neurology. PT/OT consultation requested. Cardiology has signed off. 2. Essential hypertension resume atenolol 3. Hypothyroidism resume Synthroid 4. Psychosis: With Hallucinations with agitation. Patient seen by psychiatry they have added Seroquel. However, patient is still requiring IV Ativan during the day. Patient no longer requiring bedside sitter. Awaiting psychiatric reevaluation, dose of Seroquel was increased yesterday today patient is somnolent will back off on the dose of Seroquel to 25 mg in the morning and 50 in the evening will cancel the normal dose at this time and continue to monitor. Patient is no longer able to live at home on his home he will require [facility] placement at this time. 5. Atelectasis: Continue incentive vomiting. New patchy left basilar atelectasis and/or infiltrate noted on chest x-ray. Likely this is atelectasis doubt pneumonia. Patient denies any cough or fever. no elevated white count. 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 Sinus bradycardia cardiology has decreased the dose of his beta jaskaran. Heart rate has improved. TSH level normal 8. 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 Total bilirubin 4.3. LFTs normal, will check ammonia level to rule out any liver involvement in his abnormal mental status Prophylaxis Pepcid and DVT prophylaxis Lovenox When patient is stable. The plan is to discharge patient to ECF
[2017-05-05] MEDS ORDERED: QUEtiapine 25 MG TAB PO SCH (12:00)
[2017-05-05] MEDS: MULTIVITAMINS, THERA 1 EACH TAB PO SCH (12:16)
[2017-05-05] MEDS: LORazepam 2 MG/ML INJ IV PRN (13:05)
--- NOTE | 2017-05-05 16:09 | P.PN ---
Subjective Progress Note Date: 05/05/17 This patient is a 86-year-old male who was admitted to hospital for syncope at home following a fall. He underwent initial computed tomography scan of the brain which failed to reveal any evidence of acute changes. He underwent a routine EEG today which was reviewed. His EEG reveals moderate slowing consistent with a diffuse encephalopathy. This evening the patient is very confused and disoriented in bed. He is requiring a sitter at bedside. He is not able to follow commands. He was to be stiff evaluated by psychiatry as he has been having hallucinations. He still remains quite agitated and has been started on Seroquel and still requiring Ativan occasionally throughout the day. His dosage of cervical was readjusted by Dr. Hinds today. He was showing signs of excessive sedation. Patient will require possible ECF placement due to his poor medical debility. His increasing confusion this evening suggests possibility of sundowners syndrome. We will await further reevaluation by psychiatry. Patient does seem to be less agitated today but still requiring a sitter at bedside. His overall prognosis at this time remains very guarded. Objective - Vital Signs Vital signs: Vital Signs Temp 97.1 F L 05/05/17 15:00 Pulse 91 05/05/17 15:00 Resp 20 05/05/17 15:00 BP 122/66 05/05/17 15:00 Pulse Ox 95 05/05/17 15:00 Intake & Output 05/04/17 05/05/17 05/05/17 18:59 06:59 18:59 Other: Voiding Method Diaper Diaper Diaper # Voids 1 2 2 - Exam Physical examination: PHYSICAL EXAMINATION: Patient is resting comfortably in bed. VITAL SIGNS: Blood pressure is [126/60]. Heart rate is [89]. Respiration is [18] . Temperature is [97.8]. HEENT: Head is atraumatic, neck is supple, there were no carotid bruits. CHEST: Lungs are clear to auscultation and percussion. CARDIAC: S1, S2 normal rate and rhythm. There is no murmur. ABDOMEN: Soft and nontender. Bowel sounds are present. EXTREMITIES: There is no pedal edema. Peripheral pulses are present. Neurological examination: Patient is awake alert oriented 2. Patient appears to be more confused this evening than yesterday. Patient is still is intermittently confused and is tangential in his thinking. His memory and intellectual functions are impaired. Speech is clear. No focal motor deficit on examination. - Labs CBC & Chem 7: 05/05/17 07:14 05/05/17 07:14 Labs: Abnormal Lab Results - Last 24 Hours (Table) 05/05/17 05/05/17 Range/Units 07:14 07:14 RBC 4.13 L (4.30-5.90) m/uL Hgb 12.1 L (13.0-17.5) gm/dL Hct 36.7 L (39.0-53.0) % BUN 22 H (9-20) mg/dL Total Bilirubin 4.3 H (0.2-1.3) mg/dL Total Protein 5.9 L (6.3-8.2) g/dL Albumin 3.2 L (3.5-5.0) g/dL Assessment and Plan (1) Syncope and collapse Current Visit: Yes Status: Acute Code(s): R55 - SYNCOPE AND COLLAPSE SNOMED Code(s): 485090700 (2) Acute encephalopathy Current Visit: Yes Status: Acute Code(s): G93.40 - ENCEPHALOPATHY, UNSPECIFIED SNOMED Code(s): 8325229 (3) Sinus bradycardia Current Visit: Yes Status: Acute Code(s): R00.1 - BRADYCARDIA, UNSPECIFIED SNOMED Code(s): 93350298 (4) Vestibular neuronitis Current Visit: Yes Status: Acute Code(s): H81.20 - VESTIBULAR NEURONITIS, UNSPECIFIED EAR SNOMED Code(s): 989535511 Plan: Patient is a 86-year-old male being evaluated for confusion and recent weakness and syncope. And went routine EEG yesterday which revealed diffuse slowing. He is being treated by psychiatry for acute delirium and psychosis. He was started on Seroquel and the dosage has been adjusted as he was showing signs of sedation. He still remains somewhat confused. He was likely need senior care placement at the time of discharge. Neurologically he has no further changes in his exam. He still remains quite confused. We will continue to follow recommendations from Dr. Hinds in terms of discharge planning. Psychiatry is also monitoring the patient and we will have them reevaluate him regarding his overall symptoms. Prognosis at this time remains guarded.
[2017-05-06 08:31] LABS: Basophils % (A) 0 %; Eosinophils # (A) 0.1 k/uL (0-0.7); Eosinophils % (A) 2 %; HCT 36.3 % (39.0-53.0); HGB 12.3 gm/dL (13.0-17.5); Lymphocytes # (A) 0.7 k/uL (1.0-4.8); Lymphocytes % (A) 14 %; MCV 88.4 fL (80.0-100.0); Mean Platelet Volume 7.4; Monocytes # (A) 0.3 k/uL (0-1.0); Monocytes % (A) 6 %; Neutrophils # (A) 3.6 k/uL (1.3-7.7); Neutrophils % (A) 75 %; Platelet Count 214 k/uL (150-450); RDW 12.8 % (11.5-15.5); WBC 4.8 k/uL (3.8-10.6)
[2017-05-06 08:45] LABS: ALT 43 U/L (21-72); AST 37 U/L (17-59); Albumin 3.3 g/dL (3.5-5.0); Alkaline Phosphatase 73 U/L (38-126); Anion Gap 10 mmol/L; Blood Urea Nitrogen 22 mg/dL (9-20); Calcium 9.2 mg/dL (8.4-10.2); Carbon Dioxide 27 mmol/L (22-30); Chloride 107 mmol/L (98-107); Glucose 93 mg/dL (74-99); Potassium 3.7 mmol/L (3.5-5.1); Sodium 144 mmol/L (137-145); Total Bilirubin 4.3 mg/dL (0.2-1.3)
[2017-05-06] MEDS: ENOXAPARIN 40 MG/0.4 ML SYRINGE SQ SCH (08:59)
[2017-05-06] MEDS: POTASSIUM CHLORIDE ER 10 MEQ TAB.ER.PRT PO SCH (08:59)
[2017-05-06] MEDS: FAMOTIDINE 20 MG TAB PO SCH (08:59)
[2017-05-06] MEDS: MULTIVITAMINS, THERA 1 EACH TAB PO SCH (08:59)
[2017-05-06] MEDS: ATENOLOL 25 MG TAB PO SCH (08:59)
[2017-05-06] MEDS: QUEtiapine 25 MG TAB PO SCH (08:59)
[2017-05-06] MEDS: VIT A,C & E-LUTEIN-MINERALS 1 EACH TAB PO SCH (08:59)
[2017-05-06] MEDS: LEVOTHYROXINE 88 MCG TAB PO SCH (08:59)
[2017-05-06] MEDS ORDERED: OLANZapine 5 MG TAB PO SCH (14:15)
--- NOTE | 2017-05-06 15:24 | P.DS ---
Providers Date of admission: 04/30/17 14:09 Expected date of discharge: 05/06/17 Attending physician: Natalia Hinds Consults: 04/30/17 14:10 Consult Physician Routine Consulting Provider: Mary Alarcon Consult Reason/Comments: Syncope Do you want consulting provider notified?: Yes 04/30/17 14:26 Consult Physician Routine Consulting Provider: Gray Guerin Consult Reason/Comments: syncope Do you want consulting provider notified?: Yes 04/30/17 14:52 Consult Physician Routine Consulting Provider: Reji Zelaya Consult Reason/Comments: hallucinations Do you want consulting provider notified?: Yes Primary care physician: Natalia Guzman [facility] Course: Discharge diagnosis 1. Pre-syncopal episode with frequent falls: Computed tomography scan of the brain showed no acute changes. Did reveal moderate diffuse age-related cerebral atrophy and chronic small vessel ischemic changes redemonstrated. EKG shows sinus rhythm with sinus arrhythmia and occasional PVCs. Echocardiogram showed preserved EF with no significant valvular abnormalities. Carotid Doppler with no significant hemodynamic stenosis. Patient was seen and evaluated by cardiology and neurology. PT/OT consultation requested. Cardiology has signed off. 2. Essential hypertension resume atenolol 3. Hypothyroidism resume Synthroid 4. Psychosis: With Hallucinations with agitation. Patient seen by psychiatry they have added Seroquel. Patient evaluated by psychiatry seroquel dose has been adjusted to 25 mg in the morning and 50 mg in the evening due to somnolence. Patient is more awake today and alert and orientated to 3. 5. Atelectasis: Continue incentive vomiting. New patchy left basilar atelectasis and/or infiltrate noted on chest x-ray. Likely this is atelectasis doubt pneumonia. Patient denies any cough or fever. no elevated white count. 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 Sinus bradycardia cardiology has decreased the dose of his beta jaskaran. Heart rate has improved. TSH level normal 8. 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 Total bilirubin 4.3. LFTs normal, ammonia level normal Hospital course This is a 86-year-old male with a known past medical history of hypertension and hypothyroidism. Patient presents to the hospital after having frequent falls starting prior to [place]. He had a fall again this morning where he was walking downstairs and on the last step he continued just to lean forward and he fell hitting the left side of his head on the hardwood floor. He felt that he did not pass out. However, there are concerns that there was a syncopal episode involved per ER report. He is been admitted the hospital for further syncope evaluation. He does report having dizziness upon changing positions from going from a sitting to standing position. He denies any chest pain or shortness of breath. Denies any nausea or vomiting. Denies any fevers chills or sweats, cough, bowel movement changes or urinary symptoms. Computed tomography scan of the brain reveals no acute changes. Chest x-ray showed a new patchy left basilar atelectasis versus infiltrate. Left hip x-ray completed which was negative for any fractures. EKG had shown sinus rhythm with sinus arrhythmia and occasional PVCs. Patient has been admitted to the telemetry for audiology has been consulted. Echo and carotid have been ordered. Patient does still report having issues with hallucinations. He was hospitalized in January for hallucinations and evaluated by psychiatry at that time. Patient syncope workup was negative. Computed tomography scan of the brain showed no acute changes. Echo showed preserved EF. And carotid Doppler was negative. Cardiology and neurology had been following patient. They have signed off. Patient was having hallucinations and psychosis. Seen by psychiatry. They've added Seroquel. Initially dose was adjusted with increased. However, patient was very somnolent. Seroquel dose decreased yesterday to 20 5 in the morning and 50 mg in the evening. Patient is tolerating this better. He is sleepy at times but definite arousable has been working with physical therapy. And alert and orientated to 3. Patient will be [facility] to [facility] for further rehabilitation I performed an examination of the patient and discussed their management with the physician Otter Trawler Boatswain. I have reviewed the Physician Otter Trawler Boatswain's notes and agree with the documented findings and plan of care Patient Condition at Discharge: Stable Plan - Discharge Summary Discharge Rx Participant: No New Discharge Prescriptions: New QUEtiapine [SEROquel] 25 mg PO DAILY #30 tab QUEtiapine [SEROquel] 50 mg PO HS #30 tab Continue Potassium Chloride [Klor-Con 10] 10 meq PO DAILY Levothyroxine Sodium [Synthroid] 88 mcg PO DAILY Aspirin EC [Ecotrin Low Dose] 81 mg PO MOWEFR Atenolol [Tenormin] 75 mg PO DAILY Vit A/Vit C/Vit E/Zinc/Copper [ICAPS SOFTGEL] 1 cap PO DAILY Multivit-Min/FA/Lycopen/Lutein [Centrum Silver Tablet] 1 tab PO DAILY Discharge Medication List Aspirin EC [Ecotrin Low Dose] 81 mg PO MOWEFR 02/11/17 [History] Levothyroxine Sodium [Synthroid] 88 mcg PO DAILY 02/11/17 [History] Potassium Chloride [Klor-Con 10] 10 meq PO DAILY 02/11/17 [History] Atenolol [Tenormin] 75 mg PO DAILY 04/30/17 [History] Multivit-Min/FA/Lycopen/Lutein [Centrum Silver Tablet] 1 tab PO DAILY 04/30/17 [ History] Vit A/Vit C/Vit E/Zinc/Copper [ICAPS SOFTGEL] 1 cap PO DAILY 04/30/17 [History] QUEtiapine [SEROquel] 25 mg PO DAILY #30 tab 05/06/17 [Rx] QUEtiapine [SEROquel] 50 mg PO HS #30 tab 05/06/17 [Rx] Follow up Appointment(s)/Referral(s): Natalia Hinds MD [Primary Care Provider] - 1 Week Activity/Diet/Wound Care/Special Instructions: Diet: [place] thick liquids, Aspiration precautions, cardiac diet Activity: as tolerated [facility]charge Disposition: TRANSFER TO SNF/ECF
--- NOTE | 2017-05-06 17:49 | CONS ---
CONSULTATION DATE OF SERVICE: 05/06/2017. PURPOSE FOR CONSULTATION: Evaluate for altered mental status. INTERVAL HISTORY: Patient has been doing fair. He had a quiet evening last night. He has been sleeping fairly well. He seemed to be calm this morning, though nursing reports that in the early afternoon, he started getting quite restless and intense in his manner. He was disorganized in his thoughts. The nurse noted that in regards to cognitive function, he could respond appropriately to some orienting questions and not to others. He would say easily, it was 2017. When asked the month, he only said "2". He was uncertain where he was, though he said he knew he was in [place]. When I saw the patient, he was sitting in a chair. He had a cup of ice cream. He was moving his spoon about, though most of the time he moved the spoon more to his waist and down his leg rather than in the ice cream. He responded to questions though his thoughts were disorganized. He rambled some. He did appear to be significantly distressed. ASSESSMENT: I will give the patient a 1 time dose of Zyprexa 5 mg. I will discontinue Seroquel and start the patient on Zyprexa 2.5 mg in the morning, 5 mg at bedtime. My understanding is that the patient may be discharged soon to a care facility for further rehabilitation. It would be appropriate to continue Zyprexa with the possibility of a gradual taper. ASIF / HERLINDA: [id number] /
[2017-05-06] MEDS: OLANZapine 5 MG TAB PO SCH (21:07)
--- NOTE | 2017-05-06 22:21 | P.PN ---
Subjective Progress Note Date: 05/06/17 This patient is a 86-year-old male who was admitted to hospital for syncope at home following a fall. He underwent initial computed tomography scan of the brain which failed to reveal any evidence of acute changes. He underwent a routine EEG today which was reviewed. His EEG reveals moderate slowing consistent with a diffuse encephalopathy. This evening the patient is very confused and disoriented in bed. He is requiring a sitter at bedside. He is not able to follow commands. He was to be stiff evaluated by psychiatry as he has been having hallucinations. He still remains quite agitated and has been started on Seroquel by psychiatry for further treatment of his agitation. Patient was reevaluated by psychiatry today and they are recommending to discontinue his Seroquel and he is to be started on Zyprexa 2.5 mg in the morning and 5 mg at bedtime. Patient has a sitter at bedside. He still has episodes of intermittent confusion. He does not seem agitated. He is being considered for possible discharge to extended care facility and further rehabilitation Objective - Vital Signs Vital signs: Vital Signs Temp 97.9 F 05/06/17 14:47 Pulse 90 05/06/17 14:47 Resp 20 05/06/17 14:47 BP 115/63 05/06/17 14:47 Pulse Ox 92 L 05/06/17 14:47 Intake & Output 05/06/17 05/06/17 05/07/17 06:59 18:59 06:59 Intake Total 100 360 Balance 100 360 Intake: Oral 100 360 Other: Voiding Method Diaper Diaper Incontinent # Voids 1 2 - Exam Physical examination: PHYSICAL EXAMINATION: Patient is resting comfortably in bed. VITAL SIGNS: Blood pressure is [115/63]. Heart rate is [90]. Respiration is [20] . Temperature is [97.9]. HEENT: Head is atraumatic, neck is supple, there were no carotid bruits. CHEST: Lungs are clear to auscultation and percussion. CARDIAC: S1, S2 normal rate and rhythm. There is no murmur. ABDOMEN: Soft and nontender. Bowel sounds are present. EXTREMITIES: There is no pedal edema. Peripheral pulses are present. Neurological examination: Patient is awake alert oriented 2. Patient appears to be more confused this evening than yesterday. Patient is still is intermittently confused and is tangential in his thinking. His memory and intellectual functions are impaired. Speech is clear. No focal motor deficit on examination. - Labs CBC & Chem 7: 05/06/17 07:33 05/06/17 07:33 Labs: Abnormal Lab Results - Last 24 Hours (Table) 05/06/17 05/06/17 Range/Units 07:33 07:33 RBC 4.10 L (4.30-5.90) m/uL Hgb 12.3 L (13.0-17.5) gm/dL Hct 36.3 L (39.0-53.0) % Lymphocytes # 0.7 L (1.0-4.8) k/uL BUN 22 H (9-20) mg/dL Total Bilirubin 4.3 H (0.2-1.3) mg/dL Total Protein 6.0 L (6.3-8.2) g/dL Albumin 3.3 L (3.5-5.0) g/dL Assessment and Plan (1) Syncope and collapse Current Visit: Yes Status: Acute Code(s): R55 - SYNCOPE AND COLLAPSE SNOMED Code(s): 712396592 (2) Acute encephalopathy Current Visit: Yes Status: Acute Code(s): G93.40 - ENCEPHALOPATHY, UNSPECIFIED SNOMED Code(s): 2417803 (3) Sinus bradycardia Current Visit: Yes Status: Acute Code(s): R00.1 - BRADYCARDIA, UNSPECIFIED SNOMED Code(s): 57656415 (4) Vestibular neuronitis Current Visit: Yes Status: Acute Code(s): H81.20 - VESTIBULAR NEURONITIS, UNSPECIFIED EAR SNOMED Code(s): 527555894 Plan: This patient is a 86-year-old male with symptoms of confusion and agitation. He was seen by psychiatry today and has been taken off of Seroquel and started on Zyprexa for further treatment. Patient is being considered for placement into an extended care facility possibly tomorrow. Neurologically he has had no further syncopal episodes. Psychiatry is treating him for his agitation and confusion. We will continue to follow his progress closely during this admission.
[2017-05-07] MEDS: LEVOTHYROXINE 88 MCG TAB PO SCH (06:03)
[2017-05-07 07:38] LABS: Basophils % (A) 0 %; Eosinophils # (A) 0.1 k/uL (0-0.7); Eosinophils % (A) 2 %; HGB 12.2 gm/dL (13.0-17.5); Lymphocytes # (A) 1.2 k/uL (1.0-4.8); Lymphocytes % (A) 21 %; MCH 29.3 pg (25.0-35.0); MCHC 32.3 g/dL (31.0-37.0); MCV 90.8 fL (80.0-100.0); Mean Platelet Volume 8.2; Monocytes # (A) 0.4 k/uL (0-1.0); Monocytes % (A) 6 %; Neutrophils # (A) 3.9 k/uL (1.3-7.7); Neutrophils % (A) 68 %; Platelet Count 227 k/uL (150-450); RBC 4.18 m/uL (4.30-5.90); RDW 13.7 % (11.5-15.5); WBC 5.7 k/uL (3.8-10.6)
[2017-05-07 07:57] LABS: ALT 45 U/L (21-72); AST 40 U/L (17-59); Albumin 3.3 g/dL (3.5-5.0); Alkaline Phosphatase 75 U/L (38-126); Anion Gap 9 mmol/L; Blood Urea Nitrogen 29 mg/dL (9-20); Calcium 9.2 mg/dL (8.4-10.2); Carbon Dioxide 28 mmol/L (22-30); Chloride 108 mmol/L (98-107); Glucose 109 mg/dL (74-99); Potassium 3.7 mmol/L (3.5-5.1); Sodium 145 mmol/L (137-145); Total Bilirubin 3.9 mg/dL (0.2-1.3); Total Protein 6.1 g/dL (6.3-8.2)
[2017-05-07] MEDS: ENOXAPARIN 40 MG/0.4 ML SYRINGE SQ SCH (08:20)
[2017-05-07] MEDS: VIT A,C & E-LUTEIN-MINERALS 1 EACH TAB PO SCH (08:20)
[2017-05-07] MEDS: ATENOLOL 25 MG TAB PO SCH (08:20)
[2017-05-07] MEDS: ASPIRIN 81 MG PO SCH (08:20)
[2017-05-07] MEDS: POTASSIUM CHLORIDE ER 10 MEQ TAB.ER.PRT PO SCH (08:20)
[2017-05-07] MEDS: FAMOTIDINE 20 MG TAB PO SCH (08:20)
[2017-05-07] MEDS ORDERED: OLANZapine 2.5 MG TAB PO SCH (09:00)
[2017-05-07] MEDS: MULTIVITAMINS, THERA 1 EACH TAB PO SCH (12:18)
[2017-05-07 13:56] VITALS: BMI 25.5
[2017-05-07] MEDS ORDERED: OLANZapine 5 MG TAB PO ONE (14:45)
--- NOTE | 2017-05-07 15:55 | P.PN ---
Subjective Progress Note Date: 05/07/17 This is a 86-year-old male with a known past medical history of hypertension and hypothyroidism. Patient presents to the hospital after having frequent falls starting prior to [place]. He had a fall again this morning where he was walking downstairs and on the last step he continued just to lean forward and he fell hitting the left side of his head on the hardwood floor. He felt that he did not pass out. However, there are concerns that there was a syncopal episode involved per ER report. He is been admitted the hospital for further syncope evaluation. He does report having dizziness upon changing positions from going from a sitting to standing position. He denies any chest pain or shortness of breath. Denies any nausea or vomiting. Denies any fevers chills or sweats, cough, bowel movement changes or urinary symptoms. Computed tomography scan of the brain reveals no acute changes. Chest x-ray showed a new patchy left basilar atelectasis versus infiltrate. Left hip x-ray completed which was negative for any fractures. EKG had shown sinus rhythm with sinus arrhythmia and occasional PVCs. Patient has been admitted to the telemetry for audiology has been consulted. Echo and carotid have been ordered. Patient does still report having issues with hallucinations. He was hospitalized in January for hallucinations and evaluated by psychiatry at that time. 05/03/2017 patient is been having hallucinations as well as easily being agitated. He is requiring the IV Ativan. He has been seen by psychiatry and they have added Seroquel. However, patient is still hallucinating and having episodes of agitation requiring bedside sitter which was ordered for today. Cardiology has cleared patient. Patient be transferred to regular medical floor. 05/04/2017 patient is sleepy but arousable. Patient did require Ativan yesterday. Per nursing staff patient slept through the night. Awaiting psychiatric evaluation. No new complaints 05/07/2017 Patient is still having confusion. Psychiatry is following they have discontinued Seroquel and added Zyprexa. The Zyprexa was started yesterday. The zyprexa dosage adjusted per psychiatry Objective - Vital Signs Vital signs: Vital Signs Temp 98.2 F 05/07/17 07:00 Pulse 66 05/07/17 07:00 Resp 18 05/07/17 08:31 BP 142/67 05/07/17 07:00 Pulse Ox 95 05/07/17 08:54 Intake & Output 05/06/17 05/07/17 05/07/17 18:59 06:59 18:59 Intake Total 360 550 Balance 360 550 Weight 85.5 kg Intake: Oral 360 550 Other: Voiding Method Diaper Diaper Diaper Incontinent Incontinent Incontinent # Voids 2 4 - Exam Head normocephalic Neck supple Lungs clear to auscultation bilaterally no wheezing or crackles Heart regular rate and rhythm S1-S2, no rub or gallop Abdomen is soft nontender nondistended positive bowel sounds no hepatosplenomegaly Extremities no edema Neuro patient confused. Not making any sense while talking - Labs CBC & Chem 7: 05/07/17 07:15 05/07/17 07:15 Labs: Abnormal Lab Results - Last 24 Hours (Table) 05/07/17 05/07/17 Range/Units 07:15 07:15 RBC 4.18 L (4.30-5.90) m/uL Hgb 12.2 L (13.0-17.5) gm/dL Hct 38.0 L (39.0-53.0) % Chloride 108 H (98-107) mmol/L BUN 29 H (9-20) mg/dL Glucose 109 H (74-99) mg/dL Total Bilirubin 3.9 H (0.2-1.3) mg/dL Total Protein 6.1 L (6.3-8.2) g/dL Albumin 3.3 L (3.5-5.0) g/dL Assessment and Plan Assessment: 1. Pre-syncopal episode with frequent falls: May have been related to sinus bradycardia and significant bilateral lower extremity weakness that may be contributing to his falls. Computed tomography scan of the brain showed no acute changes. Did reveal moderate diffuse age-related cerebral atrophy and chronic small vessel ischemic changes redemonstrated. EKG shows sinus rhythm with sinus arrhythmia and occasional PVCs. Echocardiogram showed preserved EF with no significant valvular abnormalities. Carotid Doppler with no significant hemodynamic stenosis. Patient was seen and evaluated by cardiology and neurology. PT/OT consultation requested. Cardiology has signed off 2. Essential hypertension resume atenolol 3. Hypothyroidism resume Synthroid 4. Psychosis: With Hallucinations with agitation. Patient still having significant confusion. Patient followed closely by psychiatry. They have discontinued the Seroquel. And added Zyprexa yesterday. They further adjusted the Zyprexa dose today 5. Atelectasis: Continue incentive vomiting. New patchy left basilar atelectasis and/or infiltrate noted on chest x-ray. Likely this is atelectasis doubt pneumonia. Patient denies any cough or fever. no elevated white count. 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 Sinus bradycardia cardiology has decreased the dose of his beta jaskaran. Heart rate has improved. TSH level normal 8. 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 Total bilirubin 3.9. LFTs normal. Continue to monitor Prophylaxis Pepcid and DVT prophylaxis Lovenox Patient is not ready for discharge. He is still having confusion. We'll continue to monitor closely. Psychiatry is adjusting the Zyprexa dosage. We' ll monitor how he responds to this medication. I performed an examination of the patient and discussed their management with the physician Seal Skinner. I have reviewed the Physician Seal Skinner's notes and agree with the documented findings and plan of care
--- NOTE | 2017-05-07 16:37 | CONS ---
CONSULTATION DATE OF SERVICE: 05/07/2017. PURPOSE OF CONSULTATION: Evaluate for altered mental status. INTERVAL HISTORY: The patient has been doing fair. He had a quiet evening last night. Today he has been awake a fair amount of the day. He has had some periods where he seems to be doing fairly well where he is calm and relaxed. He still is fairly resistant to personal care. It is noted that there are times where he can start getting quite restless. He will try to climb out of bed. He will be resistant to staff trying to help him. He has had periods where he communicates a little more directly, though other times where he is completely disconnected and mostly just says nonsense things. When I saw him this afternoon he was restless. He was trying to get out of bed. Staff said that he has been struggling on and off like that all day. My understanding is that he may be discharged today to a care facility. At this point I will give the patient 5 mg of Zyprexa as a one-time dose. Currently he is on Zyprexa 2.5 mg in the morning, 5 mg at bedtime. I will increase that to 2.5 mg twice a day, morning and afternoon, and 5 mg at bedtime. For patients like Mr. Mendez, he might need to have his dose increased up to 5 mg 3 times a day. Usually in this dosing range he should get a reasonable response in terms of being able to be calmer, to have a little clearer thoughts and have better reaction to care and things going on around him. We do need to anticipate that he may have some difficulties going into a care facility, as the environment and people will be new to him, and that could cause some distress. The receiving facility just needs to be aware of that and may need to have some psychiatric followup if necessary. MMODL / IJN: [id number] /
--- NOTE | 2017-05-07 20:11 | P.PN ---
Subjective Progress Note Date: 05/07/17 This patient is a 86-year-old male initially admitted with history of frequent falls and presyncope. Does have some degree of generalized medical debility with bilateral lower extremity weakness. Patient continues to be quite confused with hallucinations. Psychiatry has seen the patient and recently discontinued Seroquel and is now started him on Zyprexa yesterday. His dosage is being adjusted by psychiatry. Patient still confused at times and disoriented. Computed tomography scan of the brain performed on admission revealed no acute changes. There was moderate degree of age related atrophy. Patient is being considered for discharge once he is more stable and not as confused. We will continue to monitor his progress closely and his routine EEG was diffusely slow and this may need to be repeated early next week depending on his response. His EEG is consistent with a diffuse encephalopathy. Psychiatry is following the patient closely. His overall prognosis at this time remains guarded. Patient still remains confused and is not yet ready for discharge. We will continue to follow his progress closely during this admission. Objective - Vital Signs Vital signs: Vital Signs Temp 97.9 F 05/07/17 15:00 Pulse 76 05/07/17 15:00 Resp 18 05/07/17 15:00 BP 130/72 05/07/17 15:00 Pulse Ox 96 05/07/17 15:00 Intake & Output 05/06/17 05/07/17 05/07/17 18:59 06:59 18:59 Intake Total 360 550 Balance 360 550 Weight 85.5 kg Intake: Oral 360 550 Other: Voiding Method Diaper Diaper Diaper Incontinent Incontinent Incontinent # Voids 2 4 - Exam Physical examination: PHYSICAL EXAMINATION: Patient is resting comfortably in bed. VITAL SIGNS: Blood pressure is [130/72]. Heart rate is [76]. Respiration is [18] . Temperature is [97.9]. HEENT: Head is atraumatic, neck is supple, there were no carotid bruits. CHEST: Lungs are clear to auscultation and percussion. CARDIAC: S1, S2 normal rate and rhythm. There is no murmur. ABDOMEN: Soft and nontender. Bowel sounds are present. EXTREMITIES: There is no pedal edema. Peripheral pulses are present. Neurological examination: Patient is awake alert oriented 2. Patient appears to be more confused this evening than yesterday. Patient is still is intermittently confused and is tangential in his thinking. His memory and intellectual functions are impaired. Speech is clear. No focal motor deficit on examination. - Labs CBC & Chem 7: 05/07/17 07:15 05/07/17 07:15 Labs: Abnormal Lab Results - Last 24 Hours (Table) 05/07/17 05/07/17 Range/Units 07:15 07:15 RBC 4.18 L (4.30-5.90) m/uL Hgb 12.2 L (13.0-17.5) gm/dL Hct 38.0 L (39.0-53.0) % Chloride 108 H (98-107) mmol/L BUN 29 H (9-20) mg/dL Glucose 109 H (74-99) mg/dL Total Bilirubin 3.9 H (0.2-1.3) mg/dL Total Protein 6.1 L (6.3-8.2) g/dL Albumin 3.3 L (3.5-5.0) g/dL Assessment and Plan (1) Syncope and collapse Current Visit: Yes Status: Acute Code(s): R55 - SYNCOPE AND COLLAPSE SNOMED Code(s): 233997193 (2) Acute encephalopathy Current Visit: Yes Status: Acute Code(s): G93.40 - ENCEPHALOPATHY, UNSPECIFIED SNOMED Code(s): 5790007 (3) Sinus bradycardia Current Visit: Yes Status: Acute Code(s): R00.1 - BRADYCARDIA, UNSPECIFIED SNOMED Code(s): 15813995 (4) Vestibular neuronitis Current Visit: Yes Status: Acute Code(s): H81.20 - VESTIBULAR NEURONITIS, UNSPECIFIED EAR SNOMED Code(s): 573367478 Plan: This patient is a 86-year-old male being evaluated for multiple falls and generalized weakness. Patient also developed symptoms of psychosis and is currently being followed by psychiatry. He was taken off of Seroquel by psychiatry and is currently on Zyprexa. His dosage is being adjusted. Patient still not ready for discharge due to his confusion. His workup thus far including computed tomography scan of the brain and carotid Doppler Wednesday failed to reveal any acute changes. He does have moderate degree of cortical atrophy on the computed tomography scan of the brain. We will need to see his response to the Zyprexa over the next few days. Psychiatry is following the patient closely. He is awaiting stabilization of this condition for possible discharge to ECF. His overall prognosis at this time remains guarded.
[2017-05-07] MEDS: OLANZapine 5 MG TAB PO SCH (20:16)
[2017-05-08] MEDS: LEVOTHYROXINE 88 MCG TAB PO SCH ×2 (06:07→09:23)
[2017-05-08 07:40] LABS: Basophils % (A) 0 %; Eosinophils # (A) 0.1 k/uL (0-0.7); Eosinophils % (A) 1 %; HCT 43.5 % (39.0-53.0); HGB 13.4 gm/dL (13.0-17.5); Hypochromasia Slight; Lymphocytes % (A) 28 %; MCH 28.6 pg (25.0-35.0); MCHC 30.8 g/dL (31.0-37.0); MCV 92.9 fL (80.0-100.0); Monocytes # (A) 0.3 k/uL (0-1.0); Monocytes % (A) 5 %; Neutrophils # (A) 4.7 k/uL (1.3-7.7); Neutrophils % (A) 64 %; Platelet Count 294 k/uL (150-450); RBC 4.68 m/uL (4.30-5.90); RDW 13.5 % (11.5-15.5); WBC 7.3 k/uL (3.8-10.6)
[2017-05-08 07:48] LABS: ALT 50 U/L (21-72); AST 44 U/L (17-59); Albumin 3.7 g/dL (3.5-5.0); Alkaline Phosphatase 82 U/L (38-126); Anion Gap 14 mmol/L; Blood Urea Nitrogen 23 mg/dL (9-20); Calcium 9.4 mg/dL (8.4-10.2); Carbon Dioxide 28 mmol/L (22-30); Chloride 105 mmol/L (98-107); Glucose 97 mg/dL (74-99); Potassium 3.5 mmol/L (3.5-5.1); Sodium 147 mmol/L (137-145); Total Protein 6.9 g/dL (6.3-8.2)
[2017-05-08] MEDS: FAMOTIDINE 20 MG TAB PO SCH (09:24)
[2017-05-08] MEDS: ENOXAPARIN 40 MG/0.4 ML SYRINGE SQ SCH (09:24)
[2017-05-08] MEDS: POTASSIUM CHLORIDE ER 10 MEQ TAB.ER.PRT PO SCH (09:24)
[2017-05-08] MEDS: ATENOLOL 25 MG TAB PO SCH (09:24)
[2017-05-08] MEDS: VIT A,C & E-LUTEIN-MINERALS 1 EACH TAB PO SCH (09:24)
[2017-05-08] MEDS: OLANZapine 2.5 MG TAB PO SCH ×2 (09:24→13:18)
[2017-05-08] MEDS: MULTIVITAMINS, THERA 1 EACH TAB PO SCH (11:20)
[2017-05-08] MEDS: OLANZapine 5 MG TAB PO SCH (20:44)
[2017-05-09] MEDS: LEVOTHYROXINE 88 MCG TAB PO SCH (06:05)
[2017-05-09 07:34] LABS: ALT 53 U/L (21-72); AST 38 U/L (17-59); Albumin 3.4 g/dL (3.5-5.0); Alkaline Phosphatase 78 U/L (38-126); Anion Gap 12 mmol/L; Blood Urea Nitrogen 36 mg/dL (9-20); Calcium 9.6 mg/dL (8.4-10.2); Carbon Dioxide 27 mmol/L (22-30); Chloride 112 mmol/L (98-107); Glucose 138 mg/dL (74-99); Potassium 4.2 mmol/L (3.5-5.1); Sodium 151 mmol/L (137-145); Total Bilirubin 2.7 mg/dL (0.2-1.3); Total Protein 6.2 g/dL (6.3-8.2)
[2017-05-09 07:37] LABS: Basophils % (A) 0 %; Eosinophils % (A) 0 %; HCT 40.9 % (39.0-53.0); HGB 13.3 gm/dL (13.0-17.5); Lymphocytes # (A) 0.9 k/uL (1.0-4.8); Lymphocytes % (A) 9 %; MCH 29.6 pg (25.0-35.0); MCHC 32.4 g/dL (31.0-37.0); MCV 91.2 fL (80.0-100.0); Mean Platelet Volume 7.2; Monocytes # (A) 0.5 k/uL (0-1.0); Monocytes % (A) 5 %; Neutrophils # (A) 8.4 k/uL (1.3-7.7); Neutrophils % (A) 85 %; Platelet Count 260 k/uL (150-450); RBC 4.49 m/uL (4.30-5.90); RDW 12.8 % (11.5-15.5)
[2017-05-09] MEDS: OLANZapine 2.5 MG TAB PO SCH ×2 (09:22→16:18)
[2017-05-09] MEDS: VIT A,C & E-LUTEIN-MINERALS 1 EACH TAB PO SCH (09:22)
[2017-05-09] MEDS: FAMOTIDINE 20 MG TAB PO SCH (09:22)
[2017-05-09] MEDS: ENOXAPARIN 40 MG/0.4 ML SYRINGE SQ SCH (09:22)
[2017-05-09] MEDS: ATENOLOL 25 MG TAB PO SCH (09:22)
[2017-05-09] MEDS: POTASSIUM CHLORIDE ER 10 MEQ TAB.ER.PRT PO SCH (09:23)
[2017-05-09] MEDS: MULTIVITAMINS, THERA 1 EACH TAB PO SCH (13:51)
--- NOTE | 2017-05-09 14:09 | P.PN ---
Subjective Progress Note Date: 05/09/17 This is a 86-year-old male with a known past medical history of hypertension and hypothyroidism. Patient presents to the hospital after having frequent falls starting prior to . He had a fall again this morning where he was walking downstairs and on the last step he continued just to lean forward and he fell hitting the left side of his head on the hardwood floor. He felt that he did not pass out. However, there are concerns that there was a syncopal episode involved per ER report. He is been admitted the hospital for further syncope evaluation. He does report having dizziness upon changing positions from going from a sitting to standing position. He denies any chest pain or shortness of breath. Denies any nausea or vomiting. Denies any fevers chills or sweats, cough, bowel movement changes or urinary symptoms. Computed tomography scan of the brain reveals no acute changes. Chest x-ray showed a new patchy left basilar atelectasis versus infiltrate. Left hip x-ray completed which was negative for any fractures. EKG had shown sinus rhythm with sinus arrhythmia and occasional PVCs. Patient has been admitted to the telemetry for audiology has been consulted. Echo and carotid have been ordered. Patient does still report having issues with hallucinations. He was hospitalized in January for hallucinations and evaluated by psychiatry at that time. 05/03/2017 patient is been having hallucinations as well as easily being agitated. He is requiring the IV Ativan. He has been seen by psychiatry and they have added Seroquel. However, patient is still hallucinating and having episodes of agitation requiring bedside sitter which was ordered for today. Cardiology has cleared patient. Patient be transferred to regular medical floor. 05/04/2017 patient is sleepy but arousable. Patient did require Ativan yesterday. Per nursing staff patient slept through the night. Awaiting psychiatric evaluation. No new complaints On 05/05/2017 patient is sleepy he is arousable and answering questions appropriately but returns to sleep instantly earlier this morning he was trying to pull his IV and was slightly agitated. on 05/08/2017 Patient is still having confusion. Psychiatry is following they have discontinued Seroquel and added Zyprexa. The Zyprexa was started on . The zyprexa dosage adjusted per psychiatry Otherwise, No new complaints On 05/09/17 patient is doing worse he more confused and agitated, he is refusing all medications, has very poor oral intake, his Na is up to 151 BUN is up to 36 Objective - Vital Signs Vital signs: Vital Signs Temp 98.3 F 05/09/17 07:00 Pulse 71 05/09/17 07:00 Resp 16 05/09/17 07:00 BP 134/63 05/09/17 07:00 Pulse Ox 96 05/09/17 07:00 Intake & Output 05/08/17 05/09/17 05/09/17 18:59 06:59 18:59 Intake Total 400 Balance 400 Weight 85.5 kg Intake: Oral 400 Other: Voiding Method Diaper Diaper Diaper Incontinent Incontinent Incontinent # Voids 2 1 - Exam Head normocephalic Neck supple Lungs clear to auscultation bilaterally no wheezing or crackles Heart regular rate and rhythm S1-S2, no rub or gallop Abdomen is soft nontender nondistended positive bowel sounds no hepatosplenomegaly Extremities no edema Neuro Patient is sleepy but arousable. Able to answer questions. gets agitated easily - Labs CBC & Chem 7: 05/09/17 07:05 05/09/17 07:05 Labs: Abnormal Lab Results - Last 24 Hours (Table) 05/09/17 05/09/17 Range/Units 07:05 07:05 Neutrophils # 8.4 H (1.3-7.7) k/uL Lymphocytes # 0.9 L (1.0-4.8) k/uL Sodium 151 H (137-145) mmol/L Chloride 112 H (98-107) mmol/L BUN 36 H (9-20) mg/dL Glucose 138 H (74-99) mg/dL Total Bilirubin 2.7 H (0.2-1.3) mg/dL Total Protein 6.2 L (6.3-8.2) g/dL Albumin 3.4 L (3.5-5.0) g/dL Assessment and Plan Plan: 1. Pre-syncopal episode with frequent falls: Computed tomography scan of the brain showed no acute changes. Did reveal moderate diffuse age-related cerebral atrophy and chronic small vessel ischemic changes redemonstrated. EKG shows sinus rhythm with sinus arrhythmia and occasional PVCs. Echocardiogram showed preserved EF with no significant valvular abnormalities. Carotid Doppler with no significant hemodynamic stenosis. Patient was seen and evaluated by cardiology and neurology. PT/OT consultation requested. Cardiology has signed off. 2. Essential hypertension resume atenolol 3. Hypothyroidism resume Synthroid 4. Psychosis: With Hallucinations with agitation. Patient seen by psychiatry they have added Seroquel. Then was switched to Zyprexa however he is still very confused and occasionally agitated his condition has worsened significantly since admission 5. Atelectasis: Continue incentive vomiting. New patchy left basilar atelectasis and/or infiltrate noted on chest x-ray. Likely this is atelectasis doubt pneumonia. Patient denies any cough or fever. no elevated white count. 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 Sinus bradycardia cardiology has decreased the dose of his beta jaskaran. Heart rate has improved. TSH level normal 8. 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 Total bilirubin down to 2.7 LFTs normal, ammonia level is normal 9. Poor oral intake with dehydration and hypernatremia at this time will add IV fluid with D5/ 0.45 at 75 mL an hour Nurse will call psychiatrist again to assess if changing his psychiatry medication will help improve his condition Prophylaxis Pepcid and DVT prophylaxis Lovenox When patient is stable. The plan is to discharge patient to ECF
[2017-05-09] MEDS: DEXTROSE 5%-0.45% NACL 1,000 ML IV SCH (16:18)
[2017-05-09] MEDS ORDERED: OLANZapine 5 MG TAB PO STA (16:32)
--- NOTE | 2017-05-09 17:13 | CONS ---
CONSULTATION DATE OF SERVICE: 05/09/2017. PURPOSE FOR CONSULTATION: Evaluate for altered mental status. INTERVAL HISTORY: The patient has continued to have restlessness and confusion. He can be resistant to personal care. He can be somewhat combative, though not to a significant degree. He continues to be quite confused. Nursing staff expressed some concern that he might have more confusion than on admission. However, reviewing Dr. Milligan's psychiatric consultation from 05/01 suggests that he may be at about the same level of mental status changes. My understanding is that the family is aware of his current situation and is supportive of placement. Before coming into the hospital he had been living on his own. When I saw him, he was somewhat restless. He gave me a little eye contact. He mumbled different things though it is hard to understand what he was saying. He did not appear to be significantly distressed. At this point, I will increase his Zyprexa to 5 mg 3 times a day. We will continue to monitor for his behavior issues. MMDIDIER / DANKN: [id number] /
[2017-05-09] MEDS: OLANZapine 5 MG TAB PO SCH (19:29)
--- NOTE | 2017-05-09 22:00 | P.PN ---
Subjective Progress Note Date: 05/09/17 This patient is a 86-year-old male with past medical history of hypertension and hypothyroidism. He was admitted to Hospital after having frequent falls and near syncope. He had undergone an initial computed tomography scan of the brain on admission which failed to reveal any acute changes. Patient was seen by psychiatry as he is had symptoms of increase in agitation and combativeness. He has been started initially by psychiatry on Seroquel for management of his agitation and hallucinations. He did undergo routine EEG which was diffusely slow. Patient was reevaluated by psychiatry today for his acute psychosis. He was switched to Zyprexa and his current dose is 5 mg Zyprexa 3 times a day. Patient still remains very confused and disoriented. His speech appears to be much more slurred and dysphasic today. He was seen by Dr. Hinds earlier today was noted worsening of his confusion and his agitation. We are recommending a stat computed tomography scan of the brain to be done this evening. We will also get a follow-up EEG tomorrow. We will have psychiatry reevaluate the patient tomorrow as he is not showing any significant improvement in his overall mental status. His overall prognosis remains very guarded. We will continue to follow him closely during this admission. Nursing staff have been advised that the patient should go for a stat computed tomography scan this evening. They will contact me if there is any cortical findings on the CAT scan. His overall prognosis at this time remains very guarded. Objective - Vital Signs Vital signs: Vital Signs Temp 98.3 F 05/09/17 07:00 Pulse 71 05/09/17 07:00 Resp 16 05/09/17 07:00 BP 134/63 05/09/17 07:00 Pulse Ox 96 05/09/17 07:00 Intake & Output 05/09/17 05/09/17 05/10/17 06:59 18:59 06:59 Other: Voiding Method Diaper Diaper Incontinent Incontinent # Voids 2 1 - Exam Physical examination: PHYSICAL EXAMINATION: Patient is resting comfortably in bed. He does not require restraints in bed this evening. He still remains very confused and disoriented. VITAL SIGNS: Blood pressure is [134/63]. Heart rate is [71]. Respiration is [16] . Temperature is [98.3]. HEENT: Head is atraumatic, neck is supple, there were no carotid bruits. CHEST: Lungs are clear to auscultation and percussion. CARDIAC: S1, S2 normal rate and rhythm. There is no murmur. ABDOMEN: Soft and nontender. Bowel sounds are present. EXTREMITIES: There is no pedal edema. Peripheral pulses are present. Neurological examination: Patient is awake alert oriented 2. Patient appears to be more confused this evening than yesterday. Patient is still is intermittently confused and is tangential in his thinking. His memory and intellectual functions are impaired. Speech is much more dysphasic today. No focal motor deficit on examination. - Labs CBC & Chem 7: 05/09/17 07:05 05/09/17 07:05 Labs: Abnormal Lab Results - Last 24 Hours (Table) 05/09/17 05/09/17 Range/Units 07:05 07:05 Neutrophils # 8.4 H (1.3-7.7) k/uL Lymphocytes # 0.9 L (1.0-4.8) k/uL Sodium 151 H (137-145) mmol/L Chloride 112 H (98-107) mmol/L BUN 36 H (9-20) mg/dL Glucose 138 H (74-99) mg/dL Total Bilirubin 2.7 H (0.2-1.3) mg/dL Total Protein 6.2 L (6.3-8.2) g/dL Albumin 3.4 L (3.5-5.0) g/dL Assessment and Plan (1) Syncope and collapse Current Visit: Yes Status: Acute Code(s): R55 - SYNCOPE AND COLLAPSE SNOMED Code(s): 799314656 (2) Acute encephalopathy Current Visit: Yes Status: Acute Code(s): G93.40 - ENCEPHALOPATHY, UNSPECIFIED SNOMED Code(s): 4064568 (3) Sinus bradycardia Current Visit: Yes Status: Acute Code(s): R00.1 - BRADYCARDIA, UNSPECIFIED SNOMED Code(s): 72617833 (4) Vestibular neuronitis Current Visit: Yes Status: Acute Code(s): H81.20 - VESTIBULAR NEURONITIS, UNSPECIFIED EAR SNOMED Code(s): 613814481 Plan: This patient is a 86-year-old male who was initially admitted to Hospital with presyncope and frequent falls. Patient has been seen by psychiatry for treatment of acute psychosis. He is currently on Zyprexa as prescribed by psychiatry 5 mg 3 times a day. He still remains very disoriented. His speech this evening is much more dysphasic. We are recommending a stat computed tomography scan of the brain to be done this evening. We'll also obtain a repeat EEG tomorrow for further evaluation. This patient clearly showing signs of acute mental status changes. He is showing worsening of his underlying psychosis. We will have psychiatry reevaluate him tomorrow. His overall prognosis at this time remains very guarded.
--- NOTE | 2017-05-09 22:42 | CT ---
EXAMINATION TYPE: CT brain wo con DATE OF EXAM: 05/09/2017 COMPARISON: NONE HISTORY: AMS CT DLP: 1167.70 mGycm Automated exposure control for dose reduction was used. FINDINGS: There is cerebral cortical atrophy. There is no mass effect nor midline shift. There is no sign of in tracranial hemorrhage. The calvarium is intact. There is minimal mucosal thickening in the right maxi llary sinus. IMPRESSION: CEREBRAL ATROPHY. NO ACUTE ABNORMALITY. NO CHANGE.
[2017-05-10] MEDS: MULTIVITAMINS, THERA 1 EACH TAB PO SCH (07:34)
[2017-05-10] MEDS: VIT A,C & E-LUTEIN-MINERALS 1 EACH TAB PO SCH (07:34)
[2017-05-10] MEDS: ENOXAPARIN 40 MG/0.4 ML SYRINGE SQ SCH (07:34)
[2017-05-10] MEDS: LEVOTHYROXINE 88 MCG TAB PO SCH (07:34)
[2017-05-10 07:39] LABS: Basophils % (A) 0 %; Eosinophils # (A) 0.2 k/uL (0-0.7); Eosinophils % (A) 2 %; HGB 12.6 gm/dL (13.0-17.5); Lymphocytes # (A) 1.2 k/uL (1.0-4.8); Lymphocytes % (A) 14 %; MCH 29.7 pg (25.0-35.0); MCHC 32.5 g/dL (31.0-37.0); MCV 91.5 fL (80.0-100.0); Mean Platelet Volume 7.5; Monocytes # (A) 0.5 k/uL (0-1.0); Monocytes % (A) 6 %; Neutrophils # (A) 6.6 k/uL (1.3-7.7); Neutrophils % (A) 76 %; Platelet Count 248 k/uL (150-450); RBC 4.26 m/uL (4.30-5.90); RDW 12.7 % (11.5-15.5); WBC 8.6 k/uL (3.8-10.6)
[2017-05-10 07:59] LABS: ALT 48 U/L (21-72); AST 39 U/L (17-59); Alkaline Phosphatase 73 U/L (38-126); Anion Gap 9 mmol/L; Blood Urea Nitrogen 27 mg/dL (9-20); Calcium 9.1 mg/dL (8.4-10.2); Carbon Dioxide 29 mmol/L (22-30); Chloride 113 mmol/L (98-107); Glucose 116 mg/dL (74-99); Potassium 3.7 mmol/L (3.5-5.1); Sodium 151 mmol/L (137-145); Total Bilirubin 2.1 mg/dL (0.2-1.3); Total Protein 5.8 g/dL (6.3-8.2)
[2017-05-10 08:10] LABS: Glucose,Whole Blood 88 mg/dL (75-99)
[2017-05-10] MEDS: ASPIRIN 81 MG PO SCH (08:17)
[2017-05-10] MEDS: ATENOLOL 25 MG TAB PO SCH (08:17)
[2017-05-10] MEDS: DEXTROSE 5%-0.45% NACL 1,000 ML IV SCH ×2 (08:17→18:49)
[2017-05-10] MEDS: FAMOTIDINE 20 MG TAB PO SCH (08:18)
[2017-05-10] MEDS: OLANZapine 5 MG TAB PO SCH ×3 (08:18→22:44)
[2017-05-10] MEDS: POTASSIUM CHLORIDE ER 10 MEQ TAB.ER.PRT PO SCH (08:18)
--- NOTE | 2017-05-10 11:56 | P.PN ---
Subjective Progress Note Date: 05/10/17 This is a 86-year-old male with a known past medical history of hypertension and hypothyroidism. Patient presents to the hospital after having frequent falls starting prior to [place]. He had a fall again this morning where he was walking downstairs and on the last step he continued just to lean forward and he fell hitting the left side of his head on the hardwood floor. He felt that he did not pass out. However, there are concerns that there was a syncopal episode involved per ER report. He is been admitted the hospital for further syncope evaluation. He does report having dizziness upon changing positions from going from a sitting to standing position. He denies any chest pain or shortness of breath. Denies any nausea or vomiting. Denies any fevers chills or sweats, cough, bowel movement changes or urinary symptoms. Computed tomography scan of the brain reveals no acute changes. Chest x-ray showed a new patchy left basilar atelectasis versus infiltrate. Left hip x-ray completed which was negative for any fractures. EKG had shown sinus rhythm with sinus arrhythmia and occasional PVCs. Patient has been admitted to the telemetry for audiology has been consulted. Echo and carotid have been ordered. Patient does still report having issues with hallucinations. He was hospitalized in January for hallucinations and evaluated by psychiatry at that time. 05/03/2017 patient is been having hallucinations as well as easily being agitated. He is requiring the IV Ativan. He has been seen by psychiatry and they have added Seroquel. However, patient is still hallucinating and having episodes of agitation requiring bedside sitter which was ordered for today. Cardiology has cleared patient. Patient be transferred to regular medical floor. 05/04/2017 patient is sleepy but arousable. Patient did require Ativan yesterday. Per nursing staff patient slept through the night. Awaiting psychiatric evaluation. No new complaints 05/07/2017 Patient is still having confusion. Psychiatry is following they have discontinued Seroquel and added Zyprexa. The Zyprexa was started yesterday. The zyprexa dosage adjusted per psychiatry 05/10/2017 patient is still very confused with some aggressive behavior. Psychiatry had adjusted the Zyprexa to 5 mg 3 times a day yesterday. Neurology ordered a computed tomography scan of the brain showing cerebral atrophy with no acute changes. This morning patient ate breakfast without any signs of choking. But later he coughed and coughed up eggs. Concerns about possible aspiration. Chest x-ray and speech therapy evaluation was ordered for swallow evaluation Objective - Vital Signs Vital signs: Vital Signs Temp 98.2 F 05/10/17 07:00 Pulse 67 05/10/17 07:00 Resp 18 05/10/17 07:00 BP 147/65 05/10/17 07:00 Pulse Ox 96 05/10/17 07:00 Intake & Output 05/09/17 05/10/17 05/10/17 18:59 06:59 18:59 Intake Total 450 Balance 450 Weight 85.5 kg Intake: Intake, IV Titration 450 Amount Dextrose 5%-0.45% NaCl 1, 450 000 ml @ 75 mls/hr IV . [id number] [facility] Rx#:[id number] Other: Voiding Method Diaper Diaper Diaper Incontinent Incontinent Incontinent # Voids 1 2 - Exam Head normocephalic Neck supple Lungs clear to auscultation bilaterally no wheezing or crackles Heart regular rate and rhythm S1-S2, no rub or gallop Abdomen is soft nontender nondistended positive bowel sounds no hepatosplenomegaly Extremities no edema Neuro patient confused. Not making any sense while talking - Labs CBC & Chem 7: 05/10/17 07:17 05/10/17 07:17 Labs: Abnormal Lab Results - Last 24 Hours (Table) 05/10/17 05/10/17 Range/Units 07:17 07:17 RBC 4.26 L (4.30-5.90) m/uL Hgb 12.6 L (13.0-17.5) gm/dL Sodium 151 H (137-145) mmol/L Chloride 113 H (98-107) mmol/L BUN 27 H (9-20) mg/dL Glucose 116 H (74-99) mg/dL Total Bilirubin 2.1 H (0.2-1.3) mg/dL Total Protein 5.8 L (6.3-8.2) g/dL Albumin 3.0 L (3.5-5.0) g/dL Assessment and Plan Assessment: 1. Pre-syncopal episode with frequent falls: May have been related to sinus bradycardia and significant bilateral lower extremity weakness that may be contributing to his falls. Computed tomography scan of the brain showed no acute changes. Did reveal moderate diffuse age-related cerebral atrophy and chronic small vessel ischemic changes redemonstrated. EKG shows sinus rhythm with sinus arrhythmia and occasional PVCs. Echocardiogram showed preserved EF with no significant valvular abnormalities. Carotid Doppler with no significant hemodynamic stenosis. Patient was seen and evaluated by cardiology and neurology. PT/OT consultation requested. Cardiology has signed off 2. Essential hypertension resume atenolol 3. Hypothyroidism resume Synthroid 4. Psychosis: With Hallucinations with agitation. Patient still having significant confusion. Patient followed closely by psychiatry. They have discontinued the Seroquel. Zyprexa dose increased to 5 mg 3 times a day by psychiatry. We'll await further psychiatric recommendations. Patient is still very confused with some aggressive behavior. Computed tomography scan of the brain showed no acute changes. Patient also followed by neurology they have also ordered a repeat EEG 5. Atelectasis: Continue incentive vomiting. New patchy left basilar atelectasis and/or infiltrate noted on chest x-ray. Likely this is atelectasis doubt pneumonia. Patient denies any cough or fever. no elevated white count. 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 Sinus bradycardia cardiology has decreased the dose of his beta jaskaran. Heart rate has improved. TSH level normal 8. 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 Total bilirubin down to 2.3. LFTs normal. Continue to monitor 9. Coughing up eggs. We'll check chest x-ray and swallow evaluation rule out aspiration 10. Hypernatremia with poor oral intake and dehydration. Patient is been maintained on D5/0.45 at 75 mL an hour. Repeat labs in a.m. Prophylaxis Pepcid and DVT prophylaxis Lovenox I performed an examination of the patient and discussed their management with the physician Gettering Operator. I have reviewed the Physician Gettering Operator's notes and agree with the documented findings and plan of care
--- NOTE | 2017-05-10 11:56 | XR ---
EXAMINATION TYPE: XR chest 2V DATE OF EXAM: 05/10/2017 COMPARISON: 05/01/2017 HISTORY: 86-year-old male shortness of breath, rule out aspiration TECHNIQUE: Frontal and lateral views FINDINGS: Heart upper limits of normal in size. Mild elongation of the thoracic aorta. Some crowded vascular ma rkings from low lung volumes. No consolidation or pleural effusions. Strandy atelectasis lower lungs. IMPRESSION: Strandy lower lung areas of atelectasis. No acute cardiopulmonary process.
--- NOTE | 2017-05-10 18:33 | P.PN ---
Subjective Progress Note Date: 05/10/17 This patient is a 86-year-old male with past medical history of hypertension and hypothyroidism. He was admitted to Hospital after having frequent falls and near syncope. He had undergone an initial computed tomography scan of the brain on admission which failed to reveal any acute changes. Patient was seen by psychiatry as he is had symptoms of increase in agitation and combativeness. He has been started initially by psychiatry on Seroquel for management of his agitation and hallucinations. He did undergo routine EEG which was diffusely slow. Patient was reevaluated by psychiatry today for his acute psychosis. He was switched to Zyprexa and his current dose is 5 mg Zyprexa 3 times a day. Patient still remains very confused and disoriented. His speech appears to be much more slurred and dysphasic today. He was seen by Dr. Hinds yesterday and was noted to show worsening of his confusion and his agitation. Patient was sent for a stat computed tomography scan of the brain yesterday which failed to reveal any evidence of acute stroke or hemorrhage. We have also requested a repeat EEG to be done. Apparently this was not done today and we will wait to see if it is completed tomorrow. Patient does seem to be less agitated today. We will have psychiatry reevaluate the patient tomorrow as he is not showing any significant improvement in his overall mental status. His overall prognosis remains very guarded. We will continue to follow him closely during this admission. Patient will need placement and apparently social work is working on a ECF/SNF placement for him when he is medically stable. His overall prognosis at this time remains very guarded. Objective - Vital Signs Vital signs: Vital Signs Temp 97.4 F L 05/10/17 15:00 Pulse 70 05/10/17 16:00 Resp 18 05/10/17 16:00 BP 139/68 05/10/17 15:00 Pulse Ox 95 05/10/17 15:00 Intake & Output 05/09/17 05/10/17 05/10/17 18:59 06:59 18:59 Intake Total 450 Balance 450 Weight 85.5 kg Intake: Intake, IV Titration 450 Amount Dextrose 5%-0.45% NaCl 1, 450 000 ml @ 75 mls/hr IV . [id number] Rx#:[id number] Other: Voiding Method Diaper Diaper Diaper Incontinent Incontinent Incontinent # Voids 1 2 2 - Exam Physical examination: PHYSICAL EXAMINATION: Patient is resting comfortably in bed. He does not require restraints in bed this evening. He still remains very confused and disoriented. VITAL SIGNS: Blood pressure is [139/68]. Heart rate is [72]. Respiration is [18] . Temperature is [97.4]. HEENT: Head is atraumatic, neck is supple, there were no carotid bruits. CHEST: Lungs are clear to auscultation and percussion. CARDIAC: S1, S2 normal rate and rhythm. There is no murmur. ABDOMEN: Soft and nontender. Bowel sounds are present. EXTREMITIES: There is no pedal edema. Peripheral pulses are present. Neurological examination: Patient is awake alert oriented 2. Patient appears to be more confused this evening than yesterday. Patient is still is intermittently confused and is tangential in his thinking. His memory and intellectual functions are impaired. Speech is much more dysphasic today. No focal motor deficit on examination. - Labs CBC & Chem 7: 05/10/17 07:17 05/10/17 07:17 Labs: Abnormal Lab Results - Last 24 Hours (Table) 05/10/17 05/10/17 Range/Units 07:17 07:17 RBC 4.26 L (4.30-5.90) m/uL Hgb 12.6 L (13.0-17.5) gm/dL Sodium 151 H (137-145) mmol/L Chloride 113 H (98-107) mmol/L BUN 27 H (9-20) mg/dL Glucose 116 H (74-99) mg/dL Total Bilirubin 2.1 H (0.2-1.3) mg/dL Total Protein 5.8 L (6.3-8.2) g/dL Albumin 3.0 L (3.5-5.0) g/dL Assessment and Plan (1) Syncope and collapse Current Visit: Yes Status: Acute Code(s): R55 - SYNCOPE AND COLLAPSE SNOMED Code(s): 114807225 (2) Acute encephalopathy Current Visit: Yes Status: Acute Code(s): G93.40 - ENCEPHALOPATHY, UNSPECIFIED SNOMED Code(s): 7490210 (3) Sinus bradycardia Current Visit: Yes Status: Acute Code(s): R00.1 - BRADYCARDIA, UNSPECIFIED SNOMED Code(s): 91350923 (4) Vestibular neuronitis Current Visit: Yes Status: Acute Code(s): H81.20 - VESTIBULAR NEURONITIS, UNSPECIFIED EAR SNOMED Code(s): 398850820 Plan: This patient is a 86-year-old male who was initially admitted to Hospital with presyncope and frequent falls. Patient has been seen by psychiatry for treatment of acute psychosis. He is currently on Zyprexa as prescribed by psychiatry 5 mg 3 times a day. He still remains very disoriented. His speech was very dysphasic yesterday. He was sent for a computed tomography scan of the brain yesterday evening which came back negative for any evidence of acute stroke or hemorrhage. There was moderate degree of cortical atrophy noted. This patient clearly showing waxing and waning signs of acute mental status changes. He is showing worsening of his underlying psychosis and we will await further recommendations from psychiatry. We have requested a repeat EEG but this was not done today. We will review the study once it is completed. His overall prognosis at this time remains very guarded.
[2017-05-10] MEDS: traMADol 50 MG TAB PO PRN (22:45)
[2017-05-11] MEDS: LEVOTHYROXINE 88 MCG TAB PO SCH (05:53)
[2017-05-11 07:22] LABS: Basophils % (A) 0 %; Eosinophils # (A) 0.1 k/uL (0-0.7); Eosinophils % (A) 1 %; HCT 42.4 % (39.0-53.0); HGB 13.3 gm/dL (13.0-17.5); Hypochromasia Slight; Lymphocytes % (A) 11 %; MCH 28.7 pg (25.0-35.0); MCHC 31.4 g/dL (31.0-37.0); MCV 91.4 fL (80.0-100.0); Mean Platelet Volume 8.1; Monocytes # (A) 0.4 k/uL (0-1.0); Monocytes % (A) 5 %; Neutrophils # (A) 7.2 k/uL (1.3-7.7); Neutrophils % (A) 82 %; Platelet Count 255 k/uL (150-450); RBC 4.64 m/uL (4.30-5.90); RDW 13.6 % (11.5-15.5); WBC 8.8 k/uL (3.8-10.6)
[2017-05-11 07:36] LABS: ALT 50 U/L (21-72); AST 41 U/L (17-59); Albumin 3.3 g/dL (3.5-5.0); Alkaline Phosphatase 81 U/L (38-126); Anion Gap 10 mmol/L; Blood Urea Nitrogen 29 mg/dL (9-20); Calcium 9.7 mg/dL (8.4-10.2); Carbon Dioxide 29 mmol/L (22-30); Chloride 114 mmol/L (98-107); Glucose 101 mg/dL (74-99); Potassium 3.8 mmol/L (3.5-5.1); Sodium 153 mmol/L (137-145); Total Bilirubin 2.5 mg/dL (0.2-1.3); Total Protein 6.3 g/dL (6.3-8.2)
[2017-05-11] MEDS: DEXTROSE 5%-0.45% NACL 1,000 ML IV SCH ×2 (07:43→16:51)
[2017-05-11] MEDS: MULTIVITAMINS, THERA 1 EACH TAB PO SCH (09:24)
[2017-05-11] MEDS: ATENOLOL 25 MG TAB PO SCH (09:24)
[2017-05-11] MEDS: OLANZapine 5 MG TAB PO SCH ×3 (09:25→21:40)
[2017-05-11] MEDS: VIT A,C & E-LUTEIN-MINERALS 1 EACH TAB PO SCH (09:25)
[2017-05-11] MEDS: ENOXAPARIN 40 MG/0.4 ML SYRINGE SQ SCH (09:25)
[2017-05-11] MEDS: FAMOTIDINE 20 MG TAB PO SCH (09:25)
[2017-05-11] MEDS: POTASSIUM CHLORIDE ER 10 MEQ TAB.ER.PRT PO SCH (09:25)
--- NOTE | 2017-05-11 11:15 | P.PN ---
Subjective Progress Note Date: 05/11/17 This is a 86-year-old male with a known past medical history of hypertension and hypothyroidism. Patient presents to the hospital after having frequent falls starting prior to [place]. He had a fall again this morning where he was walking downstairs and on the last step he continued just to lean forward and he fell hitting the left side of his head on the hardwood floor. He felt that he did not pass out. However, there are concerns that there was a syncopal episode involved per ER report. He is been admitted the hospital for further syncope evaluation. He does report having dizziness upon changing positions from going from a sitting to standing position. He denies any chest pain or shortness of breath. Denies any nausea or vomiting. Denies any fevers chills or sweats, cough, bowel movement changes or urinary symptoms. Computed tomography scan of the brain reveals no acute changes. Chest x-ray showed a new patchy left basilar atelectasis versus infiltrate. Left hip x-ray completed which was negative for any fractures. EKG had shown sinus rhythm with sinus arrhythmia and occasional PVCs. Patient has been admitted to the telemetry for audiology has been consulted. Echo and carotid have been ordered. Patient does still report having issues with hallucinations. He was hospitalized in January for hallucinations and evaluated by psychiatry at that time. 05/03/2017 patient is been having hallucinations as well as easily being agitated. He is requiring the IV Ativan. He has been seen by psychiatry and they have added Seroquel. However, patient is still hallucinating and having episodes of agitation requiring bedside sitter which was ordered for today. Cardiology has cleared patient. Patient be transferred to regular medical floor. 05/04/2017 patient is sleepy but arousable. Patient did require Ativan yesterday. Per nursing staff patient slept through the night. Awaiting psychiatric evaluation. No new complaints 05/07/2017 Patient is still having confusion. Psychiatry is following they have discontinued Seroquel and added Zyprexa. The Zyprexa was started yesterday. The zyprexa dosage adjusted per psychiatry 05/10/2017 patient is still very confused with some aggressive behavior. Psychiatry had adjusted the Zyprexa to 5 mg 3 times a day yesterday. Neurology ordered a computed tomography scan of the brain showing cerebral atrophy with no acute changes. This morning patient ate breakfast without any signs of choking. But later he coughed and coughed up eggs. Concerns about possible aspiration. Chest x-ray and speech therapy evaluation was ordered for swallow evaluation 05/11/2017 patient still confused. He states that [place] the [place] when asked "does he know where he is?" Otherwise he does not know his name did not know that he is in the hospital does not know the year. Patient He did not have aggressive behavior through the night. However, it is difficult to tell if patient has difficulty swallowing or he does not like the Diet. He will be seen by speech therapy today. Sodium level is at 153. Patient will not keep his IV in and has not been receiving the D5W half-normal saline. Patient did have a bowel movement. Nursing staff reports hemorrhoids. However, unlikely that patient would be able to tolerate Anusol due to his confusion Objective - Vital Signs Vital signs: Vital Signs Temp 96.7 F L 05/11/17 07:00 Pulse 73 05/11/17 07:00 Resp 16 05/11/17 07:00 BP 131/66 05/11/17 07:00 Pulse Ox 99 05/11/17 07:00 Intake & Output 05/10/17 05/11/17 05/11/17 18:59 06:59 18:59 Other: Voiding Method Diaper Diaper Diaper Incontinent Incontinent Incontinent # Voids 1 2 # Bowel Movements 1 - Exam Head normocephalic Neck supple Lungs clear to auscultation bilaterally no wheezing or crackles Heart regular rate and rhythm S1-S2, no rub or gallop Abdomen is soft nontender nondistended positive bowel sounds no hepatosplenomegaly Extremities no edema Neuro patient confused. Not making any sense while talking - Labs CBC & Chem 7: 05/11/17 06:39 05/11/17 06:39 Labs: Abnormal Lab Results - Last 24 Hours (Table) 05/11/17 Range/Units 06:39 Sodium 153 H (137-145) mmol/L Chloride 114 H (98-107) mmol/L BUN 29 H (9-20) mg/dL Glucose 101 H (74-99) mg/dL Total Bilirubin 2.5 H (0.2-1.3) mg/dL Albumin 3.3 L (3.5-5.0) g/dL Assessment and Plan Assessment: 1. Pre-syncopal episode with frequent falls: May have been related to sinus bradycardia and significant bilateral lower extremity weakness that may be contributing to his falls. Computed tomography scan of the brain showed no acute changes. Did reveal moderate diffuse age-related cerebral atrophy and chronic small vessel ischemic changes redemonstrated. EKG shows sinus rhythm with sinus arrhythmia and occasional PVCs. Echocardiogram showed preserved EF with no significant valvular abnormalities. Carotid Doppler with no significant hemodynamic stenosis. Patient was seen and evaluated by cardiology and neurology. PT/OT consultation requested. Cardiology has signed off 2. Essential hypertension resume atenolol 3. Hypothyroidism resume Synthroid 4. Psychosis: With Hallucinations with agitation. Patient still having significant confusion. Patient followed closely by psychiatry. They have discontinued the Seroquel. Zyprexa dose increased to 5 mg 3 times a day by psychiatry. We'll await further psychiatric recommendations. Patient is still very confused with some aggressive behavior. Computed tomography scan of the brain showed no acute changes. Patient also followed by neurology they have also ordered a repeat EEG Patient did not have any aggressive behaviors to the evening. Continue to monitor patient closely 5. Atelectasis: Continue incentive vomiting. New patchy left basilar atelectasis and/or infiltrate noted on chest x-ray. Likely this is atelectasis doubt pneumonia. Patient denies any cough or fever. no elevated white count. 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 Sinus bradycardia cardiology has decreased the dose of his beta jaskaran. Heart rate has improved. TSH level normal 8. 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 Total bilirubin down to 2.3. LFTs normal. Continue to monitor 9. Difficulty with swallowing. Patient points seen by speech therapy diet has been adjusted to a pured diet. Chest x-ray showed no evidence of pneumonia did reveal some atelectasis. Patient does have incentive spirometer at bedside but due to his confusion he has not used 10. Hypernatremia with poor oral intake and dehydration. Sodium level 153. Patient has pulled out his IV. Unable to give IV fluids Prophylaxis Pepcid and DVT prophylaxis Lovenox I performed an examination of the patient and discussed their management with the physician Timber Sprinkler. I have reviewed the Physician Timber Sprinkler's notes and agree with the documented findings and plan of care
--- NOTE | 2017-05-11 19:15 | EEG ---
ELECTROENCEPHALOGRAM REPORT DATE OF EE05/11/2017 ELECTROENCEPHALOGRAPHIC EXAMINATION REPORT: INDICATION FOR EXAMINATION: This patient is an 86-year-old male being evaluated for acute delirium and psychosis. This is a follow-up EEG for comparison. AGE: [age]. EEG FINDINGS: A routine 21-channel awake digital EEG recording was accomplished utilizing the 10-20 international system with bipolar and referential montages. The background activity in the most alert resting state consists of a low to medium amplitude, poorly developed and poorly sustained 4-5 Hz activity over the posterior head regions. This posterior rhythm attenuates to eye opening. There is a small amount of low amplitude 18-20 Hz beta activity seen maximally over the anterior head regions. Muscle and movement artifact was observed on a few occasions during the tracing. Hyperventilation was not performed. Photic stimulation at flash frequencies of 2-30 Hz produced a minimal occipital driving response. No epileptiform discharges were seen. IMPRESSION: This EEG gives evidence of a severe widespread diffuse disturbance in cerebral function. The EEG failed to reveal any focal, lateralized, or epileptiform abnormalities. Compared to a previous EEG performed on 05/04/2017, there is deterioration in the EEG background. Clinical correlation is recommended. MMODL / IJN: [id number] /
--- NOTE | 2017-05-11 19:32 | P.PN ---
Subjective Progress Note Date: 05/11/17 This patient is a 86-year-old male with past medical history of hypertension and hypothyroidism. He was admitted to Hospital after having frequent falls and near syncope. He had undergone an initial computed tomography scan of the brain on admission which failed to reveal any acute changes. Patient was seen by psychiatry as he is had symptoms of increase in agitation and combativeness. He has been started initially by psychiatry on Seroquel for management of his agitation and hallucinations. He did undergo routine EEG which was diffusely slow. Patient was reevaluated by psychiatry today for his acute psychosis. He was switched to Zyprexa and his current dose is 5 mg Zyprexa 3 times a day. Patient still remains very confused and disoriented. His speech appears to be much more slurred and dysphasic today. He was seen by Dr. Hinds yesterday and was noted to show worsening of his confusion and his agitation. Patient was sent for a stat computed tomography scan of the brain which failed to reveal any evidence of acute stroke or hemorrhage. We have also requested a repeat EEG to be done. This EEG was finally completed today and was reviewed. His EEG reveals severe slowing of all EEG background. This is a worsening of his previous EEG performed on 05/04/2017. No epileptiform discharges were seen. Patient does seem to be less agitated today. We will have psychiatry reevaluate the patient tomorrow as he is not showing any significant improvement in his overall mental status. His overall prognosis remains very guarded. We will continue to follow him closely during this admission. Patient will need placement and apparently social work is working on a ECF/SNF placement for him when he is medically stable. His case was discussed today at bedside with his stepdaughter. She was updated on the EEG and CAT scan results that were recently completed. She states they are waiting possible placement to ECF in [place]. We will await any further recommendations from psychiatry. His overall prognosis at this time remains very guarded. Objective - Vital Signs Vital signs: Vital Signs Temp 97.9 F 05/11/17 15:00 Pulse 77 05/11/17 15:00 Resp 18 05/11/17 15:00 BP 106/61 05/11/17 15:00 Pulse Ox 98 05/11/17 15:00 Intake & Output 05/10/17 05/11/17 05/11/17 18:59 06:59 18:59 Other: Voiding Method Diaper Diaper Diaper Incontinent Incontinent Incontinent # Voids 1 2 1 # Bowel Movements 1 - Exam Physical examination: PHYSICAL EXAMINATION: Patient is resting comfortably in bed. He does not require restraints in bed this evening. He still remains very confused and disoriented. VITAL SIGNS: Blood pressure is [106/61]. Heart rate is [77]. Respiration is [18] . Temperature is [97.9]. HEENT: Head is atraumatic, neck is supple, there were no carotid bruits. CHEST: Lungs are clear to auscultation and percussion. CARDIAC: S1, S2 normal rate and rhythm. There is no murmur. ABDOMEN: Soft and nontender. Bowel sounds are present. EXTREMITIES: There is no pedal edema. Peripheral pulses are present. Neurological examination: Patient is awake alert oriented 2. Patient is still is intermittently confused and is tangential in his thinking. His memory and intellectual functions are impaired. No focal motor deficit on examination. - Labs CBC & Chem 7: 05/11/17 06:39 05/11/17 06:39 Labs: Abnormal Lab Results - Last 24 Hours (Table) 05/11/17 Range/Units 06:39 Sodium 153 H (137-145) mmol/L Chloride 114 H (98-107) mmol/L BUN 29 H (9-20) mg/dL Glucose 101 H (74-99) mg/dL Total Bilirubin 2.5 H (0.2-1.3) mg/dL Albumin 3.3 L (3.5-5.0) g/dL Assessment and Plan (1) Syncope and collapse Current Visit: Yes Status: Acute Code(s): R55 - SYNCOPE AND COLLAPSE SNOMED Code(s): 278359903 (2) Acute encephalopathy Current Visit: Yes Status: Acute Code(s): G93.40 - ENCEPHALOPATHY, UNSPECIFIED SNOMED Code(s): 1790594 (3) Sinus bradycardia Current Visit: Yes Status: Acute Code(s): R00.1 - BRADYCARDIA, UNSPECIFIED SNOMED Code(s): 16545697 (4) Vestibular neuronitis Current Visit: Yes Status: Acute Code(s): H81.20 - VESTIBULAR NEURONITIS, UNSPECIFIED EAR SNOMED Code(s): 982312514 Plan: This patient is a 86-year-old male being evaluated for increased confusion and psychosis. Psychiatry is following the patient closely and is adjusted his psychiatric medications. He is currently on Zyprexa 5 mg 3 times a day. We are waiting further recommendations from psychiatry. Patient had a follow-up computed tomography scan of the brain which failed to reveal any evidence of stroke. He did show slight evidence of aphasia and worsening confusion. As noted CAT scan came back negative for acute stroke or hemorrhage. The patient had a follow-up EEG today which is reviewed. His EEG shows severe diffuse slowing with no epileptiform discharges. The EEG is deteriorated from his previous study done on 05/14/2017. We will continue to follow his progress closely. Plans are being made with discharge planning for transfer of this patient to ECF/SNF in [place]. We will continue to follow him closely during this admission. His overall prognosis at this time remains very guarded. Case was discussed at length with the patient's stepdaughter bedside this evening. All of her questions were answered. She is aware of his guarded condition.
[2017-05-11] MEDS: DOCUSATE 100 MG CAP PO SCH (21:38)
[2017-05-12] MEDS: traMADol 50 MG TAB PO PRN (01:10)
[2017-05-12] MEDS: LEVOTHYROXINE 88 MCG TAB PO SCH (06:13)
[2017-05-12 07:23] LABS: Basophils % (A) 0 %; Eosinophils # (A) 0.2 k/uL (0-0.7); Eosinophils % (A) 2 %; HCT 42.5 % (39.0-53.0); HGB 13.2 gm/dL (13.0-17.5); Hypochromasia Slight; Lymphocytes # (A) 1.1 k/uL (1.0-4.8); Lymphocytes % (A) 12 %; MCH 29.4 pg (25.0-35.0); MCHC 31.1 g/dL (31.0-37.0); MCV 94.6 fL (80.0-100.0); Mean Platelet Volume 8.8; Monocytes # (A) 0.5 k/uL (0-1.0); Monocytes % (A) 5 %; Neutrophils # (A) 7.4 k/uL (1.3-7.7); Neutrophils % (A) 80 %; Platelet Count 245 k/uL (150-450); RBC 4.49 m/uL (4.30-5.90); RDW 13.9 % (11.5-15.5); WBC 9.3 k/uL (3.8-10.6)
[2017-05-12 07:43] LABS: ALT 51 U/L (21-72); AST 40 U/L (17-59); Albumin 3.3 g/dL (3.5-5.0); Alkaline Phosphatase 79 U/L (38-126); Anion Gap 10 mmol/L; Blood Urea Nitrogen 31 mg/dL (9-20); Calcium 9.6 mg/dL (8.4-10.2); Carbon Dioxide 30 mmol/L (22-30); Chloride 114 mmol/L (98-107); Glucose 143 mg/dL (74-99); Potassium 3.8 mmol/L (3.5-5.1); Sodium 154 mmol/L (137-145); Total Bilirubin 2.6 mg/dL (0.2-1.3); Total Protein 6.3 g/dL (6.3-8.2)
[2017-05-12] MEDS: DEXTROSE 5%-0.45% NACL 1,000 ML IV SCH (09:37)
[2017-05-12] MEDS: ATENOLOL 25 MG TAB PO SCH ×2 (09:38→09:51)
[2017-05-12] MEDS: OLANZapine 5 MG TAB PO SCH ×4 (09:38→21:46)
[2017-05-12] MEDS: DOCUSATE 100 MG CAP PO SCH ×2 (09:50→21:46)
[2017-05-12] MEDS: ASPIRIN 81 MG PO SCH (09:50)
[2017-05-12] MEDS: ENOXAPARIN 40 MG/0.4 ML SYRINGE SQ SCH (09:50)
[2017-05-12] MEDS: FAMOTIDINE 20 MG TAB PO SCH (09:50)
[2017-05-12] MEDS: VIT A,C & E-LUTEIN-MINERALS 1 EACH TAB PO SCH (09:50)
[2017-05-12] MEDS: POTASSIUM CHLORIDE ER 10 MEQ TAB.ER.PRT PO SCH (09:50)
[2017-05-12] MEDS ORDERED: LORazepam 2 MG/ML INJ IM STA (11:15)
--- NOTE | 2017-05-12 11:20 | P.PN ---
Subjective Progress Note Date: 05/12/17 This is a 86-year-old male with a known past medical history of hypertension and hypothyroidism. Patient presents to the hospital after having frequent falls starting prior to [place]. He had a fall again this morning where he was walking downstairs and on the last step he continued just to lean forward and he fell hitting the left side of his head on the hardwood floor. He felt that he did not pass out. However, there are concerns that there was a syncopal episode involved per ER report. He is been admitted the hospital for further syncope evaluation. He does report having dizziness upon changing positions from going from a sitting to standing position. He denies any chest pain or shortness of breath. Denies any nausea or vomiting. Denies any fevers chills or sweats, cough, bowel movement changes or urinary symptoms. Computed tomography scan of the brain reveals no acute changes. Chest x-ray showed a new patchy left basilar atelectasis versus infiltrate. Left hip x-ray completed which was negative for any fractures. EKG had shown sinus rhythm with sinus arrhythmia and occasional PVCs. Patient has been admitted to the telemetry for audiology has been consulted. Echo and carotid have been ordered. Patient does still report having issues with hallucinations. He was hospitalized in January for hallucinations and evaluated by psychiatry at that time. 05/03/2017 patient is been having hallucinations as well as easily being agitated. He is requiring the IV Ativan. He has been seen by psychiatry and they have added Seroquel. However, patient is still hallucinating and having episodes of agitation requiring bedside sitter which was ordered for today. Cardiology has cleared patient. Patient be transferred to regular medical floor. 05/04/2017 patient is sleepy but arousable. Patient did require Ativan yesterday. Per nursing staff patient slept through the night. Awaiting psychiatric evaluation. No new complaints 05/07/2017 Patient is still having confusion. Psychiatry is following they have discontinued Seroquel and added Zyprexa. The Zyprexa was started yesterday. The zyprexa dosage adjusted per psychiatry 05/10/2017 patient is still very confused with some aggressive behavior. Psychiatry had adjusted the Zyprexa to 5 mg 3 times a day yesterday. Neurology ordered a computed tomography scan of the brain showing cerebral atrophy with no acute changes. This morning patient ate breakfast without any signs of choking. But later he coughed and coughed up eggs. Concerns about possible aspiration. Chest x-ray and speech therapy evaluation was ordered for swallow evaluation 05/11/2017 patient still confused. [place] when asked "does he know where he is?" Otherwise he does not know his name did not know that he is in the hospital does not know the year. Patient He did not have aggressive behavior through the night. However, it is difficult to tell if patient has difficulty swallowing or he does not like the Diet. He will be seen by speech therapy today. Sodium level is at 153. Patient will not keep his IV in and has not been receiving the D5W half-normal saline. Patient did have a bowel movement. Nursing staff reports hemorrhoids. However, unlikely that patient would be able to tolerate Anusol due to his confusion On 05/12/2017 patient is very confused occasionally agitated he is refusing all medications he is refusing all oral intake, his sodium and BUN continue to go higher he does not have an IV and has pulled all of his previous IV access lines. At this time will give Ativan 2 mg IM and an attempt to secure an IV line for hydration will ask psychiatry to reevaluate patient for further management. Objective - Vital Signs Vital signs: Vital Signs Temp 97.1 F L 05/11/17 22:30 Pulse 75 05/12/17 00:00 Resp 16 05/12/17 00:00 BP 151/77 05/11/17 22:30 Pulse Ox 93 L 05/11/17 22:30 Intake & Output 05/11/17 05/12/17 05/12/17 18:59 06:59 18:59 Intake Total 240 Balance 240 Weight 85.5 kg 85.5 kg Intake: Oral 240 Other: Voiding Method Diaper Diaper Incontinent Incontinent # Voids 1 1 # Bowel Movements 1 - Exam Head normocephalic Neck supple Lungs clear to auscultation bilaterally no wheezing or crackles Heart regular rate and rhythm S1-S2, no rub or gallop Abdomen is soft nontender nondistended positive bowel sounds no hepatosplenomegaly Extremities no edema Neuro Patient is sleepy but arousable. Able to answer questions. gets agitated easily - Labs CBC & Chem 7: 05/12/17 07:08 01/17/18 07:08 Labs: Abnormal Lab Results - Last 24 Hours (Table) 05/12/17 Range/Units 07:08 Sodium 154 H (137-145) mmol/L Chloride 114 H (98-107) mmol/L BUN 31 H (9-20) mg/dL Glucose 143 H (74-99) mg/dL Total Bilirubin 2.6 H (0.2-1.3) mg/dL Albumin 3.3 L (3.5-5.0) g/dL Assessment and Plan Plan: 1. Pre-syncopal episode with frequent falls: May have been related to sinus bradycardia and significant bilateral lower extremity weakness that may be contributing to his falls. Computed tomography scan of the brain showed no acute changes. Did reveal moderate diffuse age-related cerebral atrophy and chronic small vessel ischemic changes redemonstrated. EKG shows sinus rhythm with sinus arrhythmia and occasional PVCs. Echocardiogram showed preserved EF with no significant valvular abnormalities. Carotid Doppler with no significant hemodynamic stenosis. Patient was seen and evaluated by cardiology and neurology. PT/OT consultation requested. Cardiology has signed off 2. Essential hypertension resume atenolol 3. Hypothyroidism resume Synthroid 4. Psychosis: With Hallucinations with agitation. Patient still having significant confusion. Patient followed closely by psychiatry. They have discontinued the Seroquel. Zyprexa dose increased to 5 mg 3 times a day by psychiatry. We'll await further psychiatric recommendations. Patient is still very confused with some aggressive behavior. Computed tomography scan of the brain showed no acute changes. Patient also followed by neurology they have also ordered a repeat EEG Patient did not have any aggressive behaviors to the evening. Continue to monitor patient closely 5. Atelectasis: Continue incentive vomiting. New patchy left basilar atelectasis and/or infiltrate noted on chest x-ray. Likely this is atelectasis doubt pneumonia. Patient denies any cough or fever. no elevated white count. 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 Sinus bradycardia cardiology has decreased the dose of his beta jaskaran. Heart rate has improved. TSH level normal 8. 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 Total bilirubin down to 2.3. LFTs normal. Continue to monitor 9. Difficulty with swallowing. Patient points seen by speech therapy diet has been adjusted to a pured diet. Chest x-ray showed no evidence of pneumonia did reveal some atelectasis. Patient does have incentive spirometer at bedside but due to his confusion he has not used 10. Hypernatremia with poor oral intake and dehydration. Sodium level 153. Patient has pulled out his IV. Unable to give IV fluids Prophylaxis Pepcid and DVT prophylaxis Lovenox
[2017-05-12] MEDS: DEXTROSE 5%-0.2% NACL 1,000 ML IV SCH (12:02)
[2017-05-12] MEDS: MULTIVITAMINS, THERA 1 EACH TAB PO SCH (12:03)
[2017-05-12] MEDS ORDERED: LORazepam 2 MG/ML INJ IV PRN (22:02)
[2017-05-13] MEDS: DEXTROSE 5%-0.2% NACL 1,000 ML IV SCH ×3 (00:48→18:39)
[2017-05-13 07:27] LABS: ALT 46 U/L (21-72); AST 35 U/L (17-59); Albumin 2.9 g/dL (3.5-5.0); Alkaline Phosphatase 76 U/L (38-126); Anion Gap 8 mmol/L; Blood Urea Nitrogen 22 mg/dL (9-20); Carbon Dioxide 29 mmol/L (22-30); Chloride 113 mmol/L (98-107); Glucose 113 mg/dL (74-99); Potassium 3.4 mmol/L (3.5-5.1); Sodium 150 mmol/L (137-145); Total Bilirubin 2.2 mg/dL (0.2-1.3); Total Protein 5.8 g/dL (6.3-8.2)
[2017-05-13 07:41] LABS: Basophils % (A) 0 %; Eosinophils # (A) 0.2 k/uL (0-0.7); Eosinophils % (A) 3 %; HCT 38.9 % (39.0-53.0); HGB 12.5 gm/dL (13.0-17.5); Lymphocytes % (A) 14 %; MCH 29.8 pg (25.0-35.0); MCHC 32.1 g/dL (31.0-37.0); MCV 92.8 fL (80.0-100.0); Mean Platelet Volume 7.7; Monocytes # (A) 0.3 k/uL (0-1.0); Monocytes % (A) 5 %; Neutrophils # (A) 5.8 k/uL (1.3-7.7); Neutrophils % (A) 78 %; Platelet Count 211 k/uL (150-450); RDW 12.8 % (11.5-15.5); WBC 7.5 k/uL (3.8-10.6)
[2017-05-13 07:48] LABS: Glucose,Whole Blood 103 mg/dL (75-99)
[2017-05-13] MEDS: LEVOTHYROXINE 88 MCG TAB PO SCH ×2 (08:41→09:33)
[2017-05-13] MEDS: FAMOTIDINE 20 MG TAB PO SCH ×2 (08:44→09:33)
[2017-05-13] MEDS: OLANZapine 5 MG TAB PO SCH ×3 (08:44→18:07)
[2017-05-13] MEDS: ATENOLOL 25 MG TAB PO SCH ×2 (08:44→09:33)
[2017-05-13] MEDS: POTASSIUM CHLORIDE ER 20 MEQ TAB.ER PO STA ×2 (08:44→09:35)
[2017-05-13] MEDS: DOCUSATE 100 MG CAP PO SCH ×2 (08:44→22:02)
[2017-05-13] MEDS: MULTIVITAMINS, THERA 1 EACH TAB PO SCH ×2 (08:46→09:33)
[2017-05-13] MEDS: VIT A,C & E-LUTEIN-MINERALS 1 EACH TAB PO SCH ×2 (08:46→09:33)
[2017-05-13] MEDS: POTASSIUM CHLORIDE ER 10 MEQ TAB.ER.PRT PO SCH ×2 (08:46→09:33)
[2017-05-13] MEDS: ENOXAPARIN 40 MG/0.4 ML SYRINGE SQ SCH (08:49)
--- NOTE | 2017-05-13 10:38 | P.PN ---
Subjective Progress Note Date: 05/13/17 This is a 86-year-old male with a known past medical history of hypertension and hypothyroidism. Patient presents to the hospital after having frequent falls starting prior to [place]. He had a fall again this morning where he was walking downstairs and on the last step he continued just to lean forward and he fell hitting the left side of his head on the hardwood floor. He felt that he did not pass out. However, there are concerns that there was a syncopal episode involved per ER report. He is been admitted the hospital for further syncope evaluation. He does report having dizziness upon changing positions from going from a sitting to standing position. He denies any chest pain or shortness of breath. Denies any nausea or vomiting. Denies any fevers chills or sweats, cough, bowel movement changes or urinary symptoms. Computed tomography scan of the brain reveals no acute changes. Chest x-ray showed a new patchy left basilar atelectasis versus infiltrate. Left hip x-ray completed which was negative for any fractures. EKG had shown sinus rhythm with sinus arrhythmia and occasional PVCs. Patient has been admitted to the telemetry for audiology has been consulted. Echo and carotid have been ordered. Patient does still report having issues with hallucinations. He was hospitalized in January for hallucinations and evaluated by psychiatry at that time. 05/03/2017 patient is been having hallucinations as well as easily being agitated. He is requiring the IV Ativan. He has been seen by psychiatry and they have added Seroquel. However, patient is still hallucinating and having episodes of agitation requiring bedside sitter which was ordered for today. Cardiology has cleared patient. Patient be transferred to regular medical floor. 05/04/2017 patient is sleepy but arousable. Patient did require Ativan yesterday. Per nursing staff patient slept through the night. Awaiting psychiatric evaluation. No new complaints 05/07/2017 Patient is still having confusion. Psychiatry is following they have discontinued Seroquel and added Zyprexa. The Zyprexa was started yesterday. The zyprexa dosage adjusted per psychiatry 05/10/2017 patient is still very confused with some aggressive behavior. Psychiatry had adjusted the Zyprexa to 5 mg 3 times a day yesterday. Neurology ordered a computed tomography scan of the brain showing cerebral atrophy with no acute changes. This morning patient ate breakfast without any signs of choking. But later he coughed and coughed up eggs. Concerns about possible aspiration. Chest x-ray and speech therapy evaluation was ordered for swallow evaluation 05/11/2017 patient still confused. [place] when asked "does he know where he is?" Otherwise he does not know his name did not know that he is in the hospital does not know the year. Patient He did not have aggressive behavior through the night. However, it is difficult to tell if patient has difficulty swallowing or he does not like the Diet. He will be seen by speech therapy today. Sodium level is at 153. Patient will not keep his IV in and has not been receiving the D5W half-normal saline. Patient did have a bowel movement. Nursing staff reports hemorrhoids. However, unlikely that patient would be able to tolerate Anusol due to his confusion 05/13/2017 patient is awake today he is lying in bed comfortably. He did require Ativan yesterday and slept's through the day and evening. He knows his name only. He has been able to keep the IV and his sodium level has decreased from 154-150. Still confused had episodes of agitation and combativeness yesterday. Patient seen by speech therapy and according to nursing staff was showing some signs of possible aspiration. Diet adjusted to pured diet with honey thick liquids and aspiration precautions. Objective - Vital Signs Vital signs: Vital Signs Temp 98.2 F 05/13/17 07:00 Pulse 90 05/13/17 07:00 Resp 18 05/13/17 07:00 BP 105/59 05/13/17 07:00 Pulse Ox 92 L 05/13/17 07:00 Intake & Output 05/12/17 05/13/17 05/13/17 18:59 06:59 18:59 Intake Total 150 900 Balance 150 900 Weight 85.5 kg Intake: IV 900 Dextrose 5%-0.2% NaCl 1, 900 000 ml @ 100 mls/hr IV . Q10H SHASTA Rx#:[id number] Intake, IV Titration 150 Amount Dextrose 5%-0.2% NaCl 1, 150 000 ml @ 100 mls/hr IV . Q10H SHASTA Rx#:[id number] Other: Voiding Method Diaper Diaper Diaper Incontinent Incontinent Incontinent # Voids 3 1 - Exam Head normocephalic Neck supple Lungs clear to auscultation bilaterally no wheezing or crackles Heart regular rate and rhythm S1-S2, no rub or gallop Abdomen is soft nontender nondistended positive bowel sounds no hepatosplenomegaly Extremities no edema Neuro patient confused he is alert and orientated to his name only. Still having episodes of hallucinating talking to people that are not there in the room - Labs CBC & Chem 7: 05/13/17 06:38 05/13/17 06:38 Labs: Abnormal Lab Results - Last 24 Hours (Table) 05/13/17 05/13/17 05/13/17 Range/Units 06:38 06:38 07:39 RBC 4.20 L (4.30-5.90) m/uL Hgb 12.5 L (13.0-17.5) gm/dL Hct 38.9 L (39.0-53.0) % Sodium 150 H (137-145) mmol/L Potassium 3.4 L (3.5-5.1) mmol/L Chloride 113 H (98-107) mmol/L BUN 22 H (9-20) mg/dL Glucose 113 H (74-99) mg/dL POC Glucose (mg/dL) 103 H (75-99) mg/dL Total Bilirubin 2.2 H (0.2-1.3) mg/dL Total Protein 5.8 L (6.3-8.2) g/dL Albumin 2.9 L (3.5-5.0) g/dL Assessment and Plan Assessment: 1. Pre-syncopal episode with frequent falls: May have been related to sinus bradycardia and significant bilateral lower extremity weakness that may be contributing to his falls. Computed tomography scan of the brain showed no acute changes. Did reveal moderate diffuse age-related cerebral atrophy and chronic small vessel ischemic changes redemonstrated. EKG shows sinus rhythm with sinus arrhythmia and occasional PVCs. Echocardiogram showed preserved EF with no significant valvular abnormalities. Carotid Doppler with no significant hemodynamic stenosis. Patient was seen and evaluated by cardiology and neurology. PT/OT consultation requested. Cardiology has signed off 2. Essential hypertension resume atenolol 3. Hypothyroidism resume Synthroid 4. Psychosis: With Hallucinations with agitation. Patient followed closely by psychiatry. They have discontinued the Seroquel. Zyprexa dose increased to 5 mg 3 times a day by psychiatry. Computed tomography scan of the brain showed no acute changes. Patient did require IV Ativan yesterday for his agitation and aggressive behavior. Patient still confused. We'll have psychiatry reevaluate patient 5. Atelectasis: Continue incentive vomiting. New patchy left basilar atelectasis and/or infiltrate noted on chest x-ray. Likely this is atelectasis doubt pneumonia. Patient denies any cough or fever. no elevated white count. 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 Sinus bradycardia cardiology has decreased the dose of his beta jaskaran. Heart rate has improved. TSH level normal 8. 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 Total bilirubin down to 2.3. LFTs normal. Continue to monitor 9. Difficulty with swallowing. Patient seen by speech therapy diet has been adjusted to a pured diet with honey thick liquids and aspiration precautions. Chest x-ray showed no evidence of pneumonia did reveal some atelectasis. Patient does have incentive spirometer at bedside but due to his confusion he has not used 10. Hypernatremia with poor oral intake and dehydration. Able to keep IV fluids through the night. Sodium level has decreased from 154-150 Prophylaxis Pepcid and DVT prophylaxis Lovenox I performed an examination of the patient and discussed their management with the physician Separating Machine Operator. I have reviewed the Physician Separating Machine Operator's notes and agree with the documented findings and plan of care
[2017-05-13 12:06] LABS: Glucose,Whole Blood 134 mg/dL (75-99)
--- NOTE | 2017-05-13 17:44 | CONS ---
CONSULTATION DATE OF SERVICE: 05/13/2017. PURPOSE FOR CONSULTATION: Evaluate for altered mental status. INTERVAL HISTORY: Patient continues to struggle with restlessness and confusion. Staff note that he had a very difficult day yesterday with a lot of struggles. When staff try to assist with personal care they said today he has been doing better. They note that in general he has had more problems with cognition in recent days. Earlier on in his hospitalization, he had some communication abilities. Now his language has deteriorated to mostly unintelligible things. He continues to be restless. I met with the patient's son-in-law who expressed concern that he agreed that the patient had been doing quite a bit better when he first came into the hospital and now has slipped. Note that the CT scan and the EEG for the most part are unremarkable for any acute change. The son-in-law was concerned about whether any of his medications could be adding to some of his confusion. Lab work from this morning does not reveal any significant outstanding findings. He has some mild electrolyte abnormalities. There is no indication for infection. When I saw the patient, he was lying in bed. He was verbalizing some things, though his voice was soft and mumbled. He did not say anything that was intelligible. He was somewhat restless. At this point, I will discontinue Zyprexa and just re-evaluate the patient off psychotropic medications. I will have staff contact me based on any behavioral concerns there may be. ASIF / HERLINDA: [id number] /
[2017-05-13 17:56] LABS: Glucose,Whole Blood 170 mg/dL (75-99)
[2017-05-14] MEDS: LEVOTHYROXINE 88 MCG TAB PO SCH (06:51)
[2017-05-14] MEDS: DEXTROSE 5%-0.2% NACL 1,000 ML IV SCH ×3 (07:41→17:22)
[2017-05-14] MEDS: ENOXAPARIN 40 MG/0.4 ML SYRINGE SQ SCH (07:42)
[2017-05-14] MEDS: POTASSIUM CHLORIDE ER 10 MEQ TAB.ER.PRT PO SCH (07:43)
[2017-05-14] MEDS: DOCUSATE 100 MG CAP PO SCH ×2 (07:43→22:08)
[2017-05-14] MEDS: FAMOTIDINE 20 MG TAB PO SCH (07:43)
[2017-05-14] MEDS: ASPIRIN 81 MG PO SCH (07:43)
[2017-05-14] MEDS: ATENOLOL 25 MG TAB PO SCH (07:44)
[2017-05-14] MEDS: VIT A,C & E-LUTEIN-MINERALS 1 EACH TAB PO SCH (07:44)
[2017-05-14 07:46] LABS: Basophils % (A) 0 %; Eosinophils # (A) 0.2 k/uL (0-0.7); Eosinophils % (A) 4 %; HCT 40.9 % (39.0-53.0); HGB 12.6 gm/dL (13.0-17.5); Lymphocytes # (A) 0.9 k/uL (1.0-4.8); Lymphocytes % (A) 14 %; MCHC 30.9 g/dL (31.0-37.0); MCV 93.7 fL (80.0-100.0); Mean Platelet Volume 8.2; Monocytes # (A) 0.3 k/uL (0-1.0); Monocytes % (A) 5 %; Neutrophils % (A) 76 %; Platelet Count 216 k/uL (150-450); RBC 4.36 m/uL (4.30-5.90); RDW 13.8 % (11.5-15.5); WBC 6.5 k/uL (3.8-10.6)
[2017-05-14 07:59] LABS: ALT 49 U/L (21-72); AST 40 U/L (17-59); Alkaline Phosphatase 81 U/L (38-126); Anion Gap 10 mmol/L; Blood Urea Nitrogen 17 mg/dL (9-20); Calcium 9.2 mg/dL (8.4-10.2); Carbon Dioxide 28 mmol/L (22-30); Chloride 111 mmol/L (98-107); Glucose 97 mg/dL (74-99); Potassium 3.7 mmol/L (3.5-5.1); Sodium 149 mmol/L (137-145); Total Bilirubin 2.2 mg/dL (0.2-1.3); Total Protein 5.9 g/dL (6.3-8.2)
--- NOTE | 2017-05-14 10:45 | P.PN ---
Subjective Progress Note Date: 05/14/17 This is a 86-year-old male with a known past medical history of hypertension and hypothyroidism. Patient presents to the hospital after having frequent falls starting prior to [place]. He had a fall again this morning where he was walking downstairs and on the last step he continued just to lean forward and he fell hitting the left side of his head on the hardwood floor. He felt that he did not pass out. However, there are concerns that there was a syncopal episode involved per ER report. He is been admitted the hospital for further syncope evaluation. He does report having dizziness upon changing positions from going from a sitting to standing position. He denies any chest pain or shortness of breath. Denies any nausea or vomiting. Denies any fevers chills or sweats, cough, bowel movement changes or urinary symptoms. Computed tomography scan of the brain reveals no acute changes. Chest x-ray showed a new patchy left basilar atelectasis versus infiltrate. Left hip x-ray completed which was negative for any fractures. EKG had shown sinus rhythm with sinus arrhythmia and occasional PVCs. Patient has been admitted to the telemetry for audiology has been consulted. Echo and carotid have been ordered. Patient does still report having issues with hallucinations. He was hospitalized in January for hallucinations and evaluated by psychiatry at that time. 05/03/2017 patient is been having hallucinations as well as easily being agitated. He is requiring the IV Ativan. He has been seen by psychiatry and they have added Seroquel. However, patient is still hallucinating and having episodes of agitation requiring bedside sitter which was ordered for today. Cardiology has cleared patient. Patient be transferred to regular medical floor. 05/04/2017 patient is sleepy but arousable. Patient did require Ativan yesterday. Per nursing staff patient slept through the night. Awaiting psychiatric evaluation. No new complaints 05/07/2017 Patient is still having confusion. Psychiatry is following they have discontinued Seroquel and added Zyprexa. The Zyprexa was started yesterday. The zyprexa dosage adjusted per psychiatry 05/10/2017 patient is still very confused with some aggressive behavior. Psychiatry had adjusted the Zyprexa to 5 mg 3 times a day yesterday. Neurology ordered a computed tomography scan of the brain showing cerebral atrophy with no acute changes. This morning patient ate breakfast without any signs of choking. But later he coughed and coughed up eggs. Concerns about possible aspiration. Chest x-ray and speech therapy evaluation was ordered for swallow evaluation 05/11/2017 patient still confused. He states that [place] the [place] when asked "does he know where he is?" Otherwise he does not know his name did not know that he is in the hospital does not know the year. Patient He did not have aggressive behavior through the night. However, it is difficult to tell if patient has difficulty swallowing or he does not like the Diet. He will be seen by speech therapy today. Sodium level is at 153. Patient will not keep his IV in and has not been receiving the D5W half-normal saline. Patient did have a bowel movement. Nursing staff reports hemorrhoids. However, unlikely that patient would be able to tolerate Anusol due to his confusion 05/13/2017 patient is awake today he is lying in bed comfortably. He did require Ativan yesterday and slept's through the day and evening. He knows his name only. He has been able to keep the IV and his sodium level has decreased from 154-150. Still confused had episodes of agitation and combativeness yesterday. Patient seen by speech therapy and according to nursing staff was showing some signs of possible aspiration. Diet adjusted to pured diet with honey thick liquids and aspiration precautions. 05/14/2017 patient is confused. He is up through the night and not sleeping well. Patient was only able to in applesauce this morning and a few bites a yogurt. Psychiatry evaluated patient yesterday and discontinued the Zyprexa. Sodium level is trending down at 149. IV infiltrated last night. There have difficulty restarting IV. Anesthesia has been notified. Patient was not as aggressive during the day yesterday. It is still having mumbling speech. He is alert and orientated times zero. He did not know his own name today. Objective - Vital Signs Vital signs: Vital Signs Temp 97.7 F 05/14/17 07:00 Pulse 70 05/14/17 07:00 Resp 16 05/14/17 07:00 BP 121/57 05/14/17 07:00 Pulse Ox 97 05/14/17 07:00 Intake & Output 05/13/17 05/14/17 05/14/17 18:59 06:59 18:59 Intake Total 800 200 Balance 800 200 Intake: IV 800 200 Dextrose 5%-0.2% NaCl 1, 800 200 000 ml @ 100 mls/hr IV . Q10H [facility] Rx#:[id number] Other: Voiding Method Diaper Diaper Incontinent Incontinent # Voids 1 2 - Exam Head normocephalic Neck supple Lungs clear to auscultation bilaterally no wheezing or crackles Heart regular rate and rhythm S1-S2, no rub or gallop Abdomen is soft nontender nondistended positive bowel sounds no hepatosplenomegaly Extremities no edema Neuro patient confused he is alert and orientated to 0 . - Labs CBC & Chem 7: 05/14/17 07:22 05/14/17 07:22 Labs: Abnormal Lab Results - Last 24 Hours (Table) 05/13/17 05/13/17 05/14/17 Range/Units 12:04 17:35 07:22 Hgb 12.6 L (13.0-17.5) gm/dL MCHC 30.9 L (31.0-37.0) g/dL Lymphocytes # 0.9 L (1.0-4.8) k/uL Sodium (137-145) mmol/L Chloride (98-107) mmol/L POC Glucose (mg/dL) 134 H 170 H (75-99) mg/dL Total Bilirubin (0.2-1.3) mg/dL Total Protein (6.3-8.2) g/dL Albumin (3.5-5.0) g/dL 05/14/17 Range/Units 07:22 Hgb (13.0-17.5) gm/dL MCHC (31.0-37.0) g/dL Lymphocytes # (1.0-4.8) k/uL Sodium 149 H (137-145) mmol/L Chloride 111 H (98-107) mmol/L POC Glucose (mg/dL) (75-99) mg/dL Total Bilirubin 2.2 H (0.2-1.3) mg/dL Total Protein 5.9 L (6.3-8.2) g/dL Albumin 3.0 L (3.5-5.0) g/dL Assessment and Plan Assessment: 1. Pre-syncopal episode with frequent falls: May have been related to sinus bradycardia and significant bilateral lower extremity weakness that may be contributing to his falls. Computed tomography scan of the brain showed no acute changes. Did reveal moderate diffuse age-related cerebral atrophy and chronic small vessel ischemic changes redemonstrated. EKG shows sinus rhythm with sinus arrhythmia and occasional PVCs. Echocardiogram showed preserved EF with no significant valvular abnormalities. Carotid Doppler with no significant hemodynamic stenosis. Patient was seen and evaluated by cardiology and neurology. PT/OT consultation requested. Cardiology has signed off 2. Essential hypertension resume atenolol 3. Hypothyroidism resume Synthroid 4. Psychosis: With Hallucinations with agitation. Patient followed closely by psychiatry. They have discontinued the Seroquel. Zyprexa discontinued yesterday. Computed tomography scan of the brain showed no acute changes. Patient still having significant confusion. psychiatry following 5. Atelectasis: Continue incentive vomiting. New patchy left basilar atelectasis and/or infiltrate noted on chest x-ray. Likely this is atelectasis doubt pneumonia. Patient denies any cough or fever. no elevated white count. 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 Sinus bradycardia cardiology has decreased the dose of his beta jaskaran. Heart rate has improved. TSH level normal 8. 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 Total bilirubin down to 2.3. LFTs normal. Continue to monitor 9. Difficulty with swallowing. Patient seen by speech therapy diet has been adjusted to a pured diet with honey thick liquids and aspiration precautions. Chest x-ray showed no evidence of pneumonia did reveal some atelectasis. Patient does have incentive spirometer at bedside but due to his confusion he has not used 10. Hypernatremia with poor oral intake and dehydration. try to restart IV fluids with D5 half-normal saline. Continue monitor sodium level Prophylaxis Pepcid and DVT prophylaxis Lovenox Case was discussed with patient's son at bedside yesterday. At this time we will monitor patient through the weekend to see how he responds to fluids and if his confusion improves. If there is no improvement we'll discuss possibly placing patient on hospice. I performed an examination of the patient and discussed their management with the physician Program Manager. I have reviewed the Physician Program Manager's notes and agree with the documented findings and plan of care
[2017-05-14] MEDS: OLANZapine 5 MG TAB PO SCH ×3 (12:52→22:08)
[2017-05-14] MEDS: MULTIVITAMINS, THERA 1 EACH TAB PO SCH (12:52)
[2017-05-14] MEDS ORDERED: DEXTROSE 5%-0.2% NACL 1,000 ML IV ONE (13:15)
--- NOTE | 2017-05-14 15:12 | CONS ---
CONSULTATION DATE OF SERVICE: 05/14/2017 PURPOSE FOR CONSULTATION: Evaluate for altered mental status. INTERVAL HISTORY: Patient has been doing fair. I had met yesterday with the patient's son-in-law. The son-in-law expressed concern that the patient has had increasing problems since he has been in the hospital. It is noted that when I read Dr. Milligan's initial consultation of May 01, he indicated that there were significant cognitive issues with inability to communicate. Also, behavior issues were about the same. The son-in-law had concerned about medications. As such, I stopped the Zyprexa altogether. Staff reports that last evening he was quite restless and at times could get agitated. He slept poorly last night. Today, he continues to be restless and resistant to care. His overall level of confusion remains the same. Staff do feel that when he was on the Zyprexa, he was more calm, overall. It is the case that he may be still having more trouble with communication than early on his hospital stay. Early on, he could say some things that were meaningful though disconnected from anything. At anything of the current circumstances, he was quite confused when he came in and continues to be so. From a psychiatric standpoint, I will reinitiate Zyprexa to see if we can at least improve some of his behavioral issues. MMEMILEL / DANKN: [id number] /
[2017-05-15] MEDS: DEXTROSE 5%-0.2% NACL 1,000 ML IV SCH ×2 (04:49→16:32)
[2017-05-15] MEDS: LEVOTHYROXINE 88 MCG TAB PO SCH (06:04)
[2017-05-15 07:42] LABS: Basophils % (A) 0 %; Eosinophils # (A) 0.2 k/uL (0-0.7); Eosinophils % (A) 4 %; HCT 37.8 % (39.0-53.0); HGB 12.4 gm/dL (13.0-17.5); Lymphocytes # (A) 0.7 k/uL (1.0-4.8); Lymphocytes % (A) 12 %; MCH 29.3 pg (25.0-35.0); MCHC 32.8 g/dL (31.0-37.0); MCV 89.5 fL (80.0-100.0); Mean Platelet Volume 8.3; Monocytes # (A) 0.3 k/uL (0-1.0); Monocytes % (A) 5 %; Neutrophils # (A) 4.2 k/uL (1.3-7.7); Neutrophils % (A) 76 %; Platelet Count 200 k/uL (150-450); RBC 4.23 m/uL (4.30-5.90); RDW 13.7 % (11.5-15.5); WBC 5.5 k/uL (3.8-10.6)
[2017-05-15] MEDS: VIT A,C & E-LUTEIN-MINERALS 1 EACH TAB PO SCH (07:53)
[2017-05-15] MEDS: POTASSIUM CHLORIDE ER 10 MEQ TAB.ER.PRT PO SCH (07:53)
[2017-05-15] MEDS: DOCUSATE 100 MG CAP PO SCH ×2 (07:53→20:01)
[2017-05-15] MEDS: OLANZapine 5 MG TAB PO SCH ×3 (07:53→19:59)
[2017-05-15] MEDS: FAMOTIDINE 20 MG TAB PO SCH (07:53)
[2017-05-15] MEDS: ENOXAPARIN 40 MG/0.4 ML SYRINGE SQ SCH (07:54)
[2017-05-15] MEDS: ATENOLOL 25 MG TAB PO SCH (07:54)
[2017-05-15 07:55] LABS: ALT 50 U/L (21-72); AST 36 U/L (17-59); Albumin 2.7 g/dL (3.5-5.0); Alkaline Phosphatase 75 U/L (38-126); Anion Gap 8 mmol/L; Blood Urea Nitrogen 11 mg/dL (9-20); Calcium 8.7 mg/dL (8.4-10.2); Carbon Dioxide 27 mmol/L (22-30); Chloride 107 mmol/L (98-107); Glucose 111 mg/dL (74-99); Potassium 3.4 mmol/L (3.5-5.1); Sodium 142 mmol/L (137-145); Total Bilirubin 1.5 mg/dL (0.2-1.3); Total Protein 5.4 g/dL (6.3-8.2)
[2017-05-15] MEDS: MULTIVITAMINS, THERA 1 EACH TAB PO SCH (10:51)
[2017-05-15] MEDS ORDERED: POTASSIUM CHLORIDE ER 20 MEQ TAB.ER PO STA (11:25)
--- NOTE | 2017-05-15 12:29 | P.PN ---
Subjective Progress Note Date: 05/15/17 Patient is being seen by me today for weekend coverage. He is awake and alert. His daughter is at bedside. Speech is garbled and then having hard time understanding that he sustained. His daughter told me that this is better compared to a few days ago. Objective - Vital Signs Vital signs: Vital Signs Temp 98.4 F 05/15/17 11:02 Pulse 81 05/14/17 21:52 Resp 16 05/15/17 08:00 BP 152/67 05/15/17 07:00 Pulse Ox 95 05/14/17 21:52 Intake & Output 05/14/17 05/15/17 05/15/17 18:59 06:59 18:59 Intake Total 490 550 Output Total 400 Balance 90 550 Intake: IV 400 400 Dextrose 5%-0.2% NaCl 1, 400 400 000 ml @ 100 mls/hr IV . Q10H [facility] Rx#:[id number] Oral 90 150 Output: Urine 400 Other: Voiding Method Diaper Diaper Diaper Incontinent Incontinent Incontinent # Voids 3 4 - Exam General: The patient is awake and alert, in no distress Eye: there is normal conjunctiva bilaterally. Neck: The neck is supple, there is no JVD. Cardiovascular: Normal S1-S2, no S3-S4, no murmurs. Respiratory: Lungs clear to auscultation bilaterally Gastrointestinal: Abdomen is soft, nontender Musculoskeletal: There is no pedal edema. Neurological:. Speech is garbled Skin: Skin is warm and dry - Labs CBC & Chem 7: 05/15/17 06:53 05/15/17 06:53 Labs: Abnormal Lab Results - Last 24 Hours (Table) 05/15/17 05/15/17 Range/Units 06:53 06:53 RBC 4.23 L (4.30-5.90) m/uL Hgb 12.4 L (13.0-17.5) gm/dL Hct 37.8 L (39.0-53.0) % Lymphocytes # 0.7 L (1.0-4.8) k/uL Potassium 3.4 L (3.5-5.1) mmol/L Glucose 111 H (74-99) mg/dL Total Bilirubin 1.5 H (0.2-1.3) mg/dL Total Protein 5.4 L (6.3-8.2) g/dL Albumin 2.7 L (3.5-5.0) g/dL Assessment and Plan Assessment: 1. Pre-syncopal episode with frequent falls: May have been related to sinus bradycardia and significant bilateral lower extremity weakness that may be contributing to his falls. Computed tomography scan of the brain showed no acute changes. Did reveal moderate diffuse age-related cerebral atrophy and chronic small vessel ischemic changes redemonstrated. EKG shows sinus rhythm with sinus arrhythmia and occasional PVCs. Echocardiogram showed preserved EF with no significant valvular abnormalities. Carotid Doppler with no significant hemodynamic stenosis. Patient was seen and evaluated by cardiology and neurology. PT/OT consultation requested. Cardiology has signed off 2. Essential hypertension resume atenolol 3. Hypothyroidism resume Synthroid 4. Psychosis: With Hallucinations with agitation. Patient followed closely by psychiatry. They have discontinued the Seroquel. Zyprexa discontinued. Computed tomography scan of the brain showed no acute changes. Patient still having significant confusion. psychiatry following 5. Atelectasis: Continue incentive vomiting. New patchy left basilar atelectasis and/or infiltrate noted on chest x-ray. Likely this is atelectasis doubt pneumonia. Patient denies any cough or fever. no elevated white count. 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 Sinus bradycardia cardiology has decreased the dose of his beta jaskaran. Heart rate has improved. TSH level normal 8. 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 Total bilirubin down to 2.3. LFTs normal. Continue to monitor 9. Difficulty with swallowing. Patient seen by speech therapy diet has been adjusted to a pured diet with honey thick liquids and aspiration precautions. Chest x-ray showed no evidence of pneumonia did reveal some atelectasis. Patient does have incentive spirometer at bedside but due to his confusion he has not used 10. Hypernatremia with poor oral intake and dehydration. try to restart IV fluids with D5 half-normal saline. Continue monitor sodium level Prophylaxis Pepcid and DVT prophylaxis Lovenox Continue supportive care Give extra dose of potassium chloride 20 mEq a day Decrease IV fluids to 0.9 normal saline at 75 mL per hour
[2017-05-15] MEDS: traMADol 50 MG TAB PO PRN (17:58)
[2017-05-16] MEDS: LEVOTHYROXINE 88 MCG TAB PO SCH (06:20)
[2017-05-16] MEDS: DEXTROSE 5%-0.2% NACL 1,000 ML IV SCH (06:20)
[2017-05-16] MEDS: FAMOTIDINE 20 MG TAB PO SCH (08:45)
[2017-05-16] MEDS: DOCUSATE 100 MG CAP PO SCH ×2 (08:45→20:20)
[2017-05-16] MEDS: ATENOLOL 25 MG TAB PO SCH (08:45)
[2017-05-16] MEDS: POTASSIUM CHLORIDE ER 10 MEQ TAB.ER.PRT PO SCH (08:45)
[2017-05-16] MEDS: VIT A,C & E-LUTEIN-MINERALS 1 EACH TAB PO SCH (08:45)
[2017-05-16] MEDS: ENOXAPARIN 40 MG/0.4 ML SYRINGE SQ SCH (08:45)
[2017-05-16] MEDS: OLANZapine 5 MG TAB PO SCH ×3 (08:45→20:20)
[2017-05-16 10:46] LABS: Basophils % (A) 0 %; Eosinophils # (A) 0.1 k/uL (0-0.7); Eosinophils % (A) 3 %; HCT 37.8 % (39.0-53.0); HGB 12.4 gm/dL (13.0-17.5); Lymphocytes # (A) 0.7 k/uL (1.0-4.8); Lymphocytes % (A) 14 %; MCH 29.8 pg (25.0-35.0); MCHC 32.8 g/dL (31.0-37.0); MCV 90.9 fL (80.0-100.0); Mean Platelet Volume 7.7; Monocytes # (A) 0.4 k/uL (0-1.0); Monocytes % (A) 7 %; Neutrophils # (A) 3.6 k/uL (1.3-7.7); Neutrophils % (A) 74 %; Platelet Count 190 k/uL (150-450); RBC 4.16 m/uL (4.30-5.90); RDW 13.6 % (11.5-15.5); WBC 4.9 k/uL (3.8-10.6)
[2017-05-16 10:59] LABS: ALT 60 U/L (21-72); AST 66 U/L (17-59); Albumin 2.6 g/dL (3.5-5.0); Alkaline Phosphatase 84 U/L (38-126); Anion Gap 9 mmol/L; Blood Urea Nitrogen 8 mg/dL (9-20); Calcium 8.6 mg/dL (8.4-10.2); Carbon Dioxide 23 mmol/L (22-30); Chloride 107 mmol/L (98-107); Glucose 93 mg/dL (74-99); Potassium 3.4 mmol/L (3.5-5.1); Sodium 139 mmol/L (137-145); Total Bilirubin 1.8 mg/dL (0.2-1.3); Total Protein 5.4 g/dL (6.3-8.2)
[2017-05-16] MEDS: MULTIVITAMINS, THERA 1 EACH TAB PO SCH (13:19)
--- NOTE | 2017-05-16 14:57 | P.PN ---
Subjective Progress Note Date: 05/16/17 Patient is being agitated throughout the morning and taking off his gown. Objective - Vital Signs Vital signs: Vital Signs Temp 97.9 F 05/16/17 07:00 Pulse 69 05/16/17 08:00 Resp 18 05/16/17 08:00 BP 126/63 05/16/17 07:00 Pulse Ox 96 05/16/17 07:00 Intake & Output 05/15/17 05/16/17 05/16/17 18:59 06:59 18:59 Intake Total 120 630 120 Output Total 400 Balance -280 630 120 Intake: Intake, IV Titration 600 Amount Dextrose 5%-0.2% NaCl 1, 600 000 ml @ 75 mls/hr IV . [id number] [facility] Rx#:[id number] Oral 120 30 120 Output: Urine 400 Other: Voiding Method Diaper Diaper Diaper Incontinent Incontinent Incontinent # Voids 2 1 5 - Exam General: The patient is awake and alert, in no distress Eye: there is normal conjunctiva bilaterally. Neck: The neck is supple, there is no JVD. Cardiovascular: Normal S1-S2, no S3-S4, no murmurs. Respiratory: Lungs clear to auscultation bilaterally Gastrointestinal: Abdomen is soft, nontender Musculoskeletal: There is no pedal edema. Neurological:. Speech is garbled Skin: Skin is warm and dry - Labs CBC & Chem 7: 05/16/17 09:54 05/16/17 09:54 Labs: Abnormal Lab Results - Last 24 Hours (Table) 05/16/17 05/16/17 Range/Units 09:54 09:54 RBC 4.16 L (4.30-5.90) m/uL Hgb 12.4 L (13.0-17.5) gm/dL Hct 37.8 L (39.0-53.0) % Lymphocytes # 0.7 L (1.0-4.8) k/uL Potassium 3.4 L (3.5-5.1) mmol/L BUN 8 L (9-20) mg/dL Total Bilirubin 1.8 H (0.2-1.3) mg/dL AST 66 H (17-59) U/L Total Protein 5.4 L (6.3-8.2) g/dL Albumin 2.6 L (3.5-5.0) g/dL Assessment and Plan Assessment: 1. Pre-syncopal episode with frequent falls: May have been related to sinus bradycardia and significant bilateral lower extremity weakness that may be contributing to his falls. Computed tomography scan of the brain showed no acute changes. Did reveal moderate diffuse age-related cerebral atrophy and chronic small vessel ischemic changes redemonstrated. EKG shows sinus rhythm with sinus arrhythmia and occasional PVCs. Echocardiogram showed preserved EF with no significant valvular abnormalities. Carotid Doppler with no significant hemodynamic stenosis. Patient was seen and evaluated by cardiology and neurology. PT/OT consultation requested. Cardiology has signed off 2. Essential hypertension resume atenolol 3. Hypothyroidism resume Synthroid 4. Psychosis: With Hallucinations with agitation. Patient followed closely by psychiatry. They have discontinued the Seroquel. Zyprexa discontinued. Computed tomography scan of the brain showed no acute changes. Patient still having significant confusion. psychiatry following 5. Atelectasis: Continue incentive vomiting. New patchy left basilar atelectasis and/or infiltrate noted on chest x-ray. Likely this is atelectasis doubt pneumonia. Patient denies any cough or fever. no elevated white count. 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 Sinus bradycardia cardiology has decreased the dose of his beta jaskaran. Heart rate has improved. TSH level normal 8. 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 Total bilirubin down to 2.3. LFTs normal. Continue to monitor 9. Difficulty with swallowing. Patient seen by speech therapy diet has been adjusted to a pured diet with honey thick liquids and aspiration precautions. Chest x-ray showed no evidence of pneumonia did reveal some atelectasis. Patient does have incentive spirometer at bedside but due to his confusion he has not used 10. Hypernatremia with poor oral intake and dehydration. try to restart IV fluids with D5 half-normal saline. Continue monitor sodium level Prophylaxis Pepcid and DVT prophylaxis Lovenox Continue supportive care Discontinue IV fluid Awaiting family decision for hospice
[2017-05-17] MEDS: LEVOTHYROXINE 88 MCG TAB PO SCH (06:23)
[2017-05-17] MEDS: OLANZapine 5 MG TAB PO SCH ×3 (08:15→21:07)
[2017-05-17] MEDS: ASPIRIN 81 MG PO SCH (08:15)
[2017-05-17] MEDS: DOCUSATE 100 MG CAP PO SCH ×2 (08:15→21:07)
[2017-05-17] MEDS: ATENOLOL 25 MG TAB PO SCH (08:15)
[2017-05-17] MEDS: ENOXAPARIN 40 MG/0.4 ML SYRINGE SQ SCH (08:15)
[2017-05-17] MEDS: VIT A,C & E-LUTEIN-MINERALS 1 EACH TAB PO SCH (08:15)
[2017-05-17] MEDS: POTASSIUM CHLORIDE ER 10 MEQ TAB.ER.PRT PO SCH (08:15)
[2017-05-17] MEDS: FAMOTIDINE 20 MG TAB PO SCH (08:15)
[2017-05-17 08:48] LABS: Basophils % (A) 0 %; Eosinophils # (A) 0.1 k/uL (0-0.7); Eosinophils % (A) 1 %; HGB 12.7 gm/dL (13.0-17.5); Lymphocytes # (A) 0.7 k/uL (1.0-4.8); Lymphocytes % (A) 13 %; MCH 29.8 pg (25.0-35.0); MCHC 33.4 g/dL (31.0-37.0); MCV 89.2 fL (80.0-100.0); Mean Platelet Volume 7.4; Monocytes # (A) 0.4 k/uL (0-1.0); Monocytes % (A) 6 %; Neutrophils # (A) 4.5 k/uL (1.3-7.7); Neutrophils % (A) 78 %; Platelet Count 216 k/uL (150-450); RBC 4.26 m/uL (4.30-5.90); RDW 12.6 % (11.5-15.5); WBC 5.7 k/uL (3.8-10.6)
[2017-05-17 09:01] LABS: ALT 83 U/L (21-72); AST 93 U/L (17-59); Albumin 2.9 g/dL (3.5-5.0); Alkaline Phosphatase 112 U/L (38-126); Anion Gap 10 mmol/L; Blood Urea Nitrogen 8 mg/dL (9-20); Carbon Dioxide 24 mmol/L (22-30); Chloride 107 mmol/L (98-107); Glucose 97 mg/dL (74-99); Potassium 3.3 mmol/L (3.5-5.1); Sodium 141 mmol/L (137-145); Total Bilirubin 2.4 mg/dL (0.2-1.3); Total Protein 5.9 g/dL (6.3-8.2)
[2017-05-17] MEDS ORDERED: POTASSIUM CHLORIDE ER 20 MEQ TAB.ER PO STA (10:35)
[2017-05-17] MEDS: MULTIVITAMINS, THERA 1 EACH TAB PO SCH (11:50)
--- NOTE | 2017-05-17 12:23 | P.PN ---
Subjective Progress Note Date: 05/17/17 This is a 86-year-old male with a known past medical history of hypertension and hypothyroidism. Patient presents to the hospital after having frequent falls starting prior to [place]. He had a fall again this morning where he was walking downstairs and on the last step he continued just to lean forward and he fell hitting the left side of his head on the hardwood floor. He felt that he did not pass out. However, there are concerns that there was a syncopal episode involved per ER report. He is been admitted the hospital for further syncope evaluation. He does report having dizziness upon changing positions from going from a sitting to standing position. He denies any chest pain or shortness of breath. Denies any nausea or vomiting. Denies any fevers chills or sweats, cough, bowel movement changes or urinary symptoms. Computed tomography scan of the brain reveals no acute changes. Chest x-ray showed a new patchy left basilar atelectasis versus infiltrate. Left hip x-ray completed which was negative for any fractures. EKG had shown sinus rhythm with sinus arrhythmia and occasional PVCs. Patient has been admitted to the telemetry for audiology has been consulted. Echo and carotid have been ordered. Patient does still report having issues with hallucinations. He was hospitalized in January for hallucinations and evaluated by psychiatry at that time. 05/03/2017 patient is been having hallucinations as well as easily being agitated. He is requiring the IV Ativan. He has been seen by psychiatry and they have added Seroquel. However, patient is still hallucinating and having episodes of agitation requiring bedside sitter which was ordered for today. Cardiology has cleared patient. Patient be transferred to regular medical floor. 05/04/2017 patient is sleepy but arousable. Patient did require Ativan yesterday. Per nursing staff patient slept through the night. Awaiting psychiatric evaluation. No new complaints 05/07/2017 Patient is still having confusion. Psychiatry is following they have discontinued Seroquel and added Zyprexa. The Zyprexa was started yesterday. The zyprexa dosage adjusted per psychiatry 05/10/2017 patient is still very confused with some aggressive behavior. Psychiatry had adjusted the Zyprexa to 5 mg 3 times a day yesterday. Neurology ordered a computed tomography scan of the brain showing cerebral atrophy with no acute changes. This morning patient ate breakfast without any signs of choking. But later he coughed and coughed up eggs. Concerns about possible aspiration. Chest x-ray and speech therapy evaluation was ordered for swallow evaluation 05/11/2017 patient still confused. He states that [place] the [place] when asked "does he know where he is?" Otherwise he does not know his name did not know that he is in the hospital does not know the year. Patient He did not have aggressive behavior through the night. However, it is difficult to tell if patient has difficulty swallowing or he does not like the Diet. He will be seen by speech therapy today. Sodium level is at 153. Patient will not keep his IV in and has not been receiving the D5W half-normal saline. Patient did have a bowel movement. Nursing staff reports hemorrhoids. However, unlikely that patient would be able to tolerate Anusol due to his confusion 05/13/2017 patient is awake today he is lying in bed comfortably. He did require Ativan yesterday and slept's through the day and evening. He knows his name only. He has been able to keep the IV and his sodium level has decreased from 154-150. Still confused had episodes of agitation and combativeness yesterday. Patient seen by speech therapy and according to nursing staff was showing some signs of possible aspiration. Diet adjusted to pured diet with honey thick liquids and aspiration precautions. 05/14/2017 patient is confused. He is up through the night and not sleeping well. Patient was only able to in applesauce this morning and a few bites a yogurt. Psychiatry evaluated patient yesterday and discontinued the Zyprexa. Sodium level is trending down at 149. IV infiltrated last night. There have difficulty restarting IV. Anesthesia has been notified. Patient was not as aggressive during the day yesterday. It is still having mumbling speech. He is alert and orientated times zero. He did not know his own name today. 05/17/2017 patient having agitation and confusion. He is alert and orientated to his name. Still having some hallucinations and mumbling speech. Psychiatry agreed restarted Zyprexa on Wednesday. Sodium level has now improved at 141. IV fluids were discontinued. He is only eating about 25% of his food this morning. AST has gone up from 66-93 ALT from 60-83 and total bili 1.8-2.4. Patient denies any abdominal pain Objective - Vital Signs Vital signs: Vital Signs Temp 96.1 F L 05/17/17 07:00 Pulse 72 05/17/17 07:00 Resp 12 05/17/17 07:00 BP 151/68 05/17/17 07:00 Pulse Ox 99 05/17/17 07:00 Intake & Output 05/16/17 05/17/17 05/17/17 18:59 06:59 18:59 Intake Total 120 420 120 Balance 120 420 120 Intake: Oral 120 420 120 Other: Voiding Method Diaper Diaper Incontinent Incontinent # Voids 1 2 - Exam Head normocephalic Neck supple Lungs clear to auscultation bilaterally no wheezing or crackles Heart regular rate and rhythm S1-S2, no rub or gallop Abdomen is soft nontender nondistended positive bowel sounds no hepatosplenomegaly Extremities no edema Neuro patient confused he is alert and orientated to 1 . Name only - Labs CBC & Chem 7: 05/17/17 08:35 05/17/17 08:35 Labs: Abnormal Lab Results - Last 24 Hours (Table) 05/17/17 05/17/17 Range/Units 08:35 08:35 RBC 4.26 L (4.30-5.90) m/uL Hgb 12.7 L (13.0-17.5) gm/dL Hct 38.0 L (39.0-53.0) % Lymphocytes # 0.7 L (1.0-4.8) k/uL Potassium 3.3 L (3.5-5.1) mmol/L BUN 8 L (9-20) mg/dL Total Bilirubin 2.4 H (0.2-1.3) mg/dL AST 93 H (17-59) U/L ALT 83 H (21-72) U/L Total Protein 5.9 L (6.3-8.2) g/dL Albumin 2.9 L (3.5-5.0) g/dL Assessment and Plan Assessment: 1. Pre-syncopal episode with frequent falls: May have been related to sinus bradycardia and significant bilateral lower extremity weakness that may be contributing to his falls. Computed tomography scan of the brain showed no acute changes. Did reveal moderate diffuse age-related cerebral atrophy and chronic small vessel ischemic changes redemonstrated. EKG shows sinus rhythm with sinus arrhythmia and occasional PVCs. Echocardiogram showed preserved EF with no significant valvular abnormalities. Carotid Doppler with no significant hemodynamic stenosis. Patient was seen and evaluated by cardiology and neurology. PT/OT consultation requested. Cardiology has signed off 2. Essential hypertension resume atenolol 3. Hypothyroidism resume Synthroid 4. Psychosis: With Hallucinations with agitation. Patient followed closely by psychiatry. They have discontinued the Seroquel. zyprex 5 mg 3 times a day restarted on Wednesday. Computed tomography scan of the brain showed no acute changes. Patient is not having any improvement. His hypernatremia has improved. He does likely have some underlying dementia contributing. However, we'll have psych reevaluate patient for further recommendations. Also evaluate patient for possible inpatient psych placement. 5. Atelectasis: Continue incentive vomiting. New patchy left basilar atelectasis and/or infiltrate noted on chest x-ray. Likely this is atelectasis doubt pneumonia. Patient denies any cough or fever. no elevated white count. 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 Sinus bradycardia cardiology has decreased the dose of his beta jaskaran. Heart rate has improved. TSH level normal 8. 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 Difficulty with swallowing. Patient seen by speech therapy diet has been adjusted to a pured diet with honey thick liquids and aspiration precautions. Chest x-ray showed no evidence of pneumonia did reveal some atelectasis. Patient does have incentive spirometer at bedside but due to his confusion he has not used 10. Hypernatremia with poor oral intake and dehydration. Sodium has been corrected. IV fluids discontinued 11. Mildly elevated LFTs. No abdominal pain. Continue to monitor. Repeat labs in a.m. Prophylaxis Pepcid and DVT prophylaxis Lovenox performed an examination of the patient and discussed their management with the physician Dairy Farm Worker. I have reviewed the Physician Dairy Farm Worker's notes and agree with the documented findings and plan of care
--- NOTE | 2017-05-17 16:43 | P.PN ---
Subjective Progress Note Date: 05/17/17 This patient is a 86-year-old male who was initially admitted to hospital for evaluation of falls and worsening confusion. Patient underwent extensive evaluation including CT scans of the brain which failed to reveal any evidence of acute stroke. He was admitted to hospital and has been followed up by several specialists and more recently is being closely monitored by psychiatry. Patient continues to have evidence of agitation and psychosis with increasing confusion. He was initially placed on Seroquel last week by psychiatry and this was discontinued and he was switched to Zyprexa. The patient still continues to show very little improvement in his overall cognitive functioning and psychiatric state. He still has evidence of confusion and agitation. He has had episodes of hallucinations but seems to be less agitated today and is laying comfortably in bed. He is only oriented to self. He has been having difficulty with his speech and for this reason repeat computed tomography scan was conducted to rule out stroke. This CAT scan also failed to reveal any acute changes of stroke. He had a follow-up EEG which was also consistent with a diffuse encephalopathy with no evidence of epileptiform discharges. The patient is seen today in his bed. His speech is slightly improved with less slurring and mumbling of his speech. His sodium level is slowly improving and is noted to be 141 today. He is eating only about 25 for sent of his meals. This case was discussed today with Dr. Hinds's physician campus administrative assistant Ms. Dixie Garcia and we reviewed all of his studies thus far completed. Dr. Hinds and the PA did have a discussion with family last Wednesday and they are awaiting to see if he shows some improvement in his overall mental status. He is being followed by psychiatry and the plan is to wait and have psychiatry reevaluate the patient today to see if he may be a candidate for geriatric psych unit. At this time he is felt to possibly require inpatient psychiatry placement. If this is not felt to be required by psychiatry then the patient will also be considered for hospice care. The patient is resting comfortably and denies any headache or focal weakness. He does seem to have symptoms of worsening underlying dementia. We will continue to follow his progress very closely during this admission. He remains afebrile. As noted his serum electrolytes and sodium are slowly being corrected. Once again case was discussed at length with the physician campus administrative assistant for Dr. Guzman Garcia and she is in full agreement with our findings and recommendations at this time. We will await a few more days to see if this patient shows any significant improvement in his overall mental status. We will follow along with them to see if there is any further improvement for the patient. His overall prognosis at this time remains very guarded. Objective - Vital Signs Vital signs: Vital Signs Temp 96.1 F L 05/17/17 07:00 Pulse 72 05/17/17 07:00 Resp 12 05/17/17 07:00 BP 151/68 05/17/17 07:00 Pulse Ox 99 05/17/17 07:00 Intake & Output 05/16/17 05/17/17 05/17/17 18:59 06:59 18:59 Intake Total 120 420 120 Balance 120 420 120 Weight 85.5 kg Intake: Oral 120 420 120 Other: Voiding Method Diaper Diaper Diaper Incontinent Incontinent Incontinent # Voids 1 2 - Exam Physical examination: PHYSICAL EXAMINATION: Patient is resting comfortably in bed. He does not require restraints in bed this evening. He still remains very confused and disoriented. VITAL SIGNS: Blood pressure is [151/68]. Heart rate is [72]. Respiration is [16] . Temperature is [96.1]. HEENT: Head is atraumatic, neck is supple, there were no carotid bruits. CHEST: Lungs are clear to auscultation and percussion. CARDIAC: S1, S2 normal rate and rhythm. There is no murmur. ABDOMEN: Soft and nontender. Bowel sounds are present. EXTREMITIES: There is no pedal edema. Peripheral pulses are present. Neurological examination: Patient is awake alert oriented 1. Patient is still is intermittently confused and is tangential in his thinking. His speech seems to be slightly improved and clear today than last week. His memory and intellectual functions are impaired. No focal motor deficit on examination. - Labs CBC & Chem 7: 05/17/17 08:35 05/17/17 08:35 Labs: Abnormal Lab Results - Last 24 Hours (Table) 05/17/17 05/17/17 Range/Units 08:35 08:35 RBC 4.26 L (4.30-5.90) m/uL Hgb 12.7 L (13.0-17.5) gm/dL Hct 38.0 L (39.0-53.0) % Lymphocytes # 0.7 L (1.0-4.8) k/uL Potassium 3.3 L (3.5-5.1) mmol/L BUN 8 L (9-20) mg/dL Total Bilirubin 2.4 H (0.2-1.3) mg/dL AST 93 H (17-59) U/L ALT 83 H (21-72) U/L Total Protein 5.9 L (6.3-8.2) g/dL Albumin 2.9 L (3.5-5.0) g/dL Assessment and Plan (1) Syncope and collapse Current Visit: Yes Status: Acute Code(s): R55 - SYNCOPE AND COLLAPSE SNOMED Code(s): 487301574 (2) Acute encephalopathy Current Visit: Yes Status: Acute Code(s): G93.40 - ENCEPHALOPATHY, UNSPECIFIED SNOMED Code(s): 1126859 (3) Sinus bradycardia Current Visit: Yes Status: Acute Code(s): R00.1 - BRADYCARDIA, UNSPECIFIED SNOMED Code(s): 07113960 (4) Vestibular neuronitis Current Visit: Yes Status: Acute Code(s): H81.20 - VESTIBULAR NEURONITIS, UNSPECIFIED EAR SNOMED Code(s): 404739723 Plan: This patient is a 86-year-old male who was admitted with multiple complex medical issues. He is being treated for acute psychosis by psychiatry. He is showing deterioration in his overall cognitive functioning since admission to the hospital. Repeated CT scans of the brain have been negative for any acute changes. EEG is been consistent with a diffuse encephalopathy with no epileptiform changes. Patient still not responding to medical therapy as provided by psychiatry. We are waiting to see if he may be an candidate for inpatient geriatric psychiatry unit. Psychiatry has been re-consulted today and we are waiting there further recommendations. Case was discussed today at length with Ms. Dixie Garcia in detail. We have updated her on the neurological findings of this patient. We will await the next few days to see if there is any change in his overall mental status and cognitive functioning. As noted he may be a candidate for placement into an inpatient geriatric psych unit and we will await further recommendations from psychiatry. This patient's overall prognosis at this time remains very guarded.
[2017-05-18] MEDS: LEVOTHYROXINE 88 MCG TAB PO SCH (06:23)
[2017-05-18] MEDS: FAMOTIDINE 20 MG TAB PO SCH (08:14)
[2017-05-18] MEDS: POTASSIUM CHLORIDE ER 10 MEQ TAB.ER.PRT PO SCH (08:14)
[2017-05-18] MEDS: ATENOLOL 25 MG TAB PO SCH (08:14)
[2017-05-18] MEDS: DOCUSATE 100 MG CAP PO SCH ×2 (08:14→21:20)
[2017-05-18] MEDS: VIT A,C & E-LUTEIN-MINERALS 1 EACH TAB PO SCH (08:14)
[2017-05-18] MEDS: ENOXAPARIN 40 MG/0.4 ML SYRINGE SQ SCH (08:14)
[2017-05-18] MEDS: OLANZapine 5 MG TAB PO SCH ×3 (08:14→21:20)
[2017-05-18 08:28] LABS: Basophils % (A) 0 %; Eosinophils # (A) 0.1 k/uL (0-0.7); Eosinophils % (A) 2 %; HCT 36.5 % (39.0-53.0); HGB 12.2 gm/dL (13.0-17.5); Lymphocytes % (A) 16 %; MCH 29.9 pg (25.0-35.0); MCHC 33.6 g/dL (31.0-37.0); Mean Platelet Volume 7.4; Monocytes # (A) 0.5 k/uL (0-1.0); Monocytes % (A) 7 %; Neutrophils # (A) 4.7 k/uL (1.3-7.7); Neutrophils % (A) 73 %; Platelet Count 225 k/uL (150-450); RBC 4.09 m/uL (4.30-5.90); RDW 12.7 % (11.5-15.5); WBC 6.4 k/uL (3.8-10.6)
[2017-05-18 08:59] LABS: ALT 75 U/L (21-72); AST 68 U/L (17-59); Albumin 2.9 g/dL (3.5-5.0); Alkaline Phosphatase 106 U/L (38-126); Anion Gap 10 mmol/L; Blood Urea Nitrogen 14 mg/dL (9-20); Carbon Dioxide 24 mmol/L (22-30); Chloride 109 mmol/L (98-107); Glucose 89 mg/dL (74-99); Potassium 3.6 mmol/L (3.5-5.1); Sodium 143 mmol/L (137-145); Total Bilirubin 2.1 mg/dL (0.2-1.3); Total Protein 5.7 g/dL (6.3-8.2)
--- NOTE | 2017-05-18 10:28 | P.PN ---
Subjective Progress Note Date: 05/18/17 This is a 86-year-old male with a known past medical history of hypertension and hypothyroidism. Patient presents to the hospital after having frequent falls starting prior to [place]. He had a fall again this morning where he was walking downstairs and on the last step he continued just to lean forward and he fell hitting the left side of his head on the hardwood floor. He felt that he did not pass out. However, there are concerns that there was a syncopal episode involved per ER report. He is been admitted the hospital for further syncope evaluation. He does report having dizziness upon changing positions from going from a sitting to standing position. He denies any chest pain or shortness of breath. Denies any nausea or vomiting. Denies any fevers chills or sweats, cough, bowel movement changes or urinary symptoms. Computed tomography scan of the brain reveals no acute changes. Chest x-ray showed a new patchy left basilar atelectasis versus infiltrate. Left hip x-ray completed which was negative for any fractures. EKG had shown sinus rhythm with sinus arrhythmia and occasional PVCs. Patient has been admitted to the telemetry for audiology has been consulted. Echo and carotid have been ordered. Patient does still report having issues with hallucinations. He was hospitalized in January for hallucinations and evaluated by psychiatry at that time. 05/03/2017 patient is been having hallucinations as well as easily being agitated. He is requiring the IV Ativan. He has been seen by psychiatry and they have added Seroquel. However, patient is still hallucinating and having episodes of agitation requiring bedside sitter which was ordered for today. Cardiology has cleared patient. Patient be transferred to regular medical floor. 05/04/2017 patient is sleepy but arousable. Patient did require Ativan yesterday. Per nursing staff patient slept through the night. Awaiting psychiatric evaluation. No new complaints 05/07/2017 Patient is still having confusion. Psychiatry is following they have discontinued Seroquel and added Zyprexa. The Zyprexa was started yesterday. The zyprexa dosage adjusted per psychiatry 05/10/2017 patient is still very confused with some aggressive behavior. Psychiatry had adjusted the Zyprexa to 5 mg 3 times a day yesterday. Neurology ordered a computed tomography scan of the brain showing cerebral atrophy with no acute changes. This morning patient ate breakfast without any signs of choking. But later he coughed and coughed up eggs. Concerns about possible aspiration. Chest x-ray and speech therapy evaluation was ordered for swallow evaluation 05/11/2017 patient still confused. [place] when asked "does he know where he is?" Otherwise he does not know his name did not know that he is in the hospital does not know the year. Patient He did not have aggressive behavior through the night. However, it is difficult to tell if patient has difficulty swallowing or he does not like the Diet. He will be seen by speech therapy today. Sodium level is at 153. Patient will not keep his IV in and has not been receiving the D5W half-normal saline. Patient did have a bowel movement. Nursing staff reports hemorrhoids. However, unlikely that patient would be able to tolerate Anusol due to his confusion 05/13/2017 patient is awake today he is lying in bed comfortably. He did require Ativan yesterday and slept's through the day and evening. He knows his name only. He has been able to keep the IV and his sodium level has decreased from 154-150. Still confused had episodes of agitation and combativeness yesterday. Patient seen by speech therapy and according to nursing staff was showing some signs of possible aspiration. Diet adjusted to pured diet with honey thick liquids and aspiration precautions. 05/14/2017 patient is confused. He is up through the night and not sleeping well. Patient was only able to in applesauce this morning and a few bites a yogurt. Psychiatry evaluated patient yesterday and discontinued the Zyprexa. Sodium level is trending down at 149. IV infiltrated last night. There have difficulty restarting IV. Anesthesia has been notified. Patient was not as aggressive during the day yesterday. It is still having mumbling speech. He is alert and orientated times zero. He did not know his own name today. 05/17/2017 patient having agitation and confusion. He is alert and orientated to his name. Still having some hallucinations and mumbling speech. Psychiatry agreed restarted Zyprexa on Wednesday. Sodium level has now improved at 141. IV fluids were discontinued. He is only eating about 25% of his food this morning. AST has gone up from 66-93 ALT from 60-83 and total bili 1.8-2.4. Patient denies any abdominal pain 05/18/2017 patient is awake and alert today. He knows his name he knows the name of the present in [facility]. He is less agitated. He was able to eat about 75% of his breakfast this morning. He had a bowel movement yesterday. Patient has some crusting along the right eye. Conjunctiva is clear. He reports no itching. There is evidence of some yeast in the groin area. Nystatin powder has been ordered Objective - Vital Signs Vital signs: Vital Signs Temp 97.5 F L 05/18/17 07:00 Pulse 84 05/18/17 07:00 Resp 16 05/18/17 07:00 BP 121/72 05/18/17 07:00 Pulse Ox 98 05/18/17 07:00 Intake & Output 05/17/17 05/18/17 05/18/17 18:59 06:59 18:59 Intake Total 420 100 Balance 420 100 Weight 85.5 kg Intake: Oral 420 100 Other: Voiding Method Diaper Diaper Diaper Incontinent Incontinent Incontinent # Voids 3 2 # Bowel Movements 1 - Exam HEENT patient has some mild crusting along the right eye. Conjunctiva is clear Head normocephalic Neck supple Lungs clear to auscultation bilaterally no wheezing or crackles Heart regular rate and rhythm S1-S2, no rub or gallop Abdomen is soft nontender nondistended positive bowel sounds no hepatosplenomegaly Extremities no edema Neuro patient is more awake and less agitated. He knows his name and is able to spell it forward some backwards. He knows that the president of [facility] is [place] - Labs CBC & Chem 7: 05/18/17 07:36 05/18/17 07:36 Labs: Abnormal Lab Results - Last 24 Hours (Table) 05/18/17 05/18/17 Range/Units 07:36 07:36 RBC 4.09 L (4.30-5.90) m/uL Hgb 12.2 L (13.0-17.5) gm/dL Hct 36.5 L (39.0-53.0) % Chloride 109 H (98-107) mmol/L Total Bilirubin 2.1 H (0.2-1.3) mg/dL AST 68 H (17-59) U/L ALT 75 H (21-72) U/L Total Protein 5.7 L (6.3-8.2) g/dL Albumin 2.9 L (3.5-5.0) g/dL Assessment and Plan Assessment: 1. Pre-syncopal episode with frequent falls: May have been related to sinus bradycardia and significant bilateral lower extremity weakness that may be contributing to his falls. Computed tomography scan of the brain showed no acute changes. Did reveal moderate diffuse age-related cerebral atrophy and chronic small vessel ischemic changes redemonstrated. EKG shows sinus rhythm with sinus arrhythmia and occasional PVCs. Echocardiogram showed preserved EF with no significant valvular abnormalities. Carotid Doppler with no significant hemodynamic stenosis. Patient was seen and evaluated by cardiology and neurology. PT/OT consultation requested. Cardiology has signed off 2. Essential hypertension resume atenolol 3. Hypothyroidism resume Synthroid 4. Psychosis: With Hallucinations with agitation. Patient followed closely by psychiatry. They have discontinued the Seroquel. zyprex 5 mg 3 times a day restarted on Wednesday. Two Computed tomography scan of the brain showed no acute changes. His hypernatremia has improved. He does likely have some underlying dementia contributing. However, we'll have psych reevaluate patient for further recommendations. Also evaluate patient for possible inpatient psych placement. Awaiting psychiatric evaluation. Patient's agitation and confusion appear to have shown some improvement. Case was discussed with neurology in detail yesterday. At this time we'll await further psychiatric recommendations. Possibly patient is a candidate for inpatient psychiatry care or ECF placement. Patient is more awake and alert today. 5. Atelectasis: Continue incentive vomiting. New patchy left basilar atelectasis and/or infiltrate noted on chest x-ray. Likely this is atelectasis doubt pneumonia. Patient denies any cough or fever. no elevated white count. 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 Sinus bradycardia cardiology has decreased the dose of his beta jaskaran. Heart rate has improved. TSH level normal 8. 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 Difficulty with swallowing. Patient seen by speech therapy diet has been adjusted to a pured diet with honey thick liquids and aspiration precautions. Chest x-ray showed no evidence of pneumonia did reveal some atelectasis. Patient does have incentive spirometer at bedside but due to his confusion he has not used 10. Hypernatremia with poor oral intake and dehydration. Sodium has been corrected. IV fluids discontinued 11. Mildly elevated LFTs. No abdominal pain. Continue to monitor. Repeat labs in a.m. 12. Candidiasis of the groin add nystatin powder Prophylaxis Pepcid and DVT prophylaxis Lovenox performed an examination of the patient and discussed their management with the physician [employer]. I have reviewed the Physician [employer]'s notes and agree with the documented findings and plan of care
[2017-05-18] MEDS: NYSTATIN 100,000 UNIT/GM POWD 15 GM TOPICAL SCH ×2 (13:32→21:21)
[2017-05-18] MEDS: MULTIVITAMINS, THERA 1 EACH TAB PO SCH (13:32)
[2017-05-18] MEDS: TOBRAMYCIN 0.3% OPHTH DROPS 5 ML BTL BOTH EYES SCH ×3 (21:20→22:56)
--- NOTE | 2017-05-18 22:01 | CONS ---
CONSULTATION DATE OF SERVICE: 05/18/2017 PURPOSE FOR CONSULTATION: Evaluate for altered mental status. INTERVAL HISTORY: The patient has been doing fair. It is noted that I had seen him a couple times last week and he seemed more confused. He was not able to get out much words that were intelligible. He continued to be restless. When I saw him today, he seemed to be back to his baseline that we saw when he first came into the hospital. He could talk in words, phrases and sentences. He could make his meaning be fairly clear. On the other hand, most of what he says is not too connected to things going on around him. He could answer basic orienting questions appropriately. He still tended to ramble and make odd statements that did not make much sense. He seemed to have a fairly calm manner. He did appear to be distressed. ASSESSMENT: At this point, the patient appears to be at his best baseline. My understanding is that he will be discharged to a care facility. I would agree that is the appropriate disposition. It would be reasonable for him to continue on Zyprexa 5 mg 3 times a day as his only psychotropic medication. MMEMILEL / DANKN: [id number] /
[2017-05-19] MEDS: TOBRAMYCIN 0.3% OPHTH DROPS 5 ML BTL BOTH EYES SCH ×7 (05:31→23:38)
[2017-05-19] MEDS: LEVOTHYROXINE 88 MCG TAB PO SCH (06:10)
[2017-05-19 09:32] LABS: Basophils % (A) 0 %; Eosinophils # (A) 0.1 k/uL (0-0.7); Eosinophils % (A) 3 %; HCT 37.8 % (39.0-53.0); HGB 12.2 gm/dL (13.0-17.5); Lymphocytes % (A) 19 %; MCH 29.2 pg (25.0-35.0); MCHC 32.2 g/dL (31.0-37.0); MCV 90.8 fL (80.0-100.0); Mean Platelet Volume 7.2; Monocytes # (A) 0.3 k/uL (0-1.0); Monocytes % (A) 6 %; Neutrophils # (A) 3.6 k/uL (1.3-7.7); Neutrophils % (A) 69 %; Platelet Count 206 k/uL (150-450); RBC 4.16 m/uL (4.30-5.90); RDW 12.7 % (11.5-15.5); WBC 5.2 k/uL (3.8-10.6)
[2017-05-19 09:38] LABS: ALT 68 U/L (21-72); AST 46 U/L (17-59); Albumin 2.8 g/dL (3.5-5.0); Alkaline Phosphatase 94 U/L (38-126); Anion Gap 10 mmol/L; Blood Urea Nitrogen 14 mg/dL (9-20); Calcium 8.9 mg/dL (8.4-10.2); Carbon Dioxide 25 mmol/L (22-30); Chloride 109 mmol/L (98-107); Glucose 87 mg/dL (74-99); Potassium 3.5 mmol/L (3.5-5.1); Sodium 144 mmol/L (137-145); Total Bilirubin 1.3 mg/dL (0.2-1.3); Total Protein 5.6 g/dL (6.3-8.2)
[2017-05-19] MEDS: ENOXAPARIN 40 MG/0.4 ML SYRINGE SQ SCH (11:21)
[2017-05-19] MEDS: ATENOLOL 25 MG TAB PO SCH (11:21)
[2017-05-19] MEDS: DOCUSATE 100 MG CAP PO SCH ×2 (11:21→21:50)
[2017-05-19] MEDS: ASPIRIN 81 MG PO SCH (11:21)
[2017-05-19] MEDS: POTASSIUM CHLORIDE ER 10 MEQ TAB.ER.PRT PO SCH (11:22)
[2017-05-19] MEDS: NYSTATIN 100,000 UNIT/GM POWD 15 GM TOPICAL SCH ×2 (11:22→21:55)
[2017-05-19] MEDS: OLANZapine 5 MG TAB PO SCH ×3 (11:22→21:54)
[2017-05-19] MEDS: FAMOTIDINE 20 MG TAB PO SCH (11:22)
[2017-05-19] MEDS: MULTIVITAMINS, THERA 1 EACH TAB PO SCH (11:24)
[2017-05-19] MEDS: VIT A,C & E-LUTEIN-MINERALS 1 EACH TAB PO SCH (11:24)
--- NOTE | 2017-05-19 13:02 | P.PN ---
Subjective This is a 86-year-old male with a known past medical history of hypertension and hypothyroidism. Patient presents to the hospital after having frequent falls starting prior to [place]. He had a fall again this morning where he was walking downstairs and on the last step he continued just to lean forward and he fell hitting the left side of his head on the hardwood floor. He felt that he did not pass out. However, there are concerns that there was a syncopal episode involved per ER report. He is been admitted the hospital for further syncope evaluation. He does report having dizziness upon changing positions from going from a sitting to standing position. He denies any chest pain or shortness of breath. Denies any nausea or vomiting. Denies any fevers chills or sweats, cough, bowel movement changes or urinary symptoms. Computed tomography scan of the brain reveals no acute changes. Chest x-ray showed a new patchy left basilar atelectasis versus infiltrate. Left hip x-ray completed which was negative for any fractures. EKG had shown sinus rhythm with sinus arrhythmia and occasional PVCs. Patient has been admitted to the telemetry for audiology has been consulted. Echo and carotid have been ordered. Patient does still report having issues with hallucinations. He was hospitalized in January for hallucinations and evaluated by psychiatry at that time. 05/03/2017 patient is been having hallucinations as well as easily being agitated. He is requiring the IV Ativan. He has been seen by psychiatry and they have added Seroquel. However, patient is still hallucinating and having episodes of agitation requiring bedside sitter which was ordered for today. Cardiology has cleared patient. Patient be transferred to regular medical floor. 05/04/2017 patient is sleepy but arousable. Patient did require Ativan yesterday. Per nursing staff patient slept through the night. Awaiting psychiatric evaluation. No new complaints 05/07/2017 Patient is still having confusion. Psychiatry is following they have discontinued Seroquel and added Zyprexa. The Zyprexa was started yesterday. The zyprexa dosage adjusted per psychiatry 05/10/2017 patient is still very confused with some aggressive behavior. Psychiatry had adjusted the Zyprexa to 5 mg 3 times a day yesterday. Neurology ordered a computed tomography scan of the brain showing cerebral atrophy with no acute changes. This morning patient ate breakfast without any signs of choking. But later he coughed and coughed up eggs. Concerns about possible aspiration. Chest x-ray and speech therapy evaluation was ordered for swallow evaluation 05/11/2017 patient still confused. [place] when asked "does he know where he is?" Otherwise he does not know his name did not know that he is in the hospital does not know the year. Patient He did not have aggressive behavior through the night. However, it is difficult to tell if patient has difficulty swallowing or he does not like the Diet. He will be seen by speech therapy today. Sodium level is at 153. Patient will not keep his IV in and has not been receiving the D5W half-normal saline. Patient did have a bowel movement. Nursing staff reports hemorrhoids. However, unlikely that patient would be able to tolerate Anusol due to his confusion On 05/12/2017 patient is very confused occasionally agitated he is refusing all medications he is refusing all oral intake, his sodium and BUN continue to go higher he does not have an IV and has pulled all of his previous IV access lines. At this time will give Ativan 2 mg IM and an attempt to secure an IV line for hydration will ask psychiatry to reevaluate patient for further management. 05/13/2017 patient is awake today he is lying in bed comfortably. He did require Ativan yesterday and slept's through the day and evening. He knows his name only. He has been able to keep the IV and his sodium level has decreased from 154-150. Still confused had episodes of agitation and combativeness yesterday. Patient seen by speech therapy and according to nursing staff was showing some signs of possible aspiration. Diet adjusted to pured diet with honey thick liquids and aspiration precautions. 05/14/2017 patient is confused. He is up through the night and not sleeping well. Patient was only able to in applesauce this morning and a few bites a yogurt. Psychiatry evaluated patient yesterday and discontinued the Zyprexa. Sodium level is trending down at 149. IV infiltrated last night. There have difficulty restarting IV. Anesthesia has been notified. Patient was not as aggressive during the day yesterday. It is still having mumbling speech. He is alert and orientated times zero. He did not know his own name today. 05/17/2017 patient having agitation and confusion. He is alert and orientated to his name. Still having some hallucinations and mumbling speech. Psychiatry agreed restarted Zyprexa on Wednesday. Sodium level has now improved at 141. IV fluids were discontinued. He is only eating about 25% of his food this morning. AST has gone up from 66-93 ALT from 60-83 and total bili 1.8-2.4. Patient denies any abdominal pain 05/18/2017 patient is awake and alert today. He knows his name he knows the name of the present in [facility]. He is less agitated. He was able to eat about 75% of his breakfast this morning. He had a bowel movement yesterday. Patient has some crusting along the right eye. Conjunctiva is clear. He reports no itching. There is evidence of some yeast in the groin area. Nystatin powder has been ordered Objective - Vital Signs Vital signs: Vital Signs Temp 97.8 F 05/19/17 11:38 Pulse 58 L 05/19/17 11:38 Resp 16 05/19/17 11:38 BP 158/72 05/19/17 11:38 Pulse Ox 98 05/19/17 11:38 Intake & Output 05/18/17 05/19/17 05/19/17 18:59 06:59 18:59 Intake Total 180 200 Output Total 200 Balance 180 200 -200 Weight 85.5 kg Intake: Oral 180 200 Output: Urine 200 Other: Voiding Method Diaper Diaper Diaper Incontinent Incontinent Incontinent # Voids 3 2 - Exam Head normocephalic Neck supple Lungs clear to auscultation bilaterally no wheezing or crackles Heart regular rate and rhythm S1-S2, no rub or gallop Abdomen is soft nontender nondistended positive bowel sounds no hepatosplenomegaly Extremities no edema Neuro Patient is sleepy but arousable. Able to answer questions. gets agitated easily - Labs CBC & Chem 7: 05/19/17 08:36 05/19/17 08:36 Labs: Abnormal Lab Results - Last 24 Hours (Table) 05/19/17 05/19/17 Range/Units 08:36 08:36 RBC 4.16 L (4.30-5.90) m/uL Hgb 12.2 L (13.0-17.5) gm/dL Hct 37.8 L (39.0-53.0) % Chloride 109 H (98-107) mmol/L Total Protein 5.6 L (6.3-8.2) g/dL Albumin 2.8 L (3.5-5.0) g/dL Assessment and Plan Plan: 1. Pre-syncopal episode with frequent falls: May have been related to sinus bradycardia and significant bilateral lower extremity weakness that may be contributing to his falls. Computed tomography scan of the brain showed no acute changes. Did reveal moderate diffuse age-related cerebral atrophy and chronic small vessel ischemic changes redemonstrated. EKG shows sinus rhythm with sinus arrhythmia and occasional PVCs. Echocardiogram showed preserved EF with no significant valvular abnormalities. Carotid Doppler with no significant hemodynamic stenosis. Patient was seen and evaluated by cardiology and neurology. PT/OT consultation requested. Cardiology has signed off 2. Essential hypertension resume atenolol 3. Hypothyroidism resume Synthroid 4. Psychosis: With Hallucinations with agitation. Patient followed closely by psychiatry. They have discontinued the Seroquel. zyprex 5 mg 3 times a day restarted on Wednesday. Two Computed tomography scan of the brain showed no acute changes. His hypernatremia has improved. He does likely have some underlying dementia contributing. However, we'll have psych reevaluate patient for further recommendations. Also evaluate patient for possible inpatient psych placement. Awaiting psychiatric evaluation. Patient's agitation and confusion appear to have shown some improvement. Case was discussed with neurology in detail yesterday. At this time we'll await further psychiatric recommendations. Possibly patient is a candidate for inpatient psychiatry care or ECF placement. Patient is more awake and alert today. 5. Atelectasis: Continue incentive vomiting. New patchy left basilar atelectasis and/or infiltrate noted on chest x-ray. Likely this is atelectasis doubt pneumonia. Patient denies any cough or fever. no elevated white count. 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 Sinus bradycardia cardiology has decreased the dose of his beta jaskaran. Heart rate has improved. TSH level normal 8. 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 Difficulty with swallowing. Patient seen by speech therapy diet has been adjusted to a pured diet with honey thick liquids and aspiration precautions. Chest x-ray showed no evidence of pneumonia did reveal some atelectasis. Patient does have incentive spirometer at bedside but due to his confusion he has not used 10. Hypernatremia with poor oral intake and dehydration. Sodium has been corrected. IV fluids discontinued 11. Mildly elevated LFTs. No abdominal pain. Continue to monitor. Repeat labs in a.m. 12. Candidiasis of the groin add nystatin powder Prophylaxis Pepcid and DVT prophylaxis Lovenox Awaiting prior authorization for possible discharge to a [facility] facility.
[2017-05-20] MEDS: TOBRAMYCIN 0.3% OPHTH DROPS 5 ML BTL BOTH EYES SCH ×6 (04:00→17:31)
[2017-05-20] MEDS: POTASSIUM CHLORIDE ER 10 MEQ TAB.ER.PRT PO SCH (08:42)
[2017-05-20] MEDS: ATENOLOL 25 MG TAB PO SCH (08:42)
[2017-05-20] MEDS: LEVOTHYROXINE 88 MCG TAB PO SCH (08:42)
[2017-05-20] MEDS: OLANZapine 5 MG TAB PO SCH ×2 (08:42→14:58)
[2017-05-20] MEDS: FAMOTIDINE 20 MG TAB PO SCH (08:42)
[2017-05-20] MEDS: VIT A,C & E-LUTEIN-MINERALS 1 EACH TAB PO SCH (08:42)
[2017-05-20] MEDS: DOCUSATE 100 MG CAP PO SCH (08:42)
[2017-05-20] MEDS: ENOXAPARIN 40 MG/0.4 ML SYRINGE SQ SCH (08:42)
[2017-05-20] MEDS: NYSTATIN 100,000 UNIT/GM POWD 15 GM TOPICAL SCH (08:43)
[2017-05-20 09:00] LABS: Basophils % (A) 0 %; Eosinophils # (A) 0.1 k/uL (0-0.7); Eosinophils % (A) 2 %; HGB 12.5 gm/dL (13.0-17.5); Lymphocytes % (A) 16 %; MCH 28.2 pg (25.0-35.0); MCHC 31.2 g/dL (31.0-37.0); MCV 90.1 fL (80.0-100.0); Mean Platelet Volume 8.7; Monocytes # (A) 0.4 k/uL (0-1.0); Monocytes % (A) 6 %; Neutrophils # (A) 4.4 k/uL (1.3-7.7); Neutrophils % (A) 74 %; Platelet Count 228 k/uL (150-450); RBC 4.44 m/uL (4.30-5.90); RDW 13.5 % (11.5-15.5)
[2017-05-20 09:22] LABS: ALT 61 U/L (21-72); AST 50 U/L (17-59); Albumin 3.1 g/dL (3.5-5.0); Alkaline Phosphatase 107 U/L (38-126); Anion Gap 11 mmol/L; Blood Urea Nitrogen 20 mg/dL (9-20); Calcium 9.4 mg/dL (8.4-10.2); Carbon Dioxide 28 mmol/L (22-30); Chloride 108 mmol/L (98-107); Glucose 116 mg/dL (74-99); Sodium 147 mmol/L (137-145); Total Bilirubin 1.3 mg/dL (0.2-1.3); Total Protein 6.1 g/dL (6.3-8.2)
[2017-05-20] MEDS: MULTIVITAMINS, THERA 1 EACH TAB PO SCH (12:53)
--- NOTE | 2017-05-20 14:22 | P.DS ---
Providers Date of admission: 04/30/17 14:09 Expected date of discharge: 05/20/17 Attending physician: Natalia Hinds Consults: 04/30/17 14:10 Consult Physician Routine Consulting Provider: Mary Alarcon Consult Reason/Comments: Syncope Do you want consulting provider notified?: Yes 04/30/17 14:26 Consult Physician Routine Consulting Provider: Gray Guerin Consult Reason/Comments: syncope Do you want consulting provider notified?: Yes 04/30/17 14:52 Consult Physician Routine Consulting Provider: Reji Zelaya Consult Reason/Comments: hallucinations Do you want consulting provider notified?: Yes 05/17/17 12:15 Consult Physician Routine Consulting Provider: Reji Zelaya Consult Reason/Comments: hallucinations, agitation, possible inpatient psych placment Do you want consulting provider notified?: Yes Primary care physician: Natalia Guzman [facility] Course: Discharge diagnosis 1. Pre-syncopal episode with frequent falls: May have been related to sinus bradycardia and significant bilateral lower extremity weakness that may be contributing to his falls. Computed tomography scan of the brain showed no acute changes. Did reveal moderate diffuse age-related cerebral atrophy and chronic small vessel ischemic changes redemonstrated. EKG shows sinus rhythm with sinus arrhythmia and occasional PVCs. Echocardiogram showed preserved EF with no significant valvular abnormalities. Carotid Doppler with no significant hemodynamic stenosis. Patient was seen and evaluated by cardiology and neurology. PT/OT consultation requested. Cardiology has signed off 2. Essential hypertension resume atenolol 3. Hypothyroidism resume Synthroid 4. Psychosis: With Hallucinations with agitation. Patient followed closely by psychiatry. They have discontinued the Seroquel. zyprex 5 mg 3 times a day restarted on Wednesday. Two Computed tomography scan of the brain showed no acute changes. His hypernatremia has improved. He does likely have some underlying dementia contributing. However, we'll have psych reevaluate patient for further recommendations. Patient reevaluated by psychiatry. The recommending to continue Zyprexa 5 mg 3 times a day. Patient has had no further episodes of agitation or combative behavior. Still mildly confused. But awake and alert. 5. Atelectasis: Continue incentive vomiting. New patchy left basilar atelectasis and/or infiltrate noted on chest x-ray. Likely this is atelectasis doubt pneumonia. Patient denies any cough or fever. no elevated white count. 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 Sinus bradycardia cardiology has decreased the dose of his beta jaskaran. Heart rate has improved. TSH level normal 8. 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 Difficulty with swallowing. Patient seen by speech therapy diet has been adjusted to a pured diet with honey thick liquids and aspiration precautions. Chest x-ray showed no evidence of pneumonia did reveal some atelectasis. Patient does have incentive spirometer at bedside but due to his confusion he has not used 10. Hypernatremia with poor oral intake and dehydration. Sodium has been corrected. IV fluids discontinued 11. Mildly elevated LFTs. No abdominal pain. Continue to monitor. Repeat labs in a.m. 12. Candidiasis of the groin add nystatin powder 13. Conjunctivitis of the right eye continue tobramycin eyedrops for total of 7 days 14. Dementia Hospital course This is a 86-year-old male with a known past medical history of hypertension and hypothyroidism. Patient presents to the hospital after having frequent falls starting prior to . He had a fall again this morning where he was walking downstairs and on the last step he continued just to lean forward and he fell hitting the left side of his head on the hardwood floor. He felt that he did not pass out. However, there are concerns that there was a syncopal episode involved per ER report. He is been admitted the hospital for further syncope evaluation. He does report having dizziness upon changing positions from going from a sitting to standing position. He denies any chest pain or shortness of breath. Denies any nausea or vomiting. Denies any fevers chills or sweats, cough, bowel movement changes or urinary symptoms. Computed tomography scan of the brain reveals no acute changes. Chest x-ray showed a new patchy left basilar atelectasis versus infiltrate. Left hip x-ray completed which was negative for any fractures. EKG had shown sinus rhythm with sinus arrhythmia and occasional PVCs. Patient has been admitted to the telemetry floor and cardiology has been consulted. Echo and carotid have been ordered. Patient does still report having issues with hallucinations. He was hospitalized in January for hallucinations and evaluated by psychiatry at that time. Echo showed a preserved EF and carotid Doppler showed no significant hemodynamic stenosis. Cardiology did decrease patient's beta jaskaran during this admission down to 25 mg daily. He's had no further bradycardia. This may have been contributing to his presyncopal episodes of falls. As well as he's been having increase in his lower extremity weakness. Patient had 2 computed tomography scan of the brain completed during this admission with no evidence of acute stroke. Cardiology did clear him for discharge. Patient had been followed closely by neurology and psychiatry during this admission. Patient became very confused agitated and combative. His initial discharge was held because of this. He was not able to proceed to an ECF placement. Since then Seroquel was discontinued. And placement was placed on Zyprexa. Dose has been adjusted by psychiatry. Patient's mentation has shown improvement. He is still confused but not agitated or combative. Patient does have some underlying dementia that may be a contributing factor to his symptoms. His hypernatremia was corrected. The patient continued to have the confusion. But again as the Zyprexa dose was adjusted and continued. Patient's agitation and combative behavior have improved. Patient's diet has been adjusted per speech therapy. And patient will benefit from rehabilitation. Patient is medically stable for discharge. He has been cleared by consulting physicians for discharge. Please refer to chart for any further details. I performed an examination of the patient and discussed their management with the physician Emt/Dispatcher. I have reviewed the Physician Emt/Dispatcher's notes and agree with the documented findings and plan of care Patient Condition at Discharge: Stable Plan - Discharge Summary Discharge Rx Participant: No New Discharge Prescriptions: New Atenolol [Tenormin] 25 mg PO DAILY tab Nystatin 100,000 Unit/gm Powd [Mycostatin Powder] 1 applic TOPICAL BID applic OLANZapine [ZyPREXA] 5 mg PO TID #90 tab Tobramycin 0.3% Ophth Soln [Tobrex 0.3% Ophth Soln] 1 drops BOTH EYES Q3HR 7 Days ml Continue Potassium Chloride [Klor-Con 10] 10 meq PO DAILY Levothyroxine Sodium [Synthroid] 88 mcg PO DAILY Aspirin EC [Ecotrin Low Dose] 81 mg PO MOWEFR Vit A/Vit C/Vit E/Zinc/Copper [ICAPS SOFTGEL] 1 cap PO DAILY Multivit-Min/FA/Lycopen/Lutein [Centrum Silver Tablet] 1 tab PO DAILY Discontinued Atenolol [Tenormin] 75 mg PO DAILY Discharge Medication List Aspirin EC [Ecotrin Low Dose] 81 mg PO MOWEFR 02/11/17 [History] Levothyroxine Sodium [Synthroid] 88 mcg PO DAILY 02/11/17 [History] Potassium Chloride [Klor-Con 10] 10 meq PO DAILY 02/11/17 [History] Multivit-Min/FA/Lycopen/Lutein [Centrum Silver Tablet] 1 tab PO DAILY 04/30/17 [ History] Vit A/Vit C/Vit E/Zinc/Copper [ICAPS SOFTGEL] 1 cap PO DAILY 04/30/17 [History] Atenolol [Tenormin] 25 mg PO DAILY tab 05/06/17 [Rx] Nystatin 100,000 Unit/gm Powd [Mycostatin Powder] 1 applic TOPICAL BID applic 05/20/17 [Rx] OLANZapine [ZyPREXA] 5 mg PO TID #90 tab 05/20/17 [Rx] Tobramycin 0.3% Ophth Soln [Tobrex 0.3% Ophth Soln] 1 drops BOTH EYES Q3HR 7 Days ml 05/20/17 [Rx] Follow up Appointment(s)/Referral(s): Natalia Hinds MD [Primary Care Provider] - 1 Week Activity/Diet/Wound Care/Special Instructions: Diet: [place] thick liquids, Aspiration precautions, cardiac diet Activity: as tolerated Patient to be discharged to [facility] Disposition: TRANSFER TO SNF/ECF
[2017-05-20 14:25] VITALS: BP 144/65; PULSE 73; TEMP 98
[2017-05-20 18:20] VITALS: RESP 16
== END 2017-05-20 18:15 | DRG 309 ==
LOC: EC 11:26 → 6SEL 14:09 → 5MS5E 05-03 21:28
PROVIDERS: ADMIT Internal Medicine; ATTEND Internal Medicine
DX: R00.1 Bradycardia, unspecified (principal); E87.0 Hyperosmolality and hypernatremia; F03.91 Unspecified dementia, unspecified severity, with behavioral disturbance; H81.20 Vestibular neuronitis, unspecified ear; E86.0 Dehydration; B37.2 Candidiasis of skin and nail; I95.1 Orthostatic hypotension; F23 Brief psychotic disorder; J98.11 Atelectasis; Z78.1 Physical restraint status; R53.1 Weakness; E03.9 Hypothyroidism, unspecified; E66.3 Overweight; E87.6 Hypokalemia; H10.9 Unspecified conjunctivitis; I10 Essential (primary) hypertension; I49.3 Ventricular premature depolarization; K64.9 Unspecified hemorrhoids; R29.6 Repeated falls; W19.XXXA Unspecified fall, initial encounter; Z79.899 Other long term (current) drug therapy; Z91.81 History of falling
CPT/HCPCS: 36415; 70450; 71046; 73502; 80053; 80061; 81003; 82140; 82550; 82553; 84443; 84484; 85025; 85610; 85730; 93005; 93306; 93880; 94760; 95819; 96360; 96361; 99285